=== PATIENT | female | born 1955 | race Caucasian/White ===

== ENCOUNTER 2019-05-04 07:53 | Day surgery (SDC) | payer OTHER ==
[2019-05-04] MEDS ORDERED: EPINEPHRINE/PF 1 MG/ML AMP ONE (08:27)
[2019-05-04] MEDS ORDERED: NS 0.9% VIAL 10 ML ONE (08:27)
[2019-05-04] MEDS ORDERED: LIDOCAINE 1% MPF 2 ML AMPULE ONE (08:28)
[2019-05-04] MEDS ORDERED: BALANCED SALT IRRIG PLAIN 500 ML BTL IRR ONE (08:28)
[2019-05-04] MEDS ORDERED: MOXIFLOXACIN HCL 10 DROPS/ML **OR USE OPTH ONE (08:28)
[2019-05-04] MEDS ORDERED: DUOVISC 1 KIT OPTH ONE (08:28)
[2019-05-04] MEDS ORDERED: LIDOCAINE 2% MPF 5 ML VIAL ONE (08:32)
[2019-05-04] MEDS ORDERED: BUPIVACAINE 0.25% PF 10 ML VIAL ONE (08:32)
[2019-05-04] MEDS ORDERED: NA CHLORIDE 0.9% 500 ML ONE (08:33)
[2019-05-04] MEDS ORDERED: LIDOCAINE HCL/PF 3.5% OPTH GEL ONE (08:33)
--- OUTSIDE RECORDS SUMMARY | 2019-05-04 08:59 | XMS REPORT | Continuity of Care Document ---
:1955 Author Organization [facility] Address [address] [place] [address] Phone Unavailable Care Team Providers Name Role Phone NEELAM GARCIA NP Primary Care Physician Insurance Providers Guarantor Jeremy Espana Address [address] [place] [address] Email [email or web address] Payer Medicare Policy Number [id number] Subscriber's Name Jeremy Espana Relationship Self / Same As Patient Group Number NA Group Name NA Payer O Policy Number [id number] Subscriber's Name Jeremy Espana Relationship Self / Same As Patient Group Number [id number] Group Name [employer] Advance Directives Directive Response Recorded Date/Time Patient/Family Given Education Material R/T Directives? Yes 01/21/19 12:51pm Problems Medical Problem Onset Date Status Left Achilles tendinitis Unknown Medications Current Home Medications Medication Dose Units Route Directions Days Qty Instructions Start Date Estrogens,Conj * 0.45 Mg ORAL Daily (Premarin 0.45 Mg*) 0.45 Mg Tab Loratadine/Pse Sulf 1 Tab ORAL Daily 10/240 Mg * (Claritin D 24 Hour 10/240 Mg *) 1 Tab Tab Social History No social history information available. Hospital Discharge Instructions No hospital discharge instruction information available. Plan of Care Prescriptions See Medication Section Functional Status No functional status information available. Allergies, Adverse Reactions, Alerts No known allergies. Immunizations No immunization information available. Vital Signs No vital sign information available. Results No relevant diagnostic test, laboratory data and/or discharge summary information available. Procedures Procedure Status Date Provider(s) X-RAY EXAM OF FOOT Completed 01/13/19 X-RAY EXAM OF FOOT Completed 01/13/19 Encounters Encounter Location Arrival/Admit Date Discharge/Depart Date Attending Provider Discharged [place] 01/21/19 12:52pm 01/25/19 11:59pm Glenn [facility] Registered [place] 01/13/19 11:45am Jaya [facility] Recent Diagnosis Left Achilles tendinitis
--- OUTSIDE RECORDS SUMMARY | 2019-05-04 08:59 | XMS REPORT | Continuity of Care Document ---
:1955 Author Organization [facility] Address [address] [place] [address] Phone Unavailable Care Team Providers Name Role Phone NEELAM GARCIA NP Primary Care Physician Insurance Providers Guarantor Jeremy Espana Address [address] [place] [address] Email [email or web address] Payer Medicare Policy Number [id number] Subscriber's Name Jeremy Espana Relationship Self / Same As Patient Group Number NA Group Name NA Payer O Policy Number [id number] Subscriber's Name Jeremy Espana Relationship Self / Same As Patient Group Number [id number] Group Name [employer] Advance Directives Directive Response Recorded Date/Time Patient/Family Given Education Material R/T Directives? No 01/27/19 6:18am Problems Medical Problem Onset Date Status Left [...] 01/13/19 X-RAY EXAM OF FOOT Completed 01/13/19 ULTRASOUND THERAPY Completed 01/21/19 PT EVAL LOW COMPLEX 20 MIN Completed 01/21/19 MOBILITY CURRENT STATUS Completed 01/21/19 MOBILITY GOAL STATUS Completed 01/21/19 Encounters Encounter Location Arrival/Admit Date Discharge/Depart Date Attending Provider Discharged [place] 02/19/19 11:00am 02/24/19 11:59pm Glenn [facility] Discharged [place] 01/21/19 12:52pm 01/25/19 11:59pm Glenn [facility] Registered [place] 01/13/19 11:45am Jaya [facility] Recent Diagnosis Left Achilles tendinitis
[2019-05-04] MEDS: PHENYLEPHRINE 10% OPTH 5ML ONE ×3 (09:00→09:11)
[2019-05-04] MEDS: CYCLOPENTOLATE 1% OPTH 2 ML ONE ×3 (09:00→09:11)
[2019-05-04] MEDS ORDERED: MIDAZOLAM HCL 2 MG/2 ML INJ ONE (09:54)
[2019-05-04] MEDS: TETRACAINE HCL 0.5% 4ML OPTH ONE ×2 (10:09→10:11)
[2019-05-04] MEDS ORDERED: FENTANYL CITR 100 MCG/2 ML ONE (10:28)
--- NOTE | 2019-05-04 10:37 | P.BOP ---
Preoperative diagnosis: Nuclear sclerotic cataract OS Postoperative diagnosis: Same Primary procedure: Phacoemulsification with IOL OS Estimated blood loss: None Anesthesia: Local (Topical with anesthesia for cataract surgery) Complications: None Implants: ZCB00 +16.0 Transferred to: Other (Day surgery) Condition: Good
--- NOTE | 2019-05-04 22:20 | OP ---
Date of Procedure: 05/04/2019 Surgeon: Gena Pat MD Anesthesiologist: Elida Myers CRNA; Celsa Nevarez CRNA and Sammy Nobles M.D. Preoperative Diagnosis: Nuclear sclerotic cataract, OS (left eye). Operation Performed: Phacoemulsification with intraocular lens implant, left eye. Anesthesia: Per cataract surgery. Complications: None. Description Of Procedure: In the operating room, the patient was prepped and draped in the usual cameron rile fashion for ophthalmic surgery. A lid speculum was placed in the left eye. Two paracentesis si amadou were made superiorly and inferiorly in the limbal cornea. Viscoat was placed in the anterior oleg mber and a crescent blade was used to make a corneal groove and tunnel, and a keratome was used to en ter the anterior chamber. Provisc was placed in the anterior chamber and a 360-degree capsulotomy wa s performed with a cystitome. The lens was hydrodissected with BSS and rotated freely. The lens was removed with a stop and chop technique. A 5.48 phaco CDE was used to remove the lens. Residual cor tre was removed with the irrigation and aspiration. Provisc was placed in the capsular bag. A ZCB00 +16.0 lens was placed in the capsular bag without complications. Irrigation and aspiration were use d to remove residual viscoelastic. The paracentesis sites were hydrated with BSS. The wound and par acentesis sites were inspected and found to be watertight. Vigamox 0.07 cc was placed intracamerally at the end of the procedure. The eye was irrigated with balanced salt solution. The eye was patche d with a soft cotton patch and Damon metal shield. The patient was returned to day surgery in good condition. Comments: Akten was placed in the eye in day surgery and irrigated out of the eye with BSS in the OR . Preservative-free 1% lidocaine was placed in the anterior chamber prior to Viscoat. Discharge Instructions: Ms. Espana is discharged to home in good condition and is to follow up with Dr Antonio Pat in the morning. LESLIE/JEREMIASL Voice ID: [id number] Report ID: [id number]
== END 2019-05-04 11:15 | disposition home or self-care (01) ==
LOC: OR 07:53
PROVIDERS: ATTEND Ophthalmology Retina Specialist
PROC: 08RK3JZ Replacement of Left Lens with Synthetic Substitute, Percutaneous Approach (ICD-10-PCS; principal; 2019-05-04 09:15)
DX: H25.12 Age-related nuclear cataract, left eye (principal)
CPT/HCPCS: 66984; J0171; J2250; J3010; J2001

== ENCOUNTER 2020-02-19 15:43 | Inpatient (IN) | payer OTHER ==
--- NOTE | 2020-02-19 13:35 | R.PREADM ---
SCREENING DATE AND TIME 02/18/2020 11:17 (CDT) ANTICIPATED REHAB ADMISSION DATE 02/20/2020 REFERRING FACILITY Acute care hospital REFERRAL DATE AND TIME 02/18/2020 11:17 (CDT) REFERRAL OFFICE PHONE ACUTE ADMIT DATE 02/05/2020 Previous Rehabilitation(s): No. ACUTE PEDIATRICIAN/MEDICAL DOCTOR/DC MATHEMATICS ACADEMIC CHAIR giovanni ATTENDING PHYSICIAN MARGARITO FARRELL REFERRING PHYSICIAN MARGARITO FARRELL REHAB FACILITY [facility] CLINICAL LIAISON Adalberto Byrd PHYSICIAN REVIEWER Dr. Florentin Hoover M.D. MR# [id number] NAME JEREMY ESPANA ADDRESS [address] [facility] [address] [facility] [address] DATE OF 1955 AGE 64 SSN# [id number] GENDER female MARITAL STATUS RACE white ADMIT FROM 02 - [facility] PRE-HOSPITAL LIVING SETTING 01 - Home (private home/apt. board/care, assisted living, shelter, transitional living) HOME TYPE AND DETAILS Type of home: single family house # of levels in the residence: 1 # of steps within the residence: 0 # of steps to enter the residence: 0 PRE-HOSPITAL LIVING WITH Family/Relatives FAMILY SUPPORT Yes PRIMARY FAMILY CONTACT NAME Prasad Espana PRIMARY FAMILY CONTACT PHONE [phone] PHONE PRIMARY FAMILY CONTACT ON ADM.? no IS PRIMARY FAMILY CONTACT AUTH. REP.? no 1ST EMERGENCY CONTACT Prasad Espana 1ST CONTACT PHONE [phone] PHONE 1ST CONTACT ON ADM. no IS 1ST CONTACT AUTH. REP.? no PHONE 2ND CONTACT ON ADM.? no PATIENT EMPLOYMENT STATUS Retired (for age) PATIENT EMPLOYER No Employer PAYOR INFORMATION: 1ST PAYOR NAME MEDICARE 1ST PAYOR PHONE 1ST PAYOR INJURY/ILLNESS DUE TO ACCIDENT? No ANOTHER CONSTITUTION PARTY RESPONSIBLE? No PRIMARY REHAB/ACUTE DIAGNOSIS: Subarachnoid hemorrhage REHAB IMPAIRMENT CATEGORY (RAIZA): 01 Stroke (STR) MEETS 60% rule AFFECTED EXTREMITIES: LLE, and LUE PRIMARY DIAGNOSIS-RELATED SURGERIES: No surgeries related to the primary diagnosis were performed. SUMMARY OF ACUTE HOSPITALIZATION: Pt. is a 64 yo Right-handed white female. On 02/05/2020 she was admitted to Acute care hospital with diagnosis Subarachnoid hemorrhage. Her impairment category is Stroke 01 - Left Body (Right Brain) (01.1). Pre-morbidly, Pt. was independent/mod-I in Transfers Control, Locomotion, and Self-Care; and she had good Balance, Safety Awareness, Social Cognition, Sphincter Control, and Communication. Currently, she has deficits of Transfers Control, Balance, Safety Awareness, and Self-Care. Pt. is now referred to [facility] for acute in-patient rehabilitation in order to maximize patient's functional independence in activities of daily living, strength, ROM, and mobi lity. Patient has realistic goal of being discharged at assistance level 6-Alcira to reside at Home with Fam angelica/Relatives. PAST MEDICAL HISTORY None MEDICATION ALLERGIES: No Known Drug Allergies (NKDA) ENVIRONMENTAL ALLERGIES: - Substance Allergies None Known - Other Allergies None Known CODE STATUS: Other (details in "Legal Documents") WEIGHT/HEIGHT/BMI: WEIGHT 159 lbs HEIGHT 5' 9" BMI 23.5 DIET: - Diet Type Regular - Diet - Solid Texture Regular - Diet - Liquid Texture Regular - Tube Feed N/A REVIEW OF SYSTEMS: - Gen Alert and awake Lying in bed No apparent distress Oriented to: person, time, and place - Vital Signs Temperature:96 SBP/DBP: 127/81 Pulse:94 Resp: 17 Vital signs stable, afebrile - CVS RRR VITAL SIGNS Temperature: 96 SBP/DBP: 127/81 Pulse 94 Resp: 17 Vital signs stable, afebrile MEDICATIONS/TREATMENT: Other- See attached MAR (Medication Administration Record). CURRENT SPHINCTER CONTROL: Pre-hospital bladder status: continent # of bladder accidents in the last 7 days prior to screenin Pre-hospital bowel status: continent # of bowel accidents in the last 7 days prior to screenin Last Bowel Movement Date: 02/18/2020 CURRENT LOCOMOTION STATUS: distance walked 16 feet DETAILED CURRENT FUNCTIONAL STATUS: - Walking score based on distance walked: 0(N/A) QI SCORES: - Self-Care A. Eating 04-Supervision or touching assistance B. Oral hygiene 04-Supervision or touching assistance C. Toileting hygiene 03-Partial/moderate assistance E. Shower/bathe self 03-Partial/moderate assistance F. Upper body dressing 03-Partial/moderate assistance G. Lower body dressing 03-Partial/moderate assistance H. Putting on/taking off footwear 88-Not attempted due to medical condition or safety concerns - Mobility A. Roll left and right 03-Partial/moderate assistance B. Sit to lying 03-Partial/moderate assistance C. Lying to sitting on side of bed 03-Partial/moderate assistance D. Sit to stand 03-Partial/moderate assistance E. Chair/gts-sk-bpkuc transfer 03-Partial/moderate assistance F. Toilet transfer 03-Partial/moderate assistance G. Car transfer 88-Not attempted due to medical condition or safety concerns I. Walk 10 feet 88-Not attempted due to medical condition or safety concerns J. Walk 50 feet with two turns 88-Not attempted due to medical condition or safety concerns K. Walk 150 feet 88-Not attempted due to medical condition or safety concerns L. Walking 10 feet on uneven surfaces 88-Not attempted due to medical condition or safety concerns M. 1 step (curb) 88-Not attempted due to medical condition or safety concerns N. 4 steps 88-Not attempted due to medical condition or safety concerns O. 12 steps 88-Not attempted due to medical condition or safety concerns P. Picking up object 01-Dependent R. Wheel 50 feet with two turns 88-Not attempted due to medical condition or safety concerns S. Wheel 150 feet 88-Not attempted due to medical condition or safety concerns - Bladder and Bowel Bladder continence 0-Always continent Bowel continence 0-Always continent - Endurance Poor - Balance Poor - Safety Awareness Poor CURRENT FUNC. DEFICITS: Self-Care, Mobility, Endurance, Balance, and Safety Awareness CURRENT / PREVIOUS ASSISTIVE DEVICES: 3-in-1 [facility] Bed Rolling Walker Shower Chair Wheelchair HISTORY OF FALLS. HAS THE PATIENT HAD TWO OR MORE FALLS IN THE PAST YEAR OR ANY FALL WITH INJURY IN T HE PAST YEAR?: No PRIOR SURGERY. DID THE PATIENT HAVE MAJOR SURGERY DURING THE 100 DAYS PRIOR TO ADMISSION?: No THERAPY NOTES FROM ACUTE CARE: Attached. SPECIAL NEEDS: - Safety Concerns Skin breakdown precautions needed due to skin breakdown risk PRECAUTIONS: - Weight Bearing Precaution WBAT left LE PATIENT NEEDS ACTIVE AND ONGOING THERAPEUTIC INTERVENTION OF MULTIPLE THERAPY DISCIPLINES, INCLUDING: - Occupational Therapy Cognitive Retraining. Visual Perceptual Training. - Dietary and Nutrition Adequate Nutrition. Nutritional Education. Nutritional Supplements. - Speech Therapy Cognitive Training. Expressive Language Skills. Memory Strategies. Receptive Language Skills. Speech Intelligibility Training. PATIENT NEEDS CLOSE MEDICAL SUPERVISION BY A REHABILITATION PHYSICIAN FOR: Coordination of Treatment Team PATIENT REQUIRES 24X7 REHAB NURSING FOR MEDICAL AND FUNCTIONAL MGT. OF THE FOLLOWING DEFICITS: Disease Management Medication Management Patient/Family Education Providing Safe Environment PATIENT REQUIRES INTENSIVE, COORDINATED INTERDISCIPLINARY APPROACH TO REHAB: Arranging Home Equipment/Services Discharge Planning Family Intervention/Training Surg Tech/Case Management PATIENT REHAB POTENTIAL: Zelda ESPANA is able and expected to receive 3 hours of individualized therapy daily on at least 5 of ever y 7 days Zelda ESPANA's prognosis for significant practical improvement within a reasonable period of time appears Good Expected level of measurable improvement will be of a practical value to Zelda ESPANA's functional capacit y or adaptations to impairments Has a viable Discharge Plan Medically appropriate; condition is sufficiently stable to participate in intensive rehab program DISCHARGE PLAN: - Estimated Length of Stay (days) 17. - Consensus on plan Discharge plan has been discussed with primary caregiver. Patient/Family is in agreement with the nereida n. Primary caregiver is in agreement with the plan. - Patient/Family Goals Return home independently. - Planned Living Setting Upon Discharge Home, to live with Family/Relatives. RECOMMENDED CARE LEVEL: IRF RECOMMENDATION DETAILS: Recommended Admission to Comprehensive Rehabilitation Program to Increase Functional [place] SCREENER'S COMPLETENESS CONFIRMATION: - Screening Confirmation The patient data collection on this preadmission screening form is finished PHYSICIANS REVIEW AND ADMISSION DETERMINATION Admit - Based on my review of the Pre-Admission Screening results, in my medical judgment and experie nce, I concur with the findings and recommend admission to [facility], as this patient requires an IRF level of care. SIGNATURE PANEL: Clinical Liaison - [electronically] signed by Ada Rivera Rack Loader on 02/19/2020 at 11:57 (C DT) Clinical Liaison - [electronically] signed by Avis Zelaya RN on 02/19/2020 at 12:03 (CDT) Clinical Liaison - [electronically] signed by Avis Zelaya RN on 02/19/2020 at 12:04 (CDT) Physician Reviewer - [electronically] signed by Dr. Florentin Hoover M.D. on 02/19/2020 at 13:34 (CDT )
--- NOTE | 2020-02-21 09:20 | R.PREADM ---
SCREENING DATE AND TIME 02/20/2020 13:48 (CDT) ANTICIPATED REHAB ADMISSION DATE 02/22/2020 REFERRING FACILITY Acute care hospital REFERRAL DATE AND TIME 02/20/2020 13:49 (CDT) REFERRAL OFFICE PHONE ACUTE ADMIT DATE 02/05/2020 Previous Rehabilitation(s): No. ACUTE LABEL MAKER/DC BOARDING SPECIALIST giovanni ATTENDING PHYSICIAN MARGARITO FARRELL REFERRING PHYSICIAN MARGARITO FARRELL REHAB FACILITY [facility] CLINICAL LIAISON Maxime Stewart PHYSICIAN REVIEWER Dr. Florentin Hoover M.D. MR# [id number] NAME JEREMY ESPANA ADDRESS [address] [place] [address] PHONE [facility] [address] DATE OF 1955 AGE 64 SSN# [id number] GENDER female MARITAL STATUS RACE white PREF. LANGUAGE (IF NON-ROMANIAN) Jamaican ADMIT FROM 02 - [facility] PRE-HOSPITAL LIVING SETTING 01 - Home (private home/apt. board/care, assisted living, intermediate, transitional living) HOME TYPE AND DETAILS Type of home: single family house # of levels in the residence: 1 # of steps within the residence: 0 # of steps to enter the residence: 0 PRE-HOSPITAL LIVING WITH Family/Relatives FAMILY SUPPORT Yes PRIMARY FAMILY CONTACT NAME Prasad Espana PRIMARY FAMILY CONTACT PHONE [phone] PHONE PRIMARY FAMILY CONTACT ON ADM.? no IS PRIMARY FAMILY CONTACT AUTH. REP.? no 1ST EMERGENCY CONTACT Prasad Espana 1ST CONTACT PHONE [phone] PHONE 1ST CONTACT ON ADM. no IS 1ST CONTACT AUTH. REP.? no PHONE 2ND CONTACT ON ADM.? no PATIENT EMPLOYMENT STATUS Retired (for age) PATIENT EMPLOYER No Employer PAYOR INFORMATION: 1ST PAYOR NAME MEDICARE 1ST PAYOR PHONE 1ST PAYOR INJURY/ILLNESS DUE TO ACCIDENT? No ANOTHER LIBERTARIAN RESPONSIBLE? No PRIMARY REHAB/ACUTE DIAGNOSIS: Subarachnoid hemorrhage ONSET DATE 02/05/2020 REHAB IMPAIRMENT CATEGORY (RAIZA): 01 Stroke (STR) MEETS 60% rule AFFECTED EXTREMITIES: LLE, and LUE PRIMARY DIAGNOSIS-RELATED SURGERIES: No surgeries related to the primary diagnosis were performed. SUMMARY OF ACUTE HOSPITALIZATION: Pt. is a 64 yo Right-handed white female. On 02/05/2020 she was admitted to Acute care hospital with diagnosis Subarachnoid hemorrhage. Her impairment category is Stroke 01 - Left Body (Right Brain) (01.1). Pre-morbidly, Pt. was independent/mod-I in Transfers Control, Locomotion, and Self-Care; and she had good Balance, Safety Awareness, Social Cognition, Sphincter Control, and Communication. Currently, she has deficits of Transfers Control, Balance, Safety Awareness, and Self-Care. Pt. is now referred to [facility] for acute in-patient rehabilitation in order to maximize patient's functional independence in activities of daily living, strength, ROM, and mobi lity. Patient has realistic goal of being discharged at assistance level 6-Alcira to reside at Home with Fam angelica/Relatives. PAST MEDICAL HISTORY None MEDICATION ALLERGIES: No Known Drug Allergies (NKDA) ENVIRONMENTAL ALLERGIES: - Substance Allergies None Known - Other Allergies None Known CODE STATUS: Other (details in "Legal Documents") WEIGHT/HEIGHT/BMI: WEIGHT 159 lbs HEIGHT 5' 9" BMI 23.5 DIET: - Diet Type Regular - Diet - Solid Texture Regular - Diet - Liquid Texture Regular - Tube Feed N/A REVIEW OF SYSTEMS: - Gen Alert and awake Lying in bed No apparent distress Oriented to: person, time, and place - Vital Signs Temperature:96 SBP/DBP: 127/81 Pulse:94 Resp: 17 Vital signs stable, afebrile - CVS RRR VITAL SIGNS Temperature: 96 SBP/DBP: 127/81 Pulse 94 Resp: 17 Vital signs stable, afebrile MEDICATIONS/TREATMENT: Other- See attached MAR (Medication Administration Record). CURRENT SPHINCTER CONTROL: Pre-hospital bladder status: continent # of bladder accidents in the last 7 days prior to screenin Pre-hospital bowel status: continent # of bowel accidents in the last 7 days prior to screenin Last Bowel Movement Date: 02/18/2020 CURRENT LOCOMOTION STATUS: distance walked 16 feet DETAILED CURRENT FUNCTIONAL STATUS: - Walking score based on distance walked: 0(N/A) QI SCORES: - Self-Care A. Eating 04-Supervision or touching assistance B. Oral hygiene 04-Supervision or touching assistance C. Toileting hygiene 03-Partial/moderate assistance E. Shower/bathe self 03-Partial/moderate assistance F. Upper body dressing 03-Partial/moderate assistance G. Lower body dressing 03-Partial/moderate assistance H. Putting on/taking off footwear 88-Not attempted due to medical condition or safety concerns - Mobility A. Roll left and right 03-Partial/moderate assistance B. Sit to lying 03-Partial/moderate assistance C. Lying to sitting on side of bed 03-Partial/moderate assistance D. Sit to stand 03-Partial/moderate assistance E. Chair/aqx-wv-esazk transfer 03-Partial/moderate assistance F. Toilet transfer 03-Partial/moderate assistance G. Car transfer 88-Not attempted due to medical condition or safety concerns I. Walk 10 feet 88-Not attempted due to medical condition or safety concerns J. Walk 50 feet with two turns 88-Not attempted due to medical condition or safety concerns K. Walk 150 feet 88-Not attempted due to medical condition or safety concerns L. Walking 10 feet on uneven surfaces 88-Not attempted due to medical condition or safety concerns M. 1 step (curb) 88-Not attempted due to medical condition or safety concerns N. 4 steps 88-Not attempted due to medical condition or safety concerns O. 12 steps 88-Not attempted due to medical condition or safety concerns P. Picking up object 01-Dependent R. Wheel 50 feet with two turns 88-Not attempted due to medical condition or safety concerns S. Wheel 150 feet 88-Not attempted due to medical condition or safety concerns - Bladder and Bowel Bladder continence 0-Always continent Bowel continence 0-Always continent - Endurance Poor - Balance Poor - Safety Awareness Poor CURRENT FUNC. DEFICITS: Self-Care, Mobility, Endurance, Balance, and Safety Awareness CURRENT / PREVIOUS ASSISTIVE DEVICES: 3-in-1 [facility] Bed Rolling Walker Shower Chair Wheelchair HISTORY OF FALLS. HAS THE PATIENT HAD TWO OR MORE FALLS IN THE PAST YEAR OR ANY FALL WITH INJURY IN T HE PAST YEAR?: No PRIOR SURGERY. DID THE PATIENT HAVE MAJOR SURGERY DURING THE 100 DAYS PRIOR TO ADMISSION?: No THERAPY NOTES FROM ACUTE CARE: Attached. SPECIAL NEEDS: - Safety Concerns Skin breakdown precautions needed due to skin breakdown risk PRECAUTIONS: - Weight Bearing Precaution WBAT left LE PATIENT NEEDS ACTIVE AND ONGOING THERAPEUTIC INTERVENTION OF MULTIPLE THERAPY DISCIPLINES, INCLUDING: - Occupational Therapy Cognitive Retraining. Visual Perceptual Training. - Dietary and Nutrition Adequate Nutrition. Nutritional Education. Nutritional Supplements. - Speech Therapy Cognitive Training. Expressive Language Skills. Memory Strategies. Receptive Language Skills. Speech Intelligibility Training. PATIENT NEEDS CLOSE MEDICAL SUPERVISION BY A REHABILITATION PHYSICIAN FOR: Coordination of Treatment Team PATIENT REQUIRES 24X7 REHAB NURSING FOR MEDICAL AND FUNCTIONAL MGT. OF THE FOLLOWING DEFICITS: Disease Management Medication Management Patient/Family Education Providing Safe Environment PATIENT REQUIRES INTENSIVE, COORDINATED INTERDISCIPLINARY APPROACH TO REHAB: Arranging Home Equipment/Services Discharge Planning Family Intervention/Training Poultry Picking Machine Tender/Case Management PATIENT REHAB POTENTIAL: Zelda ESPANA is able and expected to receive 3 hours of individualized therapy daily on at least 5 of ever y 7 days Zelda ESPANA's prognosis for significant practical improvement within a reasonable period of time appears Good Expected level of measurable improvement will be of a practical value to Zelda ESPANA's functional capacit y or adaptations to impairments Has a viable Discharge Plan Medically appropriate; condition is sufficiently stable to participate in intensive rehab program DISCHARGE PLAN: - Estimated Length of Stay (days) 17. - Consensus on plan Discharge plan has been discussed with primary caregiver. Patient/Family is in agreement with the nereida n. Primary caregiver is in agreement with the plan. - Patient/Family Goals Return home independently. - Planned Living Setting Upon Discharge Home, to live with Family/Relatives. RECOMMENDED CARE LEVEL: IRF RECOMMENDATION DETAILS: Recommended Admission to Comprehensive Rehabilitation Program to Increase Functional [place] SCREENER'S COMPLETENESS CONFIRMATION: - Screening Confirmation The patient data collection on this preadmission screening form is finished PHYSICIANS REVIEW AND ADMISSION DETERMINATION Admit - Based on my review of the Pre-Admission Screening results, in my medical judgment and experie nce, I concur with the findings and recommend admission to [facility], as this patient requires an IRF level of care. SIGNATURE PANEL: Clinical Liaison - [electronically] signed by Ada Rivera [employer] on 02/20/2020 at 13:50 (C DT) Clinical Liaison - [electronically] signed by Maxime Stewart PT on 02/21/2020 at 08:53 (CDT) Physician Reviewer - [electronically] signed by Dr. Florentin Hoover M.D. on 02/21/2020 at 09:19 (CDT )
--- NOTE | 2020-02-22 09:39 | R.PREADM ---
SCREENING DATE AND TIME 02/21/2020 19:10 (CDT) ANTICIPATED REHAB ADMISSION DATE 02/24/2020 REFERRING FACILITY Acute care hospital REFERRAL DATE AND TIME 02/21/2020 19:10 (CDT) REFERRAL OFFICE PHONE ACUTE ADMIT DATE 02/05/2020 Previous Rehabilitation(s): No. ACUTE PORT CDL A DRIVER/DC ACCOUNTING CONSULTANT giovanni ATTENDING PHYSICIAN MARGARITO FARRELL REFERRING PHYSICIAN MARGARITO FARRELL REHAB FACILITY [facility] CLINICAL LIAISON Avis Christie PHYSICIAN REVIEWER Dr. Florentin Hoover M.D. MR# [id number] NAME JEREMY ESPANA ADDRESS [address] [facility] PHONE [facility] [address] DATE OF 1955 AGE 64 SSN# [id number] GENDER female MARITAL STATUS RACE white PREF. LANGUAGE (IF NON-SPANISH) Albanian ADMIT FROM 02 - [facility] PRE-HOSPITAL LIVING SETTING 01 - Home (private home/apt. board/care, assisted living, [facility], transitional living) HOME TYPE AND DETAILS Type of home: single family house # of levels in the residence: 1 # of steps within the residence: 0 # of steps to enter the residence: 0 PRE-HOSPITAL LIVING WITH Family/Relatives FAMILY SUPPORT Yes PRIMARY FAMILY CONTACT NAME Prasad Espana PRIMARY FAMILY CONTACT PHONE [phone] PHONE PRIMARY FAMILY CONTACT ON ADM.? no IS PRIMARY FAMILY CONTACT AUTH. REP.? no 1ST EMERGENCY CONTACT Prasad Espana 1ST CONTACT PHONE [phone] PHONE 1ST CONTACT ON ADM. no IS 1ST CONTACT AUTH. REP.? no PHONE 2ND CONTACT ON ADM.? no PATIENT EMPLOYMENT STATUS Retired (for age) PATIENT EMPLOYER No Employer PAYOR INFORMATION: 1ST PAYOR NAME MEDICARE 1ST PAYOR PHONE 1ST PAYOR INJURY/ILLNESS DUE TO ACCIDENT? No ANOTHER LIBERTARIAN RESPONSIBLE? No PRIMARY REHAB/ACUTE DIAGNOSIS: Subarachnoid hemorrhage ONSET DATE 02/05/2020 REHAB IMPAIRMENT CATEGORY (RAIZA): 01 Stroke (STR) MEETS 60% rule AFFECTED EXTREMITIES: LLE, and LUE PRIMARY DIAGNOSIS-RELATED SURGERIES: No surgeries related to the primary diagnosis were performed. SUMMARY OF ACUTE HOSPITALIZATION: Pt. is a 64 yo Right-handed white female. On 02/05/2020 she was admitted to Acute care hospital with diagnosis Subarachnoid hemorrhage. Her impairment category is Stroke 01 - Left Body (Right Brain) (01.1). Pre-morbidly, Pt. was independent/mod-I in Transfers Control, Locomotion, and Self-Care; and she had good Balance, Safety Awareness, Social Cognition, Sphincter Control, and Communication. Currently, she has deficits of Transfers Control, Balance, Safety Awareness, and Self-Care. Pt. is now referred to [facility] for acute in-patient rehabilitation in order to maximize patient's functional independence in activities of daily living, strength, ROM, and mobi lity. Patient has realistic goal of being discharged at assistance level 6-Alcira to reside at Home with Fam angelica/Relatives. PAST MEDICAL HISTORY None MEDICATION ALLERGIES: No Known Drug Allergies (NKDA) ENVIRONMENTAL ALLERGIES: - Substance Allergies None Known - Other Allergies None Known CODE STATUS: Other (details in "Legal Documents") WEIGHT/HEIGHT/BMI: WEIGHT 159 lbs HEIGHT 5' 9" BMI 23.5 DIET: - Diet Type Regular - Diet - Solid Texture Regular - Diet - Liquid Texture Regular - Tube Feed N/A REVIEW OF SYSTEMS: - Gen Alert and awake Lying in bed No apparent distress Oriented to: person, time, and place - Vital Signs Temperature:96 SBP/DBP: 127/81 Pulse:94 Resp: 17 Vital signs stable, afebrile - CVS RRR VITAL SIGNS Temperature: 96 SBP/DBP: 127/81 Pulse 94 Resp: 17 Vital signs stable, afebrile MEDICATIONS/TREATMENT: Other- See attached MAR (Medication Administration Record). CURRENT SPHINCTER CONTROL: Pre-hospital bladder status: continent # of bladder accidents in the last 7 days prior to screenin Pre-hospital bowel status: continent # of bowel accidents in the last 7 days prior to screenin Last Bowel Movement Date: 02/18/2020 CURRENT LOCOMOTION STATUS: distance walked 16 feet DETAILED CURRENT FUNCTIONAL STATUS: - Walking score based on distance walked: 0(N/A) QI SCORES: - Self-Care A. Eating 04-Supervision or touching assistance B. Oral hygiene 04-Supervision or touching assistance C. Toileting hygiene 03-Partial/moderate assistance E. Shower/bathe self 03-Partial/moderate assistance F. Upper body dressing 03-Partial/moderate assistance G. Lower body dressing 03-Partial/moderate assistance H. Putting on/taking off footwear 88-Not attempted due to medical condition or safety concerns - Mobility A. Roll left and right 03-Partial/moderate assistance B. Sit to lying 03-Partial/moderate assistance C. Lying to sitting on side of bed 03-Partial/moderate assistance D. Sit to stand 03-Partial/moderate assistance E. Chair/cvi-yx-licum transfer 03-Partial/moderate assistance F. Toilet transfer 03-Partial/moderate assistance G. Car transfer 88-Not attempted due to medical condition or safety concerns I. Walk 10 feet 88-Not attempted due to medical condition or safety concerns J. Walk 50 feet with two turns 88-Not attempted due to medical condition or safety concerns K. Walk 150 feet 88-Not attempted due to medical condition or safety concerns L. Walking 10 feet on uneven surfaces 88-Not attempted due to medical condition or safety concerns M. 1 step (curb) 88-Not attempted due to medical condition or safety concerns N. 4 steps 88-Not attempted due to medical condition or safety concerns O. 12 steps 88-Not attempted due to medical condition or safety concerns P. Picking up object 01-Dependent R. Wheel 50 feet with two turns 88-Not attempted due to medical condition or safety concerns S. Wheel 150 feet 88-Not attempted due to medical condition or safety concerns - Bladder and Bowel Bladder continence 0-Always continent Bowel continence 0-Always continent - Endurance Poor - Balance Poor - Safety Awareness Poor CURRENT FUNC. DEFICITS: Self-Care, Mobility, Endurance, Balance, and Safety Awareness CURRENT / PREVIOUS ASSISTIVE DEVICES: 3-in-1 [employer] [facility] Bed Rolling Walker Shower Chair Wheelchair HISTORY OF FALLS. HAS THE PATIENT HAD TWO OR MORE FALLS IN THE PAST YEAR OR ANY FALL WITH INJURY IN T HE PAST YEAR?: No PRIOR SURGERY. DID THE PATIENT HAVE MAJOR SURGERY DURING THE 100 DAYS PRIOR TO ADMISSION?: No THERAPY NOTES FROM ACUTE CARE: Attached. SPECIAL NEEDS: - Safety Concerns Skin breakdown precautions needed due to skin breakdown risk PRECAUTIONS: - Weight Bearing Precaution WBAT left LE PATIENT NEEDS ACTIVE AND ONGOING THERAPEUTIC INTERVENTION OF MULTIPLE THERAPY DISCIPLINES, INCLUDING: - Occupational Therapy Cognitive Retraining. Visual Perceptual Training. - Dietary and Nutrition Adequate Nutrition. Nutritional Education. Nutritional Supplements. - Speech Therapy Cognitive Training. Expressive Language Skills. Memory Strategies. Receptive Language Skills. Speech Intelligibility Training. PATIENT NEEDS CLOSE MEDICAL SUPERVISION BY A REHABILITATION PHYSICIAN FOR: Coordination of Treatment Team PATIENT REQUIRES 24X7 REHAB NURSING FOR MEDICAL AND FUNCTIONAL MGT. OF THE FOLLOWING DEFICITS: Disease Management Medication Management Patient/Family Education Providing Safe Environment PATIENT REQUIRES INTENSIVE, COORDINATED INTERDISCIPLINARY APPROACH TO REHAB: Arranging Home Equipment/Services Discharge Planning Family Intervention/Training Cloth Brushing [employer] Supervisor/Case Management PATIENT REHAB POTENTIAL: Zelda ESPANA is able and expected to receive 3 hours of individualized therapy daily on at least 5 of ever y 7 days Zelda ESPANA's prognosis for significant practical improvement within a reasonable period of time appears Good Expected level of measurable improvement will be of a practical value to Zelda ESPANA's functional capacit y or adaptations to impairments Has a viable Discharge Plan Medically appropriate; condition is sufficiently stable to participate in intensive rehab program DISCHARGE PLAN: - Estimated Length of Stay (days) 17. - Consensus on plan Discharge plan has been discussed with primary caregiver. Patient/Family is in agreement with the nereida n. Primary caregiver is in agreement with the plan. - Patient/Family Goals Return home independently. - Planned Living Setting Upon Discharge Home, to live with Family/Relatives. RECOMMENDED CARE LEVEL: IRF RECOMMENDATION DETAILS: Recommended Admission to Comprehensive Rehabilitation Program to Increase Functional [place] SCREENER'S COMPLETENESS CONFIRMATION: - Screening Confirmation The patient data collection on this preadmission screening form is finished PHYSICIANS REVIEW AND ADMISSION DETERMINATION Admit - Based on my review of the Pre-Admission Screening results, in my medical judgment and experie nce, I concur with the findings and recommend admission to [facility], as this patient requires an IRF level of care. SIGNATURE PANEL: Clinical Liaison - [electronically] signed by Ada Rivera Tutor Coordinator on 02/21/2020 at 19:11 (C DT) Clinical Liaison - [electronically] signed by Avis Zelaya RN on 02/22/2020 at 08:45 (CDT) Physician Reviewer - [electronically] signed by Dr. Florentin Hoover M.D. on 02/22/2020 at 09:38 (CDT )
--- OUTSIDE RECORDS SUMMARY | 2020-02-22 14:56 | XMS REPORT ---
:1955 Author Organization [facility] t Address [address] [place] [address] Dr. Smiley [address] [place] [address] Care Team Providers Name Role Phone DONNA SABILLON Unavailable Unavailable Problems Condition Condition Condition Status Onset Resolution Last Treatin g Comments Name Details Category Date Date Treatment Clinician Date Impacted Impacted Problem Active cerumen Cerumen Fluid level Fluid Level Problem Active behind behind tympanic Tympanic membrane Membrane Eustachian Eustachian Problem Active tube Tube disorder Disorder Upper Upper Problem Active respiratory Respiratory infection Infection Sinusitis Sinusitis Problem Active Seasonal Seasonal Problem Active allergic Allergic rhinitis Rhinitis Ganglion/sy Ganglion/sy Problem Active novial cyst novial Cyst - hand - Hand Mammography Mammography Problem Active abnormal Abnormal Elevated Elevated Problem Active blood Blood pressure Pressure Allergies, Adverse Reactions, Alerts This patient has no known allergies or adverse reactions. Medications Ordered Filled Start Stop Current Ordering Indication Dosage Frequency Signature Comments Components Medication Medication Date Date Medication? Clinician (SIG) Name Name Claritin 10 Claritin 10 No 1 Q1D Claritin mg tablet mg tablet 10 mg Take 1 Take 1 tablet tablet tablet Take 1 every day every day tablet by oral by oral every day route. route. by oral route. fluticasone fluticasone No fluticas on propionate propionate e 50 50 propionate mcg/actuati mcg/actuati 50 on nasal on nasal mcg/actuat spray,suspe spray,suspe ion nasa l nsion USE nsion USE spray,susp ONE SPRAY ONE SPRAY ension USE IN EACH IN EACH ONE SPRAY NOSTRIL NOSTRIL IN EACH TWICE DAILY TWICE DAILY NOSTRIL TWICE DAILY Immunizations Ordered Immunization Name Filled Immunization Name Date Comments pneumococcal conjugate PCV pneumococcal conjugate 2019-07-23 Comp leted 13 PCV 13 00:00:00 influenza, injectable, influenza, injectable, 2019-07-23 Complete d quadrivalent quadrivalent 00:00:00 influenza, recombinant, influenza, recombinant, 2018-08-05 Comple charles quadrIvalent,injectable, quadrIvalent,injectable, 15:09:00 preservative free preservative free influenza, injectable, influenza, injectable, 2017-08-12 Complete d quadrivalent quadrivalent 00:00:00 influenza, injectable, influenza, injectable, 2016-09-04 Complete d quadrivalent quadrivalent 00:00:00 influenza, injectable, influenza, injectable, 2015-09-13 Complete d quadrivalent, preservative quadrivalent, 15:19:00 free preservative free zoster zoster 2014-05-11 Completed 12:48:50 pneumococcal pneumococcal 2011-10-28 Completed polysaccharide PPV23 polysaccharide PPV23 00:00:00 Vital Signs Vital Name Observation Time Observation Value Comments BP Diastolic 2019-08-10 00:00:00 99 mm[Hg] Height 2019-08-10 00:00:00 63 [in_i] BP Systolic 2019-08-10 00:00:00 146 mm[Hg] Body Weight 2019-08-10 00:00:00 2208 [oz_av] Procedures and Interventions Procedure Date / Time Performed Performing Clinici an MAMMO, screening, digital, bilateral 2019-08-10 00:00:00 unlisted imaging order 2019-08-10 00:00:00 Colonoscopy 2013-10-28 00:00:00 Hysterectomy 1983-10-28 00:00:00 Caesarean Section 1982-10-28 00:00:00 Tonsillectomy 1969-10-28 00:00:00 Plan of Care Planned Activity Planned Date Comments Encounters Start End Encounter Admission Attending Care Care Encounter Date/Time Date/Time Type Type Clinicians Facility Department ID 2019-08-10 2019-08-10 [facility] [place] - [id number] 00:00:00 00:00:00 [facility]: [address] - [address], [place] [address], Ph. Results Test Description Test Time Test Comments Text Results Atomic Results Result Comments BASIC METABOLIC PANEL 2020-02-22 06:13:00 Test Item Value Reference Range Comments SODIUM (BEAKER) (test code 139 meq/L 136-145 = 381) POTASSIUM (BEAKER) (test 3.3 meq/L 3.5-5.1 code = 379) CHLORIDE (BEAKER) (test 105 meq/L 98-107 code = 382) CO2 (BEAKER) (test code = 26 meq/L 22-29 355) BLOOD UREA NITROGEN 11 mg/dL 7-21 (BEAKER) (test code = 354) CREATININE (BEAKER) (test 0.55 mg/dL 0.57-1.25 code = 358) GLUCOSE RANDOM (BEAKER) 105 mg/dL 70-105 (test code = 652) CALCIUM (BEAKER) (test code 8.4 mg/dL 8.4-10.2 = 697) EGFR (BEAKER) (test code = 111 mL/min/1.73 sq m ESTIMATED GFR IS NOT 1092) ACCURATE CREA TININE CLEARANCE IN PRE DICTING GLOMERULAR FILTR ATION RATE. ESTIMATED GFR IS NOT APPLICABLE FOR D IALYSIS PATIENTS. Lens Grinder ID - PIAYA LCBC W/PLT COUNT & AUTO [id number] 04:42:00 Test Item Value Reference Range Comments WHITE BLOOD CELL COUNT (BEAKER) (test code = 8.9 K/ L 3.5 -10.5 775) RED BLOOD CELL COUNT (BEAKER) (test code = 761) 3.17 M/ L 3.93-5.22 HEMOGLOBIN (BEAKER) (test code = 410) 9.6 GM/DL 11.2-15.7 HEMATOCRIT (BEAKER) (test code = 411) 29.8 % 34.1-44.9 MEAN CORPUSCULAR VOLUME (BEAKER) (test code = 94.0 fL 79 .4-94.8 753) MEAN CORPUSCULAR HEMOGLOBIN (BEAKER) (test code 30.3 pg 25.6-32.2 = 751) MEAN CORPUSCULAR HEMOGLOBIN CONC (BEAKER) (test 32.2 GM/DL 32.2-35.5 code = 752) RED CELL DISTRIBUTION WIDTH (BEAKER) (test code 14.1 % 11.7-14.4 = 412) PLATELET COUNT (BEAKER) (test code = 756) 449 K/CU MM 150-45 0 MEAN PLATELET VOLUME (BEAKER) (test code = 754) 8.9 fL 9.4-12.3 NUCLEATED RED BLOOD CELLS (BEAKER) (test code = 0 /100 WBC 0-0 413) NEUTROPHILS RELATIVE PERCENT (BEAKER) (test code 76 % = 429) LYMPHOCYTES RELATIVE PERCENT (BEAKER) (test code 13 % = 430) MONOCYTES RELATIVE PERCENT (BEAKER) (test code = 8 % 431) EOSINOPHILS RELATIVE PERCENT (BEAKER) (test code 2 % = 432) BASOPHILS RELATIVE PERCENT (BEAKER) (test code = 0 % 437) NEUTROPHILS ABSOLUTE COUNT (BEAKER) (test code = 6.76 K/ L 1.56-6.13 670) LYMPHOCYTES ABSOLUTE COUNT (BEAKER) (test code = 1.17 K/ L 1.18-3.74 414) MONOCYTES ABSOLUTE COUNT (BEAKER) (test code = 0.72 K/ L 0 .24-0.36 415) EOSINOPHILS ABSOLUTE COUNT (BEAKER) (test code = 0.18 K/ L 0.04-0.36 416) BASOPHILS ABSOLUTE COUNT (BEAKER) (test code = 0.04 K/ L 0 .01-0.08 417) IMMATURE GRANULOCYTES-RELATIVE PERCENT (BEAKER) 1 % 0-1 (test code = 2801) POCT-GLUCOSE [id number] 18:26:00 Test Item Value Reference Range Comments POC-GLUCOSE METER (BEAKER) 87 mg/dL 70-110 : [facility] [address] (test code = 1538) [facility], [address]: Lens Grinder/Technic melody ID = [id number] for Phil Garrett ia BASIC METABOLIC [id number] 07:21:00 Test Item Value Reference Range Comments SODIUM (BEAKER) (test 135 meq/L 136-145 code = 381) POTASSIUM (BEAKER) (test 3.0 meq/L 3.5-5.1 code = 379) CHLORIDE (BEAKER) (test 104 meq/L 98-107 code = 382) CO2 (BEAKER) (test code = 25 meq/L 22-29 355) BLOOD UREA NITROGEN 12 mg/dL 7-21 (BEAKER) (test code = 354) CREATININE (BEAKER) (test 0.58 mg/dL 0.57-1.25 code = 358) GLUCOSE RANDOM (BEAKER) 144 mg/dL 70-105 (test code = 652) CALCIUM (BEAKER) (test 8.7 mg/dL 8.4-10.2 code = 697) EGFR (BEAKER) (test code 104 mL/min/1.73 sq m ES TIMATED GFR IS NOT = 1092) ACCURATE CREA TININE CLEARANCE IN PRE DICTING GLOMERULAR FILTR ATION RATE. ESTIMATED GFR IS NOT APPLICABLE F OR DIALYSIS PATIENT S. Lens Grinder ID - JOHN LURINALYSIS W/ REFLEX URINE [id number] 07:12:00 Test Item Value Reference Range Comments COLOR (BEAKER) (test code = 470) Light Yellow CLARITY (BEAKER) (test code = 469) Clear SPECIFIC GRAVITY UA (BEAKER) (test code = 468) 1.018 1 .001-1.035 PH UA (BEAKER) (test code = 467) 7.0 5.0-8.0 PROTEIN UA (BEAKER) (test code = 464) Negative Negative GLUCOSE UA (BEAKER) (test code = 365) Negative Negative KETONES UA (BEAKER) (test code = 371) Negative Negative BILIRUBIN UA (BEAKER) (test code = 462) Negative Negative BLOOD UA (BEAKER) (test code = 461) Trace Negative NITRITE UA (BEAKER) (test code = 465) Negative Negative LEUKOCYTE ESTERASE UA (BEAKER) (test code = Negative Nega tive 466) UROBILINOGEN UA (BEAKER) (test code = 463) 0.2 mg/dL 0.2-1 .0 RBC UA (BEAKER) (test code = 519) 3 /HPF WBC UA (BEAKER) (test code = 520) 0 /HPF MUCUS (BEAKER) (test code = 1574) Rare SQUAMOUS EPITHELIAL (BEAKER) (test code = 516) < /HPF HYALINE CASTS (BEAKER) (test code = 514) 1 /LPF AMORPHOUS CRYSTALS (BEAKER) (test code = 1584) Occasional SOURCE(BEAKER) (test code = 7615) Lens Grinder ID - [auto]Lens Grinder ID - techCBC W/PLT COUNT & AUTO DIFFERENTIAL 2020-02-21 07:06:00 Test Item Value Reference Range Comments WHITE BLOOD CELL COUNT (BEAKER) (test code = 9.4 K/ L 3.5 -10.5 775) RED BLOOD CELL COUNT (BEAKER) (test code = 761) 3.23 M/ L 3.93-5.22 HEMOGLOBIN (BEAKER) (test code = 410) 9.8 GM/DL 11.2-15.7 HEMATOCRIT (BEAKER) (test code = 411) 30.2 % 34.1-44.9 MEAN CORPUSCULAR VOLUME (BEAKER) (test code = 93.5 fL 79 .4-94.8 753) MEAN CORPUSCULAR HEMOGLOBIN (BEAKER) (test code 30.3 pg 25.6-32.2 = 751) MEAN CORPUSCULAR HEMOGLOBIN CONC (BEAKER) (test 32.5 GM/DL 32.2-35.5 code = 752) RED CELL DISTRIBUTION WIDTH (BEAKER) (test code 14.0 % 11.7-14.4 = 412) PLATELET COUNT (BEAKER) (test code = 756) 503 K/CU MM 150-45 0 MEAN PLATELET VOLUME (BEAKER) (test code = 754) 8.8 fL 9.4-12.3 NUCLEATED RED BLOOD CELLS (BEAKER) (test code = 0 /100 WBC 0-0 413) NEUTROPHILS RELATIVE PERCENT (BEAKER) (test code 81 % = 429) LYMPHOCYTES RELATIVE PERCENT (BEAKER) (test code 9 % = 430) MONOCYTES RELATIVE PERCENT (BEAKER) (test code = 7 % 431) EOSINOPHILS RELATIVE PERCENT (BEAKER) (test code 2 % = 432) BASOPHILS RELATIVE PERCENT (BEAKER) (test code = 0 % 437) NEUTROPHILS ABSOLUTE COUNT (BEAKER) (test code = 7.57 K/ L 1.56-6.13 670) LYMPHOCYTES ABSOLUTE COUNT (BEAKER) (test code = 0.88 K/ L 1.18-3.74 414) MONOCYTES ABSOLUTE COUNT (BEAKER) (test code = 0.65 K/ L 0 .24-0.36 415) EOSINOPHILS ABSOLUTE COUNT (BEAKER) (test code = 0.18 K/ L 0.04-0.36 416) BASOPHILS ABSOLUTE COUNT (BEAKER) (test code = 0.03 K/ L 0 .01-0.08 417) IMMATURE GRANULOCYTES-RELATIVE PERCENT (BEAKER) 1 % 0-1 (test code = 2801) POCT-GLUCOSE [id number] 17:26:00 Test Item Value Reference Range Comments POC-GLUCOSE METER (BEAKER) 92 mg/dL 70-110 : [facility] [address] (test code = 1538) [facility], [address]: Lens Grinder/Technic melody ID = [id number] for Garrett, Letit ia POCT-GLUCOSE [id number] 12:44:00 Test Item Value Reference Range Comments POC-GLUCOSE METER (BEAKER) 156 mg/dL 70-110 : [facility] [address] [facility] (test code = 1538) [facility], 7 [address]: Lens Grinder/Technic melody ID = [id number] for Eunice Garrettit ia POCT-GLUCOSE [id number] 07:46:00 Test Item Value Reference Range Comments POC-GLUCOSE METER (BEAKER) 112 mg/dL 70-110 : [facility] [address] [facility] (test code = 1538) [facility], [address]: Lens Grinder/Technic melody ID = [id number] for Gerry Letit ia BASIC METABOLIC [id number] 05:23:00 Test Item Value Reference Range Comments SODIUM (BEAKER) (test 137 meq/L 136-145 code = 381) POTASSIUM (BEAKER) (test 3.3 meq/L 3.5-5.1 code = 379) CHLORIDE (BEAKER) (test 104 meq/L 98-107 code = 382) CO2 (BEAKER) (test code = 26 meq/L 22-29 355) BLOOD UREA NITROGEN 10 mg/dL 7-21 (BEAKER) (test code = 354) CREATININE (BEAKER) (test 0.51 mg/dL 0.57-1.25 code = 358) GLUCOSE RANDOM (BEAKER) 104 mg/dL 70-105 (test code = 652) CALCIUM (BEAKER) (test 8.7 mg/dL 8.4-10.2 code = 697) EGFR (BEAKER) (test code 121 mL/min/1.73 sq m ES TIMATED GFR IS NOT = 1092) ACCURATE CREA TININE CLEARANCE IN PRE DICTING GLOMERULAR FILTR ATION RATE. ESTIMATED GFR IS NOT APPLICABLE F OR DIALYSIS PATIENT S. Lens Grinder ID - ALYSON MCBC W/PLT COUNT & AUTO [id number] 05:01:00 Test Item Value Reference Range Comments WHITE BLOOD CELL COUNT (BEAKER) (test code = 10.1 K/ L 3.5 -10.5 775) RED BLOOD CELL COUNT (BEAKER) (test code = 761) 3.22 M/ L 3.93-5.22 HEMOGLOBIN (BEAKER) (test code = 410) 10.1 GM/DL 11.2-15.7 HEMATOCRIT (BEAKER) (test code = 411) 30.0 % 34.1-44.9 MEAN CORPUSCULAR VOLUME (BEAKER) (test code = 93.2 fL 79 .4-94.8 753) MEAN CORPUSCULAR HEMOGLOBIN (BEAKER) (test code 31.4 pg 25.6-32.2 = 751) MEAN CORPUSCULAR HEMOGLOBIN CONC (BEAKER) (test 33.7 GM/DL 32.2-35.5 code = 752) RED CELL DISTRIBUTION WIDTH (BEAKER) (test code 13.7 % 11.7-14.4 = 412) PLATELET COUNT (BEAKER) (test code = 756) 450 K/CU MM 150-45 0 MEAN PLATELET VOLUME (BEAKER) (test code = 754) 9.1 fL 9.4-12.3 NUCLEATED RED BLOOD CELLS (BEAKER) (test code = 0 /100 WBC 0-0 413) NEUTROPHILS RELATIVE PERCENT (BEAKER) (test code 79 % = 429) LYMPHOCYTES RELATIVE PERCENT (BEAKER) (test code 11 % = 430) MONOCYTES RELATIVE PERCENT (BEAKER) (test code = 7 % 431) EOSINOPHILS RELATIVE PERCENT (BEAKER) (test code 2 % = 432) BASOPHILS RELATIVE PERCENT (BEAKER) (test code = 0 % 437) NEUTROPHILS ABSOLUTE COUNT (BEAKER) (test code = 8.00 K/ L 1.56-6.13 670) LYMPHOCYTES ABSOLUTE COUNT (BEAKER) (test code = 1.13 K/ L 1.18-3.74 414) MONOCYTES ABSOLUTE COUNT (BEAKER) (test code = 0.72 K/ L 0 .24-0.36 415) EOSINOPHILS ABSOLUTE COUNT (BEAKER) (test code = 0.17 K/ L 0.04-0.36 416) BASOPHILS ABSOLUTE COUNT (BEAKER) (test code = 0.03 K/ L 0 .01-0.08 417) IMMATURE GRANULOCYTES-RELATIVE PERCENT (BEAKER) 0 % 0-1 (test code = 2801) POCT-GLUCOSE [id number] 21:02:00 Test Item Value Reference Range Comments POC-GLUCOSE METER (BEAKER) 100 mg/dL 70-110 : [facility] [address] (test code = 1538) [facility], [address]: Lens Grinder/Technic melody ID = [id number] for TILA LEI POCT-GLUCOSE [id number] 17:38:00 Test Item Value Reference Range Comments POC-GLUCOSE METER (BEAKER) 100 mg/dL 70-110 : [facility] [address] [facility] (test code = 1538) [facility], [address]: Lens Grinder/Technic melody ID = [id number] for Phil Garrett ia POCT-GLUCOSE [id number] 12:06:00 Test Item Value Reference Range Comments POC-GLUCOSE METER (BEAKER) 131 mg/dL 70-110 : [facility] AT [address] (test code = 1538) [facility], 7 [address]: Lens Grinder/Technic melody ID = [id number] for Phil Garrett ia POCT-GLUCOSE [id number] 08:13:00 Test Item Value Reference Range Comments POC-GLUCOSE METER (BEAKER) 104 mg/dL 70-110 : [facility] AT [address] (test code = 1538) [facility], 7 [address]: Lens Grinder/Technic melody ID = [id number] for Phil Garrett ia BASIC METABOLIC [id number] 05:07:00 Test Item Value Reference Range Comments SODIUM (BEAKER) (test 135 meq/L 136-145 code = 381) POTASSIUM (BEAKER) (test 3.4 meq/L 3.5-5.1 code = 379) CHLORIDE (BEAKER) (test 104 meq/L 98-107 code = 382) CO2 (BEAKER) (test code = 24 meq/L 22-29 355) BLOOD UREA NITROGEN 10 mg/dL 7-21 (BEAKER) (test code = 354) CREATININE (BEAKER) (test 0.54 mg/dL 0.57-1.25 code = 358) GLUCOSE RANDOM (BEAKER) 105 mg/dL 70-105 (test code = 652) CALCIUM (BEAKER) (test 8.4 mg/dL 8.4-10.2 code = 697) EGFR (BEAKER) (test code 113 mL/min/1.73 sq m ES TIMATED GFR IS NOT = 1092) ACCURATE CREA TININE CLEARANCE IN PRE DICTING GLOMERULAR FILTR ATION RATE. ESTIMATED GFR IS NOT APPLICABLE F OR DIALYSIS PATIENT S. Lens Grinder ID - DBCBC W/PLT COUNT & AUTO [id number] 04:26:00 Test Item Value Reference Range Comments WHITE BLOOD CELL COUNT (BEAKER) (test code = 9.1 K/ L 3.5 -10.5 775) RED BLOOD CELL COUNT (BEAKER) (test code = 761) 3.06 M/ L 3.93-5.22 HEMOGLOBIN (BEAKER) (test code = 410) 9.2 GM/DL 11.2-15.7 HEMATOCRIT (BEAKER) (test code = 411) 28.6 % 34.1-44.9 MEAN CORPUSCULAR VOLUME (BEAKER) (test code = 93.5 fL 79 .4-94.8 753) MEAN CORPUSCULAR HEMOGLOBIN (BEAKER) (test code 30.1 pg 25.6-32.2 = 751) MEAN CORPUSCULAR HEMOGLOBIN CONC (BEAKER) (test 32.2 GM/DL 32.2-35.5 code = 752) RED CELL DISTRIBUTION WIDTH (BEAKER) (test code 13.7 % 11.7-14.4 = 412) PLATELET COUNT (BEAKER) (test code = 756) 423 K/CU MM 150-45 0 MEAN PLATELET VOLUME (BEAKER) (test code = 754) 9.0 fL 9.4-12.3 NUCLEATED RED BLOOD CELLS (BEAKER) (test code = 0 /100 WBC 0-0 413) NEUTROPHILS RELATIVE PERCENT (BEAKER) (test code 73 % = 429) LYMPHOCYTES RELATIVE PERCENT (BEAKER) (test code 15 % = 430) MONOCYTES RELATIVE PERCENT (BEAKER) (test code = 9 % 431) EOSINOPHILS RELATIVE PERCENT (BEAKER) (test code 3 % = 432) BASOPHILS RELATIVE PERCENT (BEAKER) (test code = 0 % 437) NEUTROPHILS ABSOLUTE COUNT (BEAKER) (test code = 6.60 K/ L 1.56-6.13 670) LYMPHOCYTES ABSOLUTE COUNT (BEAKER) (test code = 1.32 K/ L 1.18-3.74 414) MONOCYTES ABSOLUTE COUNT (BEAKER) (test code = 0.80 K/ L 0 .24-0.36 415) EOSINOPHILS ABSOLUTE COUNT (BEAKER) (test code = 0.24 K/ L 0.04-0.36 416) BASOPHILS ABSOLUTE COUNT (BEAKER) (test code = 0.03 K/ L 0 .01-0.08 417) IMMATURE GRANULOCYTES-RELATIVE PERCENT (BEAKER) 1 % 0-1 (test code = 2801) POCT-GLUCOSE [id number] 18:19:00 Test Item Value Reference Range Comments POC-GLUCOSE METER (BEAKER) 86 mg/dL 70-110 : [facility] AT [address] (test code = 1538) [facility], 7 30: Lens Grinder/Technic melody ID = [id number] for SULLIVAN, MARILU [place] POCT-GLUCOSE [id number] 11:57:00 Test Item Value Reference Range Comments POC-GLUCOSE METER (BEAKER) 152 mg/dL 70-110 : [facility] AT [address] (test code = 1538) [facility], 7 30: Lens Grinder/Technic melody ID = [id number] for SULLIVAN, MARILU [place] POCT-GLUCOSE [id number] 07:55:00 Test Item Value Reference Range Comments POC-GLUCOSE METER (BEAKER) 124 mg/dL 70-110 : [facility] AT [address] (test code = 1538) [facility], 7 30: Lens Grinder/Technic melody ID = [id number] for SULLIVAN, MARILU IA BASIC METABOLIC [id number] 05:32:00 Test Item Value Reference Range Comments SODIUM (BEAKER) (test 137 meq/L 136-145 code = 381) POTASSIUM (BEAKER) (test 3.6 meq/L 3.5-5.1 code = 379) CHLORIDE (BEAKER) (test 103 meq/L 98-107 code = 382) CO2 (BEAKER) (test code = 27 meq/L 22-29 355) BLOOD UREA NITROGEN 18 mg/dL 7-21 (BEAKER) (test code = 354) CREATININE (BEAKER) (test 0.53 mg/dL 0.57-1.25 code = 358) GLUCOSE RANDOM (BEAKER) 116 mg/dL 70-105 (test code = 652) CALCIUM (BEAKER) (test 8.4 mg/dL 8.4-10.2 code = 697) EGFR (BEAKER) (test code 115 mL/min/1.73 sq m ES TIMATED GFR IS NOT = 1092) ACCURATE CREA TININE CLEARANCE IN PRE DICTING GLOMERULAR FILTR ATION RATE. ESTIMATED GFR IS NOT APPLICABLE F OR DIALYSIS PATIENT S. Lens Grinder ID - PIAYA LCBC W/PLT COUNT & AUTO [id number] 05:21:00 Test Item Value Reference Range Comments WHITE BLOOD CELL COUNT (BEAKER) (test code = 12.3 K/ L 3.5 -10.5 775) RED BLOOD CELL COUNT (BEAKER) (test code = 761) 3.11 M/ L 3.93-5.22 HEMOGLOBIN (BEAKER) (test code = 410) 9.6 GM/DL 11.2-15.7 HEMATOCRIT (BEAKER) (test code = 411) 29.2 % 34.1-44.9 MEAN CORPUSCULAR VOLUME (BEAKER) (test code = 93.9 fL 79 .4-94.8 753) MEAN CORPUSCULAR HEMOGLOBIN (BEAKER) (test code 30.9 pg 25.6-32.2 = 751) MEAN CORPUSCULAR HEMOGLOBIN CONC (BEAKER) (test 32.9 GM/DL 32.2-35.5 code = 752) RED CELL DISTRIBUTION WIDTH (BEAKER) (test code 13.5 % 11.7-14.4 = 412) PLATELET COUNT (BEAKER) (test code = 756) 408 K/CU MM 150-45 0 MEAN PLATELET VOLUME (BEAKER) (test code = 754) 9.2 fL 9.4-12.3 NUCLEATED RED BLOOD CELLS (BEAKER) (test code = 0 /100 WBC 0-0 413) NEUTROPHILS RELATIVE PERCENT (BEAKER) (test code 80 % = 429) LYMPHOCYTES RELATIVE PERCENT (BEAKER) (test code 9 % = 430) MONOCYTES RELATIVE PERCENT (BEAKER) (test code = 8 % 431) EOSINOPHILS RELATIVE PERCENT (BEAKER) (test code 3 % = 432) BASOPHILS RELATIVE PERCENT (BEAKER) (test code = 0 % 437) NEUTROPHILS ABSOLUTE COUNT (BEAKER) (test code = 9.81 K/ L 1.56-6.13 670) LYMPHOCYTES ABSOLUTE COUNT (BEAKER) (test code = 1.10 K/ L 1.18-3.74 414) MONOCYTES ABSOLUTE COUNT (BEAKER) (test code = 0.93 K/ L 0 .24-0.36 415) EOSINOPHILS ABSOLUTE COUNT (BEAKER) (test code = 0.35 K/ L 0.04-0.36 416) BASOPHILS ABSOLUTE COUNT (BEAKER) (test code = 0.02 K/ L 0 .01-0.08 417) IMMATURE GRANULOCYTES-RELATIVE PERCENT (BEAKER) 1 % 0-1 (test code = 2801) POCT-GLUCOSE [id number] 21:22:00 Test Item Value Reference Range Comments POC-GLUCOSE METER (BEAKER) 97 mg/dL 70-110 : [facility] AT [address] (test code = 1538) [facility], [address]: Lens Grinder/Technic melody ID = [id number] for JOEY HARTMAN POCT-GLUCOSE [id number] 17:40:00 Test Item Value Reference Range Comments POC-GLUCOSE METER (BEAKER) 103 mg/dL 70-110 : [facility] AT [address] (test code = 1538) [facility], 7 [address]: Lens Grinder/Technic melody ID = [id number] for ELZBIETA PRICE POCT-GLUCOSE [id number] 14:08:00 Test Item Value Reference Range Comments POC-GLUCOSE METER (BEAKER) 147 mg/dL 70-110 : TAMMY CHARLES AT [address] (test code = 1538) [facility], 7 30: Lens Grinder/Technic melody ID = [id number] for ELEANOR VALE POCT-GLUCOSE [id number] 14:08:00 Test Item Value Reference Range Comments POC-GLUCOSE METER (BEAKER) 127 mg/dL 70-110 : TAMMY CHARLES AT [address] (test code = 1538) [facility], 7 30: Lens Grinder/Technic melody ID = [id number] for Jen Ojeda [id number] 06:29:00 Test Item Value Reference Range Comments PHOSPHORUS (BEAKER) (test code = 604) 3.0 mg/dL 2.3-4.7 Lens Grinder ID - ALYSON [id number] 06:29:00 Test Item Value Reference Range Comments MAGNESIUM (BEAKER) (test code = 627) 1.9 mg/dL 1.6-2.6 Lens Grinder ID - ALYSON MBASIC METABOLIC [id number] 06:29:00 Test Item Value Reference Range Comments SODIUM (BEAKER) (test 135 meq/L 136-145 code = 381) POTASSIUM (BEAKER) (test 3.7 meq/L 3.5-5.1 code = 379) CHLORIDE (BEAKER) (test 102 meq/L 98-107 code = 382) CO2 (BEAKER) (test code = 26 meq/L 22-29 355) BLOOD UREA NITROGEN 13 mg/dL 7-21 (BEAKER) (test code = 354) CREATININE (BEAKER) (test 0.53 mg/dL 0.57-1.25 code = 358) GLUCOSE RANDOM (BEAKER) 104 mg/dL 70-105 (test code = 652) CALCIUM (BEAKER) (test 8.7 mg/dL 8.4-10.2 code = 697) EGFR (BEAKER) (test code 115 mL/min/1.73 sq m ES TIMATED GFR IS NOT = 1092) ACCURATE CREA TININE CLEARANCE IN PRE DICTING GLOMERULAR FILTR ATION RATE. ESTIMATED GFR IS NOT APPLICABLE F OR DIALYSIS PATIENT S. Lens Grinder ID - ALYSON MPOCT-GLUCOSE [id number] 06:23:00 Test Item Value Reference Range Comments POC-GLUCOSE METER (BEAKER) 105 mg/dL 70-110 : TAMMY CHARLES AT [facility] [address] [facility] (test code = 1538) [facility], [address]: Lens Grinder/Technic melody ID = [id number] for KAVIN WEBSTER CBC W/PLT COUNT & AUTO [id number] 05:57:00 Test Item Value Reference Range Comments WHITE BLOOD CELL COUNT (BEAKER) (test code = 14.7 K/ L 3.5 -10.5 775) RED BLOOD CELL COUNT (BEAKER) (test code = 761) 2.88 M/ L 3.93-5.22 HEMOGLOBIN (BEAKER) (test code = 410) 8.8 GM/DL 11.2-15.7 HEMATOCRIT (BEAKER) (test code = 411) 26.8 % 34.1-44.9 MEAN CORPUSCULAR VOLUME (BEAKER) (test code = 93.1 fL 79 .4-94.8 753) MEAN CORPUSCULAR HEMOGLOBIN (BEAKER) (test code 30.6 pg 25.6-32.2 = 751) MEAN CORPUSCULAR HEMOGLOBIN CONC (BEAKER) (test 32.8 GM/DL 32.2-35.5 code = 752) RED CELL DISTRIBUTION WIDTH (BEAKER) (test code 13.5 % 11.7-14.4 = 412) PLATELET COUNT (BEAKER) (test code = 756) 382 K/CU MM 150-45 0 MEAN PLATELET VOLUME (BEAKER) (test code = 754) 9.3 fL 9.4-12.3 NUCLEATED RED BLOOD CELLS (BEAKER) (test code = 0 /100 WBC 0-0 413) NEUTROPHILS RELATIVE PERCENT (BEAKER) (test code 81 % = 429) LYMPHOCYTES RELATIVE PERCENT (BEAKER) (test code 10 % = 430) MONOCYTES RELATIVE PERCENT (BEAKER) (test code = 6 % 431) EOSINOPHILS RELATIVE PERCENT (BEAKER) (test code 2 % = 432) BASOPHILS RELATIVE PERCENT (BEAKER) (test code = 0 % 437) NEUTROPHILS ABSOLUTE COUNT (BEAKER) (test code = 11.98 K/ L 1.56-6.13 670) LYMPHOCYTES ABSOLUTE COUNT (BEAKER) (test code = 1.44 K/ L 1.18-3.74 414) MONOCYTES ABSOLUTE COUNT (BEAKER) (test code = 0.87 K/ L 0 .24-0.36 415) EOSINOPHILS ABSOLUTE COUNT (BEAKER) (test code = 0.28 K/ L 0.04-0.36 416) BASOPHILS ABSOLUTE COUNT (BEAKER) (test code = 0.02 K/ L 0 .01-0.08 417) IMMATURE GRANULOCYTES-RELATIVE PERCENT (BEAKER) 1 % 0-1 (test code = 2801) POCT-GLUCOSE [id number] 23:55:00 Test Item Value Reference Range Comments POC-GLUCOSE METER (BEAKER) 89 mg/dL 70-110 : TAMMY CHARLES AT 58 [address] (test code = 1538) [employer], [address]: Lens Grinder/Technic melody ID = [id number] for ELEANOR VALE POCT-GLUCOSE [id number] 17:09:00 Test Item Value Reference Range Comments POC-GLUCOSE METER (BEAKER) 104 mg/dL 70-110 : TAMMY CHARLES AT [place] [id number] [facility] (test code = 1538) [employer] [facility] [employer], 7 [address]29: Lens Grinder/Technic melody ID = [id number] for CHADWICK ESCOBAR SPUTUM CULTURE + GRAM [id number] 13:27:00 Test Item Value Reference Range Comments CULTURE (BEAKER) (test STAPHYLOCOCCUS AUREUS 4+ Staphylococcus code = 1095) aureus Clindamycin (test code = 10) Erythromycin (test code = 4) Linezolid (test code = 40) Nitrofurantoin (test code = 23) Oxacillin (test code = 14) Rifampin (test code = 43) Tetracycline (test code = 2) Trimethoprim + Sulfamethoxazole (test code = 47) Vancomycin (test code = 13) GRAM STAIN RESULT 1+ White blood cells (BEAKER) (test code = seen 1123) GRAM STAIN RESULT 0-5 epithelial cells (BEAKER) (test code = 180421) GRAM STAIN RESULT 1+ gram positive cocci (BEAKER) (test code = in clusters 652184) 4+ Normal respiratory nola [id number] 10:10:00 Test Item Value Reference Range Comments POTASSIUM (BEAKER) (test code = 379) 4.1 meq/L 3.5-5.1 Lens Grinder ID - [id number] 10:10:00 Test Item Value Reference Range Comments MAGNESIUM (BEAKER) (test code = 627) 2.3 mg/dL 1.6-2.6 Lens Grinder ID - AAHAMIDPOCT-GLUCOSE [id number] 06:02:00 Test Item Value Reference Range Comments POC-GLUCOSE METER (BEAKER) 140 mg/dL 70-110 : [facility] CHARLES AT [facility] [address] [facility] (test code = 1538) [employer] [facility] [employer], 7 [address]: Lens Grinder/Technic melody ID = [id number] for ELEANOR VALE OCCULT BLOOD, [id number] 04:52:00 Test Item Value Reference Range Comments FECAL OCCULT BLOOD (BEAKER) (test code = 618) Positive Ne gative [id number] 04:14:00 Test Item Value Reference Range Comments PHOSPHORUS (BEAKER) (test code = 604) 2.1 mg/dL 2.3-4.7 Lens Grinder ID - [id number] 04:14:00 Test Item Value Reference Range Comments MAGNESIUM (BEAKER) (test code = 627) 2.0 mg/dL 1.6-2.6 Lens Grinder ID - BSBASIC METABOLIC [id number] 04:14:00 Test Item Value Reference Range Comments SODIUM (BEAKER) (test 136 meq/L 136-145 code = 381) POTASSIUM (BEAKER) (test 3.9 meq/L 3.5-5.1 code = 379) CHLORIDE (BEAKER) (test 106 meq/L 98-107 code = 382) CO2 (BEAKER) (test code = 25 meq/L 22-29 355) BLOOD UREA NITROGEN 16 mg/dL 7-21 (BEAKER) (test code = 354) CREATININE (BEAKER) (test 0.55 mg/dL 0.57-1.25 code = 358) GLUCOSE RANDOM (BEAKER) 149 mg/dL 70-105 (test code = 652) CALCIUM (BEAKER) (test 8.2 mg/dL 8.4-10.2 code = 697) EGFR (BEAKER) (test code 111 mL/min/1.73 sq m ES TIMATED GFR IS NOT = 1092) ACCURATE CREA TININE CLEARANCE IN PRE DICTING GLOMERULAR FILTR ATION RATE. ESTIMATED GFR IS NOT APPLICABLE F OR DIALYSIS PATIENT S. Lens Grinder ID - BSCBC W/PLT COUNT & AUTO [id number] 04:14:00 Test Item Value Reference Range Comments WHITE BLOOD CELL COUNT (BEAKER) (test code = 14.3 K/ L 3.5 -10.5 775) RED BLOOD CELL COUNT (BEAKER) (test code = 761) 2.46 M/ L 3.93-5.22 HEMOGLOBIN (BEAKER) (test code = 410) 7.8 GM/DL 11.2-15.7 HEMATOCRIT (BEAKER) (test code = 411) 22.6 % 34.1-44.9 MEAN CORPUSCULAR VOLUME (BEAKER) (test code = 91.9 fL 79 .4-94.8 753) MEAN CORPUSCULAR HEMOGLOBIN (BEAKER) (test code 31.7 pg 25.6-32.2 = 751) MEAN CORPUSCULAR HEMOGLOBIN CONC (BEAKER) (test 34.5 GM/DL 32.2-35.5 code = 752) RED CELL DISTRIBUTION WIDTH (BEAKER) (test code 13.4 % 11.7-14.4 = 412) PLATELET COUNT (BEAKER) (test code = 756) 263 K/CU MM 150-45 0 MEAN PLATELET VOLUME (BEAKER) (test code = 754) 9.5 fL 9.4-12.3 NUCLEATED RED BLOOD CELLS (BEAKER) (test code = 0 /100 WBC 0-0 413) NEUTROPHILS RELATIVE PERCENT (BEAKER) (test code 90 % = 429) LYMPHOCYTES RELATIVE PERCENT (BEAKER) (test code 5 % = 430) MONOCYTES RELATIVE PERCENT (BEAKER) (test code = 3 % 431) EOSINOPHILS RELATIVE PERCENT (BEAKER) (test code 0 % = 432) BASOPHILS RELATIVE PERCENT (BEAKER) (test code = 0 % 437) NEUTROPHILS ABSOLUTE COUNT (BEAKER) (test code = 12.90 K/ L 1.56-6.13 670) LYMPHOCYTES ABSOLUTE COUNT (BEAKER) (test code = 0.73 K/ L 1.18-3.74 414) MONOCYTES ABSOLUTE COUNT (BEAKER) (test code = 0.47 K/ L 0 .24-0.36 415) EOSINOPHILS ABSOLUTE COUNT (BEAKER) (test code = 0.00 K/ L 0.04-0.36 416) BASOPHILS ABSOLUTE COUNT (BEAKER) (test code = 0.01 K/ L 0 .01-0.08 417) IMMATURE GRANULOCYTES-RELATIVE PERCENT (BEAKER) 1 % 0-1 (test code = 2801) [id number] 12:10:00 Test Item Value Reference Range Comments POTASSIUM (BEAKER) (test code = 379) 3.9 meq/L 3.5-5.1 Lens Grinder ID [facility] Serum Potassium level 2 hours after oral potassium replacement completed or 30 min after intravenous potassium replacement. [id number] 12:10:00 Test Item Value Reference Range Comments MAGNESIUM (BEAKER) (test code = 627) 2.2 mg/dL 1.6-2.6 Lens Grinder ID - [facility] Serum Potassium level 2 hours after oral potassium replacement completed or 30 min after intravenous potassium replacement. [id number] 12:10:00 Test Item Value Reference Range Comments PHOSPHORUS (BEAKER) (test code = 604) 2.7 mg/dL 2.3-4.7 Lens Grinder ID [facility] Serum Potassium level 2 hours after oral potassium replacement completed or 30 min after intravenous potassium replacement.SODIUM 2020-02-15 12:10:00 Test Item Value Reference Range Comments SODIUM (BEAKER) (test code = 381) 136 meq/L 136-145 Lens Grinder ID - SANTIAGO Raizasarah Serum Potassium level 2 hours after oral potassium replacement completed or 30 min after intravenous potassium replacement.MRSA [id number] 11:44:00 Test Item Value Reference Range Comments CULTURE (BEAKER) (test code = 1095) No MRSA isolated RAD, CHEST, 1 VIEW, NON [id number] 08:06:00Reason for exam:->ventedShould this be performed at the bedside?->YesFINAL REPORT CLINICAL HISTORY: vented TECHNIQUE: 1 view of the chest. COMPARISON: 02/12/2020 IMPRESSION: The ETT terminates 3.5 cm above the faizan. The right central line is at the cavoatrial junction. The NG tube below the diaphragm. Left lung base consolidation is unchanged, but hazy bilateral perihilar lung opacities appear minimally increased. A trace left effusion is again suspected. The cardiomediastinal silhouette is magnified by technique. Signed: Guerda Blackman MDReport Verified Date/Time: 02/15/2020 08:06:20 Reading Location: [facility] Radiology Reading Room POCT-GLUCOSE [id number] 05:46:00 Test Item Value Reference Range Comments POC-GLUCOSE METER (BEAKER) 152 mg/dL 70-110 : [facility] AT [facility] [address] [facility] (test code = 1538) [employer], [address]: Lens Grinder/Technic melody ID = [id number] for Jen Ojeda CBC W/PLT COUNT & AUTO [id number] 03:49:00 Test Item Value Reference Range Comments WHITE BLOOD CELL COUNT (BEAKER) (test code = 15.6 K/ L 3.5 -10.5 775) RED BLOOD CELL COUNT (BEAKER) (test code = 761) 2.65 M/ L 3.93-5.22 HEMOGLOBIN (BEAKER) (test code = 410) 8.2 GM/DL 11.2-15.7 HEMATOCRIT (BEAKER) (test code = 411) 24.6 % 34.1-44.9 MEAN CORPUSCULAR VOLUME (BEAKER) (test code = 92.8 fL 79 .4-94.8 753) MEAN CORPUSCULAR HEMOGLOBIN (BEAKER) (test code 30.9 pg 25.6-32.2 = 751) MEAN CORPUSCULAR HEMOGLOBIN CONC (BEAKER) (test 33.3 GM/DL 32.2-35.5 code = 752) RED CELL DISTRIBUTION WIDTH (BEAKER) (test code 13.6 % 11.7-14.4 = 412) PLATELET COUNT (BEAKER) (test code = 756) 233 K/CU MM 150-45 0 MEAN PLATELET VOLUME (BEAKER) (test code = 754) 9.2 fL 9.4-12.3 NUCLEATED RED BLOOD CELLS (BEAKER) (test code = 0 /100 WBC 0-0 413) NEUTROPHILS RELATIVE PERCENT (BEAKER) (test code 83 % = 429) LYMPHOCYTES RELATIVE PERCENT (BEAKER) (test code 8 % = 430) MONOCYTES RELATIVE PERCENT (BEAKER) (test code = 6 % 431) EOSINOPHILS RELATIVE PERCENT (BEAKER) (test code 2 % = 432) BASOPHILS RELATIVE PERCENT (BEAKER) (test code = 0 % 437) NEUTROPHILS ABSOLUTE COUNT (BEAKER) (test code = 12.93 K/ L 1.56-6.13 670) LYMPHOCYTES ABSOLUTE COUNT (BEAKER) (test code = 1.21 K/ L 1.18-3.74 414) MONOCYTES ABSOLUTE COUNT (BEAKER) (test code = 0.85 K/ L 0 .24-0.36 415) EOSINOPHILS ABSOLUTE COUNT (BEAKER) (test code = 0.38 K/ L 0.04-0.36 416) BASOPHILS ABSOLUTE COUNT (BEAKER) (test code = 0.02 K/ L 0 .01-0.08 417) IMMATURE GRANULOCYTES-RELATIVE PERCENT (BEAKER) 1 % 0-1 (test code = 2801) [id number] 03:47:00 Test Item Value Reference Range Comments PHOSPHORUS (BEAKER) (test code = 604) 2.1 mg/dL 2.3-4.7 Lens Grinder ID - PIAYA [id number] 03:47:00 Test Item Value Reference Range Comments MAGNESIUM (BEAKER) (test code = 627) 1.9 mg/dL 1.6-2.6 Lens Grinder ID - PIAYA LBASIC METABOLIC [id number] 03:47:00 Test Item Value Reference Range Comments SODIUM (BEAKER) (test 135 meq/L 136-145 code = 381) POTASSIUM (BEAKER) (test 3.3 meq/L 3.5-5.1 code = 379) CHLORIDE (BEAKER) (test 101 meq/L 98-107 code = 382) CO2 (BEAKER) (test code = 27 meq/L 22-29 355) BLOOD UREA NITROGEN 11 mg/dL 7-21 (BEAKER) (test code = 354) CREATININE (BEAKER) (test 0.52 mg/dL 0.57-1.25 code = 358) GLUCOSE RANDOM (BEAKER) 148 mg/dL 70-105 (test code = 652) CALCIUM (BEAKER) (test 8.1 mg/dL 8.4-10.2 code = 697) EGFR (BEAKER) (test code 118 mL/min/1.73 sq m ES TIMATED GFR IS NOT = 1092) ACCURATE CREA TININE CLEARANCE IN PRE DICTING GLOMERULAR FILTR ATION RATE. ESTIMATED GFR IS NOT APPLICABLE F OR DIALYSIS PATIENT S. Lens Grinder ID - PIAYA LBLOOD GAS, [id number] 03:34:00 Test Item Value Reference Range Comments PH ARTERIAL (BEAKER) (test code = 383) 7.49 7.35-7.45 PCO2 ARTERIAL (BEAKER) (test code = 384) 35 mmHg 35-45 PO2 ARTERIAL (BEAKER) (test code = 385) 127 mmHg 80-90 O2 SATURATION ARTERIAL (BEAKER) (test code = 386) 98.8 % 96.0-97.0 HCO3 ARTERIAL (BEAKER) (test code = 388) 26 mmol/L 21-29 BASE EXCESS ARTERIAL (BEAKER) (test code = 387) 3.0 mmol/L -2.0-3.0 PATIENT TEMPERATURE (BEAKER) (test code = 1818) 37.0 C FIO2 (BEAKER) (test code = 1819) 100.0 % VANCOMYCIN LEVEL, [id number] 22:04:00 Test Item Value Reference Range Comments VANCOMYCIN TROUGH (BEAKER) (test code = 522) 7.5 ug/mL 10. 0-20.0 Lens Grinder ID - BSPOCT-GLUCOSE [id number] 18:14:00 Test Item Value Reference Range Comments POC-GLUCOSE METER (BEAKER) 128 mg/dL 70-110 : TAMMY CHARLES AT [address] (test code = 1538) [employer], 7 30: Lens Grinder/Technic melody ID = [id number] for Alta Smith encia POCT-GLUCOSE [id number] 13:24:00 Test Item Value Reference Range Comments POC-GLUCOSE METER (BEAKER) 127 mg/dL 70-110 : TAMMY CHARLES AT [address] (test code = 1538) [employer], 7 30: Lens Grinder/Technic melody ID = [id number] for Smith, Alta encia POCT-GLUCOSE [id number] 06:00:00 Test Item Value Reference Range Comments POC-GLUCOSE METER (BEAKER) 136 mg/dL 70-110 : TAMMY CHARLES AT [address] (test code = 1538) [employer], 7 30: Lens Grinder/Technic melody ID = [id number] for ARELIS FERNANDEZ BASIC METABOLIC [id number] 03:39:00 Test Item Value Reference Range Comments SODIUM (BEAKER) (test 139 meq/L 136-145 code = 381) POTASSIUM (BEAKER) (test 3.5 meq/L 3.5-5.1 code = 379) CHLORIDE (BEAKER) (test 104 meq/L 98-107 code = 382) CO2 (BEAKER) (test code = 29 meq/L 22-29 355) BLOOD UREA NITROGEN 12 mg/dL 7-21 (BEAKER) (test code = 354) CREATININE (BEAKER) (test 0.50 mg/dL 0.57-1.25 code = 358) GLUCOSE RANDOM (BEAKER) 122 mg/dL 70-105 (test code = 652) CALCIUM (BEAKER) (test 7.9 mg/dL 8.4-10.2 code = 697) EGFR (BEAKER) (test code 123 mL/min/1.73 sq m ES TIMATED GFR IS NOT = 1092) ACCURATE CREA TININE CLEARANCE IN PRE DICTING GLOMERULAR FILTR ATION RATE. ESTIMATED GFR IS NOT APPLICABLE F OR DIALYSIS PATIENT S. Lens Grinder ID - PIBRYANNA [id number] 03:34:00 Test Item Value Reference Range Comments PHOSPHORUS (BEAKER) (test code = 604) 2.0 mg/dL 2.3-4.7 Lens Grinder ID - JOHN [id number] 03:34:00 Test Item Value Reference Range Comments MAGNESIUM (BEAKER) (test code = 627) 1.9 mg/dL 1.6-2.6 Lens Grinder ID - JOHN LCBC W/PLT COUNT & AUTO [id number] 03:31:00 Test Item Value Reference Range Comments WHITE BLOOD CELL COUNT (BEAKER) (test code = 11.6 K/ L 3.5 -10.5 775) RED BLOOD CELL COUNT (BEAKER) (test code = 761) 2.44 M/ L 3.93-5.22 HEMOGLOBIN (BEAKER) (test code = 410) 7.7 GM/DL 11.2-15.7 HEMATOCRIT (BEAKER) (test code = 411) 23.0 % 34.1-44.9 MEAN CORPUSCULAR VOLUME (BEAKER) (test code = 94.3 fL 79 .4-94.8 753) MEAN CORPUSCULAR HEMOGLOBIN (BEAKER) (test code 31.6 pg 25.6-32.2 = 751) MEAN CORPUSCULAR HEMOGLOBIN CONC (BEAKER) (test 33.5 GM/DL 32.2-35.5 code = 752) RED CELL DISTRIBUTION WIDTH (BEAKER) (test code 13.7 % 11.7-14.4 = 412) PLATELET COUNT (BEAKER) (test code = 756) 190 K/CU MM 150-45 0 MEAN PLATELET VOLUME (BEAKER) (test code = 754) 9.7 fL 9.4-12.3 NUCLEATED RED BLOOD CELLS (BEAKER) (test code = 0 /100 WBC 0-0 413) NEUTROPHILS RELATIVE PERCENT (BEAKER) (test code 75 % = 429) LYMPHOCYTES RELATIVE PERCENT (BEAKER) (test code 11 % = 430) MONOCYTES RELATIVE PERCENT (BEAKER) (test code = 8 % 431) EOSINOPHILS RELATIVE PERCENT (BEAKER) (test code 5 % = 432) BASOPHILS RELATIVE PERCENT (BEAKER) (test code = 0 % 437) NEUTROPHILS ABSOLUTE COUNT (BEAKER) (test code = 8.64 K/ L 1.56-6.13 670) LYMPHOCYTES ABSOLUTE COUNT (BEAKER) (test code = 1.28 K/ L 1.18-3.74 414) MONOCYTES ABSOLUTE COUNT (BEAKER) (test code = 0.94 K/ L 0 .24-0.36 415) EOSINOPHILS ABSOLUTE COUNT (BEAKER) (test code = 0.53 K/ L 0.04-0.36 416) BASOPHILS ABSOLUTE COUNT (BEAKER) (test code = 0.01 K/ L 0 .01-0.08 417) IMMATURE GRANULOCYTES-RELATIVE PERCENT (BEAKER) 2 % 0-1 (test code = 2801) BLOOD GAS, [id number] 03:19:00 Test Item Value Reference Range Comments PH ARTERIAL (BEAKER) (test code = 383) 7.52 7.35-7.45 PCO2 ARTERIAL (BEAKER) (test code = 384) 38 mmHg 35-45 PO2 ARTERIAL (BEAKER) (test code = 385) 123 mmHg 80-90 O2 SATURATION ARTERIAL (BEAKER) (test code = 386) 98.7 % 96.0-97.0 HCO3 ARTERIAL (BEAKER) (test code = 388) 30 mmol/L 21-29 BASE EXCESS ARTERIAL (BEAKER) (test code = 387) 6.3 mmol/L -2.0-3.0 PATIENT TEMPERATURE (BEAKER) (test code = 1818) 37.3 C FIO2 (BEAKER) (test code = 1819) 30.0 % POCT-GLUCOSE [id number] 03:02:00 Test Item Value Reference Range Comments POC-GLUCOSE METER (BEAKER) 111 mg/dL 70-110 : TAMMY CHARLES AT [facility] [address] [facility] (test code = 1538) [employer], 7 [address]: Lens Grinder/Technic melody ID = [id number] for ARELIS FERNANDEZ AYUSH CT, [id number] 18:46:00FINAL REPORT TECHNIQUE: CT of the chest, abdomen, and pelvis WITH intravenouscontrast and WITHOUT oral contrast. Dose modulation, iterative reconstruction, and/or weight-based ad justment of the mA/kV was utilized to reduce the radiation dose to as low as reasonably achievable. INDICATION: Unlisted Indication - see commentsConcern for malignancy. COMPARISON: Chest CT from 02/11/2020. FINDINGS: LINES/TUBES: A right-sided central venous catheter has its tip in the lower SVC. An e ndotracheal tube has its tip below the clavicles and above the faizan. LUNGS AND AIRWAYS: Bibasilar subsegmental atelectasis.PLEURA: Trace right and small left pleural effusions.HEART AND MEDIASTINUM: The visualized thyroid gland is normal. No significant mediastinal, hilar, or axillary lymphadenopathy. The heart and pericardium are within normal limits. HEPATOBILIARY: There are several bilateral liver cysts which measure up to 3.7 cm in segment V. A questionable hyperenhancing lesion in segment to correspond to the previously seen mass and measures 3.5 cm. The hyperdense material in the gallbladder is most likely vicarious excretion of contrast. No biliary ductal dilatation.SPLEEN: No splenomegaly.PANCREAS: No focal masses or ductal dilatation. ADRENALS: No adrenal nodules.KIDNEYS/URETERS: No hydronephrosis, stones, or masses.PELVIC ORGANS/BLADDER: The bladder is decompressed by a Sanchez catheter. Prior hysterectomy. PERITONEUM/RETROPERITONEUM: No free air or fluid.LYMPH NODES: No lymphadenopathy.VESSELS: Unremarkable. GI TRACT: No distention or wall thickening. NG tube with tip in the gastricantrum. BONES AND SOFT TISSUES: Moderate degenerative disc changes of the lower lumbar spine. IMPRESSION: 1.A mass in segment II measures 2.5 cm and is most likely focal nodular hyperplasia. A MRI of the abdomen with and without Eovist contrast is recommended on a nonemergent basis for further evaluation and to exclude malignancy. 2.Trace right and small left pleural effusions with bibasilar subsegmental atelectasis. 3.No definite intrathoracic malignancy. Signed: Angelica Stokes MDReport Verified Date/Time: 02/13/2020 18:46:40 Reading Location: [address] Body Reading Room , CHEST, WITH [id number] 18:46:00FINAL REPORT TECHNIQUE: CT of the chest, abdomen, and pelvis WITH intravenouscontrast and WITHOUT oral contrast. Dose modulation, iterative reconstruction, and/or weight- based adjustment of the mA/kV was utilized to reduce the radiation dose to as low as reasonably achievable. INDICATION: Unlisted Indication - see commentsConcern for malignancy. COMPARISON: Chest CT from 02/11/2020. FINDINGS: LINES/TUBES: A right-sided central venous catheter has its tip in the lower SVC. An endotracheal tube has its tip below the clavicles and above the faizan. LUNGS AND AIRWAYS: Bibasilar subsegmental atelectasis.PLEURA: Trace right and small left pleural effusions.HEART AND MEDIASTINUM: The visualized thyroid gland is normal. No significant mediastinal, hilar, or axillary lymphadenopathy. The heart and pericardium are within normal limits. HEPATOBILIARY: There are several bilateral liver cysts which measure up to 3.7 cm in segment V. A questionable hyperenhancing lesion in segment to correspond to the previously seen mass and measures 3.5 cm. The hyperdense material in the gallbladder is most likely vicarious excretion of contrast. No biliary ductal dilatation.SPLEEN: No splenomegaly.PANCREAS: No focal masses or ductal dilatation. ADRENALS: No adrenal nodules.KIDNEYS/URETERS: No hydronephrosis, stones, or masses.PELVIC ORGANS/BLADDER: The bladder is decompressed by a Sanchez catheter. Prior hysterectomy. PERITONEUM/RETROPERITONEUM: No free air or fluid.LYMPH NODES: No lymphadenopathy.VESSELS: Unremarkable. GI TRACT: No distention or wall thickening. NG tube with tip in the gastricantrum. BONES AND SOFT TISSUES: Moderate degenerative disc changes of the lower lumbar spine. IMPRESSION: 1.A mass in segment II measures 2.5 cm and is most likely focal nodular hyperplasia. A MRI of the abdomen with and without Eovist contrast is recommended on a nonemergent basis for further evaluation and to exclude malignancy. 2.Trace right and small left pleural effusions with bibasilar subsegmental atelectasis. 3.No definite intrathoracic malignancy. Signed: Angelica Stokes MDRepdomitila Verified Date/Time: 02/13/2020 18:46:40 Reading Location: [facility] C013Y CT Body Reading Room -GLUCOSE [id number] 17:30:00 Test Item Value Reference Range Comments POC-GLUCOSE METER (BEAKER) 115 mg/dL 70-110 : TAMMY CHARLES AT [address] (test code = 1538) [employer] [employer] [facility] [employer], 7 [address]: Lens Grinder/Technic melody ID = [id number] for Alta Smith POCT-GLUCOSE [id number] 12:13:00 Test Item Value Reference Range Comments POC-GLUCOSE METER (BEAKER) 114 mg/dL 70-110 : TAMMY CHARLES AT [facility] [address] [facility] (test code = 1538) [employer] [facility] [employer], 7 [address]: Lens Grinder/Technic melody ID = [id number] for Alta Smith encia BLOOD [id number] 09:00:00 Test Item Value Reference Range Comments CULTURE (BEAKER) (test code = 1095) No growth in 5 days BLOOD [id number] 09:00:00 Test Item Value Reference Range Comments CULTURE (BEAKER) (test code = 1095) No growth in 5 days POCT-GLUCOSE [id number] 06:14:00 Test Item Value Reference Range Comments POC-GLUCOSE METER (BEAKER) 150 mg/dL 70-110 : TAMMY CHARLES AT [facility] [address] [facility] (test code = 1538) [employer], 7 [address]: Lens Grinder/Technic melody ID = [id number] for ARELIS FERNANDEZ [id number] 04:34:00 Test Item Value Reference Range Comments PHOSPHORUS (BEAKER) (test code = 604) 2.2 mg/dL 2.3-4.7 Lens Grinder ID - [id number] 04:34:00 Test Item Value Reference Range Comments MAGNESIUM (BEAKER) (test code = 627) 2.0 mg/dL 1.6-2.6 Lens Grinder ID - LMBASIC METABOLIC [id number] 04:34:00 Test Item Value Reference Range Comments SODIUM (BEAKER) (test 138 meq/L 136-145 code = 381) POTASSIUM (BEAKER) (test 3.4 meq/L 3.5-5.1 code = 379) CHLORIDE (BEAKER) (test 106 meq/L 98-107 code = 382) CO2 (BEAKER) (test code = 29 meq/L 22-29 355) BLOOD UREA NITROGEN 19 mg/dL 7-21 (BEAKER) (test code = 354) CREATININE (BEAKER) (test 0.54 mg/dL 0.57-1.25 code = 358) GLUCOSE RANDOM (BEAKER) 129 mg/dL 70-105 (test code = 652) CALCIUM (BEAKER) (test 8.2 mg/dL 8.4-10.2 code = 697) EGFR (BEAKER) (test code 113 mL/min/1.73 sq m ES TIMATED GFR IS NOT = 1092) ACCURATE CREA TININE CLEARANCE IN PRE DICTING GLOMERULAR FILTR ATION RATE. ESTIMATED GFR IS NOT APPLICABLE F OR DIALYSIS PATIENT S. Lens Grinder ID - LMBLOOD GAS, [id number] 04:07:00 Test Item Value Reference Range Comments PH ARTERIAL (BEAKER) (test code = 383) 7.47 7.35-7.45 PCO2 ARTERIAL (BEAKER) (test code = 384) 42 mmHg 35-45 PO2 ARTERIAL (BEAKER) (test code = 385) 204 mmHg 80-90 O2 SATURATION ARTERIAL (BEAKER) (test code = 386) 99.4 % 96.0-97.0 HCO3 ARTERIAL (BEAKER) (test code = 388) 30 mmol/L 21-29 BASE EXCESS ARTERIAL (BEAKER) (test code = 387) 5.5 mmol/L -2.0-3.0 PATIENT TEMPERATURE (BEAKER) (test code = 1818) 37.1 C FIO2 (BEAKER) (test code = 1819) 60.0 % CBC W/PLT COUNT & AUTO [id number] 04:06:00 Test Item Value Reference Range Comments WHITE BLOOD CELL COUNT (BEAKER) (test code = 14.0 K/ L 3.5 -10.5 775) RED BLOOD CELL COUNT (BEAKER) (test code = 761) 2.65 M/ L 3.93-5.22 HEMOGLOBIN (BEAKER) (test code = 410) 8.2 GM/DL 11.2-15.7 HEMATOCRIT (BEAKER) (test code = 411) 25.2 % 34.1-44.9 MEAN CORPUSCULAR VOLUME (BEAKER) (test code = 95.1 fL 79 .4-94.8 753) MEAN CORPUSCULAR HEMOGLOBIN (BEAKER) (test code 30.9 pg 25.6-32.2 = 751) MEAN CORPUSCULAR HEMOGLOBIN CONC (BEAKER) (test 32.5 GM/DL 32.2-35.5 code = 752) RED CELL DISTRIBUTION WIDTH (BEAKER) (test code 13.9 % 11.7-14.4 = 412) PLATELET COUNT (BEAKER) (test code = 756) 198 K/CU MM 150-45 0 MEAN PLATELET VOLUME (BEAKER) (test code = 754) 9.5 fL 9.4-12.3 NUCLEATED RED BLOOD CELLS (BEAKER) (test code = 0 /100 WBC 0-0 413) NEUTROPHILS RELATIVE PERCENT (BEAKER) (test code 81 % = 429) LYMPHOCYTES RELATIVE PERCENT (BEAKER) (test code 8 % = 430) MONOCYTES RELATIVE PERCENT (BEAKER) (test code = 8 % 431) EOSINOPHILS RELATIVE PERCENT (BEAKER) (test code 2 % = 432) BASOPHILS RELATIVE PERCENT (BEAKER) (test code = 0 % 437) NEUTROPHILS ABSOLUTE COUNT (BEAKER) (test code = 11.33 K/ L 1.56-6.13 670) LYMPHOCYTES ABSOLUTE COUNT (BEAKER) (test code = 1.17 K/ L 1.18-3.74 414) MONOCYTES ABSOLUTE COUNT (BEAKER) (test code = 1.14 K/ L 0 .24-0.36 415) EOSINOPHILS ABSOLUTE COUNT (BEAKER) (test code = 0.24 K/ L 0.04-0.36 416) BASOPHILS ABSOLUTE COUNT (BEAKER) (test code = 0.01 K/ L 0 .01-0.08 417) IMMATURE GRANULOCYTES-RELATIVE PERCENT (BEAKER) 1 % 0-1 (test code = 2801) POCT-GLUCOSE [id number] 00:15:00 Test Item Value Reference Range Comments POC-GLUCOSE METER (BEAKER) 106 mg/dL 70-110 : [facility] [address] [facility] (test code = 1538) [employer], [address]30: Lens Grinder/Technic melody ID = [id number] for ARELIS FERNANDEZ [id number] 17:43:00 Test Item Value Reference Range Comments MAGNESIUM (BEAKER) (test code 2.2 mg/dL 1.6-2.6 Sp ecimen moderately hemolyzed = 627) Lens Grinder ID - [id number] 17:43:00 Test Item Value Reference Range Comments POTASSIUM (BEAKER) (test code 4.2 meq/L 3.5-5.1 Sp ecimen moderately hemolyzed = 379) Lens Grinder ID - DBPOCT-GLUCOSE [id number] 17:24:00 Test Item Value Reference Range Comments POC-GLUCOSE METER (BEAKER) 119 mg/dL 70-110 : [facility] [address] (test code = 1538) [place], [address]: Lens Grinder/Technic melody ID = [id number] for Jayshree Orellana BLOOD GAS, [id number] 17:24:00 Test Item Value Reference Range Comments PH ARTERIAL (BEAKER) (test code = 383) 7.44 7.35-7.45 PCO2 ARTERIAL (BEAKER) (test code = 384) 45 mmHg 35-45 PO2 ARTERIAL (BEAKER) (test code = 385) 166 mmHg 80-90 O2 SATURATION ARTERIAL (BEAKER) (test code = 386) 99.2 % 96.0-97.0 HCO3 ARTERIAL (BEAKER) (test code = 388) 30 mmol/L 21-29 BASE EXCESS ARTERIAL (BEAKER) (test code = 387) 5.1 mmol/L -2.0-3.0 PATIENT TEMPERATURE (BEAKER) (test code = 1818) 36.9 C FIO2 (BEAKER) (test code = 1819) 60.0 % CALCIUM, [id number] 17:24:00 Test Item Value Reference Range Comments CALCIUM IONIZED (BEAKER) (test code = 698) 1.11 mmol/L 1.12- 1.27 PH, BLOOD (BEAKER) (test code = 1810) 7.44 Check serum Ionized Calcium level after 4 hours after IV Calcium replacement. RAD, CHEST, 1 VIEW, NON [id number] 16:52:00Reason for exam:->emergent intubationShould this be performed at the bedside?->YesFINAL REPORT Chest, 1 view. History: Intubation. Comparison: 02/11/2020. Impres raeann: Endotracheal tube identified with distal tip terminating approximately 3.9 cm above the faizan. Right subclavian central venous catheter identified in stable position. Enteric tube noted coursing below the diaphragm. Left basilar opacities noted suggestive of atelectasis and/or small effusion. There is decreased prominence of the central pulmonary vasculature. There is no evidence for large focal consolidation or pneumothorax. The cardiomediastinal silhouette is stable in appearance. No acuteosseous abnormalities identified. Signed: Maxx Sanchez MDReport Verified Date/Time: 02/12/2020 16:52:09 Reading Location: [facility] B1 C013W Consult Reading Room POCT-GLUCOSE [id number] 13:09:00 Test Item Value Reference Range Comments POC-GLUCOSE METER (BEAKER) 131 mg/dL 70-110 : [facility] [address] [facility] (test code = 1538) [place], [address]: Lens Grinder/Technic melody ID = [id number] for Jayshree Orellana julia CT, BRAIN, WITHOUT [id number] 08:13:00FINAL REPORT CT, BRAIN, WITHOUT CONTRAST CLINICAL INDICATION: Stroke, followup COMPARISON: February 09, 2020 TECHNIQUE: Noncontrast axial CT imaging of the brain and skull. DOSEREDUCTION: Dose modulation, iterative reconstruction, and/or weight-based adjustment of the mA/kV was utilized to reduce the radiation dose to as low as reasonably achievable. FINDINGS: Right frontal approach ventricular catheter terminates near the foramen of Monro. Intraventricular hematoma layeringwithin the occipital horns of the lateral ventricles is now isodense but otherwise not significantlychanged. No hydrocephalus. There is expected evolution of a small intraparenchymal hematoma measuring 1.9 x 2.2 x 2.3 cm along the trajectory of the ventricular catheter within the right frontal lobe. Degree of surrounding edema is slightly increased in the interim. Small bilateral tentorial subdural hematomas are unchanged. There is unchanged appearance of subarachnoid blood products within the bilateral parietal vertex sulci. Streak artifact from left PICA aneurysmal coils minimally limits evaluati on of the posterior fossa, which is otherwise grossly unchanged with mild persistent effacement of the fourth ventricle. Orbits are within normal limits. No obstructive paranasal sinus disease. Right NG tube. IMPRESSION: No significant interval change. 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 Right frontal approach ventricular catheter in place. No hydrocephalus. Signed: Alexus Marroquin MDReport Verified Date/Time: 02/12/2020 08:13:46 Reading Location: [facility] B1 C013V Neuro Reading Room BLOOD GAS, [id number] 07:04:00 Test Item Value Reference Range Comments PH ARTERIAL (BEAKER) (test code = 383) 7.45 7.35-7.45 PCO2 ARTERIAL (BEAKER) (test code = 384) 42 mmHg 35-45 PO2 ARTERIAL (BEAKER) (test code = 385) 195 mmHg 80-90 O2 SATURATION ARTERIAL (BEAKER) (test code = 386) 99.4 % 96.0-97.0 HCO3 ARTERIAL (BEAKER) (test code = 388) 29 mmol/L 21-29 BASE EXCESS ARTERIAL (BEAKER) (test code = 387) 4.3 mmol/L -2.0-3.0 PATIENT TEMPERATURE (BEAKER) (test code = 1818) 37.2 C FIO2 (BEAKER) (test code = 1819) 28.0 % CBC W/PLT COUNT & AUTO [id number] 05:00:00 Test Item Value Reference Range Comments WHITE BLOOD CELL COUNT (BEAKER) (test code = 13.7 K/ L 3.5 -10.5 775) RED BLOOD CELL COUNT (BEAKER) (test code = 761) 2.96 M/ L 3.93-5.22 HEMOGLOBIN (BEAKER) (test code = 410) 9.2 GM/DL 11.2-15.7 HEMATOCRIT (BEAKER) (test code = 411) 27.7 % 34.1-44.9 MEAN CORPUSCULAR VOLUME (BEAKER) (test code = 93.6 fL 79 .4-94.8 753) MEAN CORPUSCULAR HEMOGLOBIN (BEAKER) (test code 31.1 pg 25.6-32.2 = 751) MEAN CORPUSCULAR HEMOGLOBIN CONC (BEAKER) (test 33.2 GM/DL 32.2-35.5 code = 752) RED CELL DISTRIBUTION WIDTH (BEAKER) (test code 14.0 % 11.7-14.4 = 412) PLATELET COUNT (BEAKER) (test code = 756) 209 K/CU MM 150-45 0 MEAN PLATELET VOLUME (BEAKER) (test code = 754) 9.8 fL 9.4-12.3 NUCLEATED RED BLOOD CELLS (BEAKER) (test code = 0 /100 WBC 0-0 413) NEUTROPHILS RELATIVE PERCENT (BEAKER) (test code 84 % = 429) LYMPHOCYTES RELATIVE PERCENT (BEAKER) (test code 8 % = 430) MONOCYTES RELATIVE PERCENT (BEAKER) (test code = 7 % 431) EOSINOPHILS RELATIVE PERCENT (BEAKER) (test code 0 % = 432) BASOPHILS RELATIVE PERCENT (BEAKER) (test code = 0 % 437) NEUTROPHILS ABSOLUTE COUNT (BEAKER) (test code = 11.49 K/ L 1.56-6.13 670) LYMPHOCYTES ABSOLUTE COUNT (BEAKER) (test code = 1.03 K/ L 1.18-3.74 414) MONOCYTES ABSOLUTE COUNT (BEAKER) (test code = 0.98 K/ L 0 .24-0.36 415) EOSINOPHILS ABSOLUTE COUNT (BEAKER) (test code = 0.01 K/ L 0.04-0.36 416) BASOPHILS ABSOLUTE COUNT (BEAKER) (test code = 0.02 K/ L 0 .01-0.08 417) IMMATURE GRANULOCYTES-RELATIVE PERCENT (BEAKER) 1 % 0-1 (test code = 2801) [id number] 04:33:00 Test Item Value Reference Range Comments PHOSPHORUS (BEAKER) (test code = 604) 3.1 mg/dL 2.3-4.7 Lens Grinder ID - CHRISTOPHER [id number] 04:33:00 Test Item Value Reference Range Comments MAGNESIUM (BEAKER) (test code = 627) 2.1 mg/dL 1.6-2.6 Lens Grinder ID - CHRISTOPHER WBASIC METABOLIC [id number] 04:33:00 Test Item Value Reference Range Comments SODIUM (BEAKER) (test 139 meq/L 136-145 code = 381) POTASSIUM (BEAKER) (test 4.0 meq/L 3.5-5.1 code = 379) CHLORIDE (BEAKER) (test 105 meq/L 98-107 code = 382) CO2 (BEAKER) (test code = 28 meq/L 22-29 355) BLOOD UREA NITROGEN 20 mg/dL 7-21 (BEAKER) (test code = 354) CREATININE (BEAKER) (test 0.55 mg/dL 0.57-1.25 code = 358) GLUCOSE RANDOM (BEAKER) 118 mg/dL 70-105 (test code = 652) CALCIUM (BEAKER) (test 8.5 mg/dL 8.4-10.2 code = 697) EGFR (BEAKER) (test code 111 mL/min/1.73 sq m ES TIMATED GFR IS NOT = 1092) ACCURATE CREA TININE CLEARANCE IN PRE DICTING GLOMERULAR FILTR ATION RATE. ESTIMATED GFR IS NOT APPLICABLE F OR DIALYSIS PATIENT S. Lens Grinder ID - CHRISTOPHER WPOCT-GLUCOSE [id number] 00:42:00 Test Item Value Reference Range Comments POC-GLUCOSE METER (BEAKER) 117 mg/dL 70-110 : [facility] [address] [facility] (test code = 1538) [facility], [address]: Lens Grinder/Technic melody ID = [id number] for Tony SAAVEDRA POCT-GLUCOSE [id number] 18:23:00 Test Item Value Reference Range Comments POC-GLUCOSE METER (BEAKER) 115 mg/dL 70-110 : [facility] [address] [facility] (test code = 1538) [facility], [address]: Lens Grinder/Technic melody ID = [id number] for DONALDO CARTAGENA BASIC METABOLIC [id number] 18:09:00 Test Item Value Reference Range Comments SODIUM (BEAKER) (test 137 meq/L 136-145 code = 381) POTASSIUM (BEAKER) (test 4.2 meq/L 3.5-5.1 Specime n markedly code = 379) hemolyzed CHLORIDE (BEAKER) (test 104 meq/L 98-107 code = 382) CO2 (BEAKER) (test code = 24 meq/L 22-29 355) BLOOD UREA NITROGEN 17 mg/dL 7-21 (BEAKER) (test code = 354) CREATININE (BEAKER) (test 0.51 mg/dL 0.57-1.25 Specim en markedly code = 358) hemolyzed GLUCOSE RANDOM (BEAKER) 128 mg/dL 70-105 (test code = 652) CALCIUM (BEAKER) (test 8.5 mg/dL 8.4-10.2 code = 697) EGFR (BEAKER) (test code 121 mL/min/1.73 sq m ES TIMATED GFR IS NOT = 1092) ACCURATE CREA TININE CLEARANCE IN PRE DICTING GLOMERULAR FILTR ATION RATE. ESTIMATED GFR IS NOT APPLICABLE F OR DIALYSIS PATIENT S. Lens Grinder ID - DBCT, CHEST WITH IV CONTRAST- PE TEST [id number] 17:33:[address] Chest PE Protocol dated 02/11/2020 Clinical information: Shortness of breath Technique: This exam was performed according to our departmental dose-optimization program, which includes automated exposure control, adjustment of the mA and/or kV according to patient size and/or use of interactive reconstruction technique. Precontrast axial images were obtained at pulmonary trunk level for the purpose of monitoring subsequent IV contrast. Postcontrast axial imagesof the chest were obtained from above the arch level to the lower chest at maximum enhancement of pulmonary artery. Delayed axial images of the entire chest were obtained subsequently. Coronal and sagittal reformations of the pulmonary arteries were performed. Comment: Heart is normal in size. Greatervessels are unremarkable. No filling detect is noted in the pulmonary trunk or pulmonary arteries. No adenopathy is noted in the mediastinum or perihilar region. Trachea and mainstem bronchi are patent. There is small left pleural effusion. Subsegmental atelectasis is seen in both lung bases. The restof the lungs are clear. No nodular, mass lesion, or airspace disease is seen. Visualized upper abdomen demonstrates several cysts in the liver. A 2.1 x 3.7 cm enhancing mass is seen in the segment 2 ofthe liver. Impression: 1. No pulmonary thromboembolism.2. Liver cysts and enhancing lesion in the segment 2 of the liver may represent focal nodular hyperplasia, hepatocellular carcinoma or hepatic adenoma. Recommend follow-up with CT or MRI of the abdomen with liver protocol.3. Small left pleural effusion with the bibasilar subsegmental atelectasis. Signed: Jing Olson MDReport Verified Date/Time: 02/11/2020 17:33:40 Reading Location: [address] Consult Reading Room Electronically signedby: JING OLSON M.D. on 02/11/2020 05:33 PMRAD, CHEST, 1 VIEW, NON [id number] 16:49:00Reason for exam:->SOB, pnaShould this be performed at the bedside?->YesFINAL REPORT Chest one view. Clinical history: SOB, pna Comparison: 02/11/2020 Discussion: A frontal chest is provided. Cardiomediastinal contours are unchanged. Lines and tubes are in stable position. There is slightly increased vascular congestion and pulmonary edema. No definite new consolidation. Mild atelectasis/consolidation is suspected at the lung bases. No pneumothorax, or significant pleural effusion. Signed: Renny Pedroza MDReport Verified Date/Time: 02/11/2020 16:49:02 Reading Location: [place] [id number] Ortho Consult Reading Room POCT-GLUCOSE [id number] 14:53:00 Test Item Value Reference Range Comments POC-GLUCOSE METER (BEAKER) 149 mg/dL 70-110 : [facility] [address] [facility] (test code = 1538) [facility], [address]: Lens Grinder/Technic melody ID = [id number] for DONALDO CARTAGENA BLOOD GAS, [id number] 13:17:00 Test Item Value Reference Range Comments PH ARTERIAL (BEAKER) (test code = 383) 7.58 7.35-7.45 PCO2 ARTERIAL (BEAKER) (test code = 384) 28 mmHg 35-45 PO2 ARTERIAL (BEAKER) (test code = 385) 122 mmHg 80-90 O2 SATURATION ARTERIAL (BEAKER) (test code = 386) 98.9 % 96.0-97.0 HCO3 ARTERIAL (BEAKER) (test code = 388) 25 mmol/L 21-29 BASE EXCESS ARTERIAL (BEAKER) (test code = 387) 3.8 mmol/L -2.0-3.0 PATIENT TEMPERATURE (BEAKER) (test code = 1818) 36.4 C FIO2 (BEAKER) (test code = 1819) 28.0 % MARIBEL, EMBOLIZATION, [id number] 11:48:00Reason for exam:->ruptured left PICA aneurysmReason for exam:->Dr. Edy HartmanAnesthesia:- >GeneralFINAL REPORT DATE: February 06, 2020 ATTENDING: Edy Hartman MD WOOD CARVER HAND: Homero Underwood M.D. 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 Diagnostic A ngiogram2. Coil embolization of left PICA aneurysm ANESTHESIOLOGIST: [place] ANESTHESIA: General COMPLICATIONS: None ESTIMATED BLOOD LOSS: Less than 15ml VESSELS STUDIED:*Right innominate carotid artery x 1*Right internal carotid artery x 2*Left internal carotid artery x 2*Left subclavian artery x 1*Left vertebral artery x >8* -Rotational 3D DSA x 1 MATERIALS EMPLOYED:1. 6 Hungarian radial short sheath 2. 5 Hungarian Marquez 2 diagnostic catheter3. Terumo 0.035 LT glidewire4. Elder Catalyst 5 distal access catheter5. SL 10 microcatheter - 150cm6. Elder target 360 Karolyn coil - 3mm x 4cm7. [place] target 360 Karolyn coil - 2mm x 4cm8. [place] target 360 Karolyn coil - 1mm x 2cm9. Elder target 360 Karolyn coil - 1mm x 2cm10. [place] target 360 Karolyn coil - 1mm x 2cm11. [place] target 360 Karolyn coil - 1mm x 2cm12. TR band closure device INDICATIONS:The patient is a 64-year-old woman who presented with sudden onset headache and neck pain followed by loss of consciousness yesterday. She was found to have diffuse subarachnoid hemorrhage including the posterior fossa cisterns, with a CT angiogramdemonstrating a left posterior inferior cerebellar artery aneurysm. An EVD was placed and the morning of the procedure the patient would open her eyes and follow simple commands but was sleepy. She is brought today for diagnostic cerebral angiogram and embolization of the aneurysm. While the patient was being prepared for the procedure by the team, the indications for the procedure as well as the risks, benefits and alternatives to the procedure were discussed with the patient's who providedverbal consent on behalf of of the patient. The risks discussed included but were not limited to stroke, intracranial hemorrhage, injury to the cervical femoral or aortic vessels, contrast reaction, kidney to toxicity, groin hematoma, weakness paralysis and even . They demonstrated understanding of the risk benefit profile and agreed to proceed. DIAGNOSTIC AND INTERVENTIONAL PROCEDURE:After appropriate consent was obtained, the patient was brought to the angiographic suite and cardiopulmonary monitoring was placed. The anesthesia team performed general anesthesia. A timeout was performed. Both groins were prepped and draped in the usual sterile fashion. In addition the left wrist was preppedand draped. The left radial arterial line in the proximal radial artery had been placed by the neuroICU team. This catheter was exchanged for a 6 Hungarian slender radial sheath over a wire. A radial cocktail consisting of heparin, verapamil, and lidocaine was infused through the sheath. The sheath was then maintained on heparinized saline flush throughout the remainder of the procedure. Using coaxial technique, a preflushed 5 Hungarian 125cm Marquez two catheter on constant heparinized saline flush was advanced over a Glidewire into the descending aorta, the Glidewire was removed and the catheter was back bled and flushed in the usual fashion. The Marquez catheter was then reformatted. With the aid of roadmapping, digital fluoroscopy, and careful Glidewire manipulation, the right internal carotid artery, right common carotid artery, left common carotid artery, and left subclavian arteries were selectively catheterized. Upon each successive catheterization, digital subtraction angiography using the a ppropriate rate and volume of contrast in multiple projections was performed. A Catalyst five distal access catheter was advanced over the Glidewire into the left V2 segment. Antegrade flow but delayed washout of contrast was noted on the initial runs via the CAT 5; therefore, Heparin 3000 units of heparin was administered to prevent thrombus formation during coiling. Subsequently, under roadmap guidance, the distal access catheter was advanced over the microcatheter to approximately the level of C2. 3-D rotational angiogram was performed and processed on an independent workstation. This rotational intracranial was used to obtain specific oblique view for 2-dimensional angiography for visualization of the aneurysm, vertebral artery and posterior inferior cerebellar arteries. An SL 10 microcatheter was advanced within this over a Synchro standard microwire. The microcatheter was then positioned within the sac of the aneurysm. At this time multiple coils were used to embolize the aneurysm. Subsequently multiple other coils (5 coils) were deployed into the aneurysm to increase the packing density and reduce filling of the aneurysm. After each coil was deployed an angiogram was performed to confirm that the there was no coil protrusion into the parent artery. At the end of coil embolization DSAof the left vertebral artery showed no coil protrusion of the parent artery and no filling of the ane urysm. At this point it was decided to deploy the stent to keep the coils within the aneurysm sac. Final angiography within the coil in view demonstrated satisfactory occlusion of the aneurysm with preservation of the parent and branch arteries. Whole head AP and lateral angiography was performed and confirmed no untoward complications. Angiography was additionally performed in the proximal vertebral artery, which demonstrated no injury. The catheter was removed. The sheath was removed and hemostasis was achieved with a TR band over the wrist. The patient was transferred to the neurological intensive care unit to be monitored as per protocol. FINDINGS: RIGHT INNOMINATE ARTERY (ROADMAP - PA, LATERAL CHEST)The innominate artery as well as the origins of the right subclavian and right common carotid artery have normal course and appearance. The origins of the right internal and external carotid arteries are widely patent without evidence of ulceration or stenosis. RIGHT INTERNAL CAROTID ARTERY (DSA, PA, LATERAL, MAGNIFIED OBLIQUE x2)Normal distal cervical, petrous, cavernous and supraclinoid internal carotid artery with physiological filling of the MCA and PENNY branches. There is a small infundibulum at the origin of the right posterior communicating artery, which is also correspondingly small. Capillary phase and venous phase are unremarkable. No aneurysms or other vascular lesions are seen. There is no significant atherosclerosis or stenosis. The venous phase demonstrates patent transverse and sigmoid sinuses. LEFT INTERNAL CAROTID ARTERY (DSA, PA, LATERAL, MAGNIFIED OBLIQUE x4)Normal distal cervical, petrous, cavernous and supraclinoid internal carotid artery with physiological filling of the MCA and PENNY branches. There is a small medially/inferiorly projecting aneurysm which appears sully proximal to the origin of the ophthalmic artery. This suggests that the aneurysm is based in the distal cavernous or clinoidal segments. It has a base of approximately 4 mm in maximal height of 3.5 mm. It does not have any irregular features. There is a large posterior communicating artery. Capillary phase and venous phase are unremarkable. No aneurysms or other vascular lesions are seen. There isno significant atherosclerosis or stenosis. The venous phase demonstrates patent transverse sinuses.The distal branches of the external carotid artery have a normal course and appearance with physiological filling. LEFT SUBCLAVIAN ARTERY (DSA, PA, LATERAL X 2)There is normal course and caliber of thesubclavian artery with physiological filling of its distal branches. There is a patent left vertebral artery origin, and visualized origins of the internal mamillary artery, thyrocervical and costocervical trunks. There is a small tortuous loop at the proximal (v1) vertebral artery. LEFT VERTEBRAL ARTERY (DSA, PA, LATERAL, MAGNIFIED OBLIQUE X 16)Unremarkable distal cervical and intracranial vertebral artery with physiological filling of the basilar artery and its distal branches. There is normal filling of the ipsilateral AICA's, SCAs and program director scouting. There is an aneurysm of the p1 segment of the posterior inferior communicating artery (PICA) that with its neck based completely on the PICA without involving vertebral artery. The aneurysm has a dome height of 4.3 mm a maximal width of 2.7 mm. The aneurysm partially involves the PICA itself with a bulbous anterolateral projection of the p1 PICA segment.The fingerlike projection of the dome suggests a rupture point at its tip and is consistent with thesource of subarachnoid hemorrhage. Post-intervention, the irregular upward projecting dome of the ane urysm is completely obliterated and the wide base which incorporates the PICA itself is widely patent. The capillary phase and venous phase are unremarkable. IMPRESSION1. 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 2. 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 3. Successful coil embolization of the left PICA aneurysm dome with expected residual wide necked base incorporating the parent vessel. FACULTY ATTESTATION: I, Edy Hartman M.D., was present for the entirety of the procedure. I performed or directly supervised all aspects of the procedure. I performed all critical aspects of the case. I interpreted the images and reported the results. Signed: Edy Hartman MDReport Verified Date/Time: 02/11/2020 11:48:31 Reading Location[facility] POCT-GLUCOSE [id number] 09:14:00 Test Item Value Reference Range Comments POC-GLUCOSE METER (BEAKER) 147 mg/dL 70-110 : [facility] [address] [facility] (test code = 1538) [facility], [address]: Lens Grinder/Technic melody ID = [id number] for LIAM HARTMAN POCT-GLUCOSE [id number] 09:14:00 Test Item Value Reference Range Comments POC-GLUCOSE METER (BEAKER) 146 mg/dL 70-110 : [facility] [address] (test code = 1538) [facility], [address]: Lens Grinder/Technic melody ID = [id number] for LIAM HARTMAN POCT-GLUCOSE [id number] 09:14:00 Test Item Value Reference Range Comments POC-GLUCOSE METER (BEAKER) 107 mg/dL 70-110 : [facility] [address] (test code = 1538) [facility], [address]: Lens Grinder/Technic melody ID = [id number] for JESSICA, TIKEY A POCT-GLUCOSE [id number] 09:14:00 Test Item Value Reference Range Comments POC-GLUCOSE METER (BEAKER) 134 mg/dL 70-110 : [facility] [address] (test code = 1538) [facility], [address]: Lens Grinder/Technic melody ID = [id number] for JESSICA, TIKEY A POCT-GLUCOSE [id number] 09:14:00 Test Item Value Reference Range Comments POC-GLUCOSE METER (BEAKER) 135 mg/dL 70-110 : [facility] [address] (test code = 1538) [facility], [address]: Lens Grinder/Technic melody ID = [id number] for ARELIS FERNANDEZ POCT-GLUCOSE [id number] 09:14:00 Test Item Value Reference Range Comments POC-GLUCOSE METER (BEAKER) 141 mg/dL 70-110 : Not ified RN/MD: TESTED AT (test code = 1538) [address], [id number]: Lens Grinder/ Transition Lead ID = [id number] for JOSE JACOB TEJ POCT-GLUCOSE [id number] 09:14:00 Test Item Value Reference Range Comments POC-GLUCOSE METER (BEAKER) 146 mg/dL 70-110 : [facility] AT [address] (test code = 1538) [facility], [address]: Lens Grinder/Technic melody ID = [id number] for JESSICA, TIKEY A POCT-GLUCOSE [id number] 09:14:00 Test Item Value Reference Range Comments POC-GLUCOSE METER (BEAKER) 136 mg/dL 70-110 : TAMMY CHARLES AT [address] (test code = 1538) [facility], [address]: Lens Grinder/Technic melody ID = [id number] for MITCH LOPEZ A POCT-GLUCOSE [id number] 09:14:00 Test Item Value Reference Range Comments POC-GLUCOSE METER (BEAKER) 106 mg/dL 70-110 : TAMMY CHARLES AT [address] (test code = 1538) [facility], [address] 30: Lens Grinder/Technic melody ID = [id number] for ARELIS FERNANDEZ RTANGIE POCT-GLUCOSE [id number] 09:14:00 Test Item Value Reference Range Comments POC-GLUCOSE METER (BEAKER) 104 mg/dL 70-110 : Not ified RN/MD: TESTED AT (test code = 1538) [address], [address]: Lens Grinder/ Transition Lead ID = [id number] for TEJ BOSS POCT-GLUCOSE [id number] 09:14:00 Test Item Value Reference Range Comments POC-GLUCOSE METER (BEAKER) 132 mg/dL 70-110 : TAMMY CHARLES AT [address] (test code = 1538) [facility], 7 30: Lens Grinder/Technic melody ID = [id number] for DONALDO CARTAGENA POCT-GLUCOSE [id number] 09:13:00 Test Item Value Reference Range Comments POC-GLUCOSE METER (BEAKER) 163 mg/dL 70-110 : TAMMY CHARLES AT [address] (test code = 1538) [facility], 7 30: Lens Grinder/Technic melody ID = [id number] for Raji Flores ra POCT-GLUCOSE [id number] 09:13:00 Test Item Value Reference Range Comments POC-GLUCOSE METER (BEAKER) 164 mg/dL 70-110 : TAMMY CHARLES AT [address] (test code = 1538) [facility], [address]: Lens Grinder/Technic melody ID = [id number] for Mark Ta ra POCT-GLUCOSE [id number] 09:12:00 Test Item Value Reference Range Comments POC-GLUCOSE METER (BEAKER) 153 mg/dL 70-110 : TAMMY CHARLES AT [address] (test code = 1538) [facility], [address]: Lens Grinder/Technic melody ID = [id number] for Jen Ojeda POCT-GLUCOSE [id number] 09:12:00 Test Item Value Reference Range Comments POC-GLUCOSE METER (BEAKER) 123 mg/dL 70-110 : TAMMY CHARLES AT [facility] [address] [facility] (test code = 1538) [facility], [address]: Lens Grinder/Technic melody ID = [id number] for JOHN JONES POCT-GLUCOSE [id number] 09:12:00 Test Item Value Reference Range Comments POC-GLUCOSE METER (BEAKER) 104 mg/dL 70-110 : TAMMY CHARLES AT [address] (test code = 1538) [facility], [address]: Lens Grinder/Technic melody ID = [id number] for JEROMY MCDONALD IN POCT-GLUCOSE [id number] 09:12:00 Test Item Value Reference Range Comments POC-GLUCOSE METER (BEAKER) 102 mg/dL 70-110 : TAMMY CHARLES AT [address] (test code = 1538) [facility], [address]: Lens Grinder/Technic melody ID = [id number] for JOHN JONES RAD, CHEST, 1 VIEW, NON [id number] 07:26:00Reason for exam:- >dyspneaShould this be performed at the bedside?->YesFINAL REPORT CLINICAL HISTORY: dyspnea TECHNIQUE: 1 view of the chest. COMPAR SRINIVASAN: 02/05/2020 IMPRESSION: The ETT has been removed. There is an NG tube below the diaphragm. The right central line is unchanged in position. Mild prominence of the central pulmonary vasculature is noted. There is no lobar consolidation or significant pleural fluid. The heart is not significantly enlarged. Signed: Guerda Blackman MDReport Verified Date/Time: 02/11/2020 07:26:13 Reading Location: [facility] Radiology Reading Room CBC W/PLT COUNT & AUTO [id number] 05:41:00 Test Item Value Reference Range Comments WHITE BLOOD CELL COUNT (BEAKER) (test code = 15.6 K/ L 3.5 -10.5 775) RED BLOOD CELL COUNT (BEAKER) (test code = 761) 3.27 M/ L 3.93-5.22 HEMOGLOBIN (BEAKER) (test code = 410) 10.3 GM/DL 11.2-15.7 HEMATOCRIT (BEAKER) (test code = 411) 30.2 % 34.1-44.9 MEAN CORPUSCULAR VOLUME (BEAKER) (test code = 92.4 fL 79 .4-94.8 753) MEAN CORPUSCULAR HEMOGLOBIN (BEAKER) (test code 31.5 pg 25.6-32.2 = 751) MEAN CORPUSCULAR HEMOGLOBIN CONC (BEAKER) (test 34.1 GM/DL 32.2-35.5 code = 752) RED CELL DISTRIBUTION WIDTH (BEAKER) (test code 13.6 % 11.7-14.4 = 412) PLATELET COUNT (BEAKER) (test code = 756) 224 K/CU MM 150-45 0 MEAN PLATELET VOLUME (BEAKER) (test code = 754) 10.1 fL 9.4-12.3 NUCLEATED RED BLOOD CELLS (BEAKER) (test code = 0 /100 WBC 0-0 413) NEUTROPHILS RELATIVE PERCENT (BEAKER) (test code 80 % = 429) LYMPHOCYTES RELATIVE PERCENT (BEAKER) (test code 12 % = 430) MONOCYTES RELATIVE PERCENT (BEAKER) (test code = 6 % 431) EOSINOPHILS RELATIVE PERCENT (BEAKER) (test code 0 % = 432) BASOPHILS RELATIVE PERCENT (BEAKER) (test code = 0 % 437) NEUTROPHILS ABSOLUTE COUNT (BEAKER) (test code = 12.43 K/ L 1.56-6.13 670) LYMPHOCYTES ABSOLUTE COUNT (BEAKER) (test code = 1.85 K/ L 1.18-3.74 414) MONOCYTES ABSOLUTE COUNT (BEAKER) (test code = 0.98 K/ L 0 .24-0.36 415) EOSINOPHILS ABSOLUTE COUNT (BEAKER) (test code = 0.07 K/ L 0.04-0.36 416) BASOPHILS ABSOLUTE COUNT (BEAKER) (test code = 0.03 K/ L 0 .01-0.08 417) IMMATURE GRANULOCYTES-RELATIVE PERCENT (BEAKER) 2 % 0-1 (test code = 2801) [id number] 05:26:00 Test Item Value Reference Range Comments PHOSPHORUS (BEAKER) (test code = 604) 2.3 mg/dL 2.3-4.7 Lens Grinder ID - ALYSON [id number] 05:26:00 Test Item Value Reference Range Comments MAGNESIUM (BEAKER) (test code = 627) 1.8 mg/dL 1.6-2.6 Lens Grinder ID - ALYSON MBASIC METABOLIC [id number] 05:26:00 Test Item Value Reference Range Comments SODIUM (BEAKER) (test 137 meq/L 136-145 code = 381) POTASSIUM (BEAKER) (test 3.5 meq/L 3.5-5.1 code = 379) CHLORIDE (BEAKER) (test 104 meq/L 98-107 code = 382) CO2 (BEAKER) (test code = 25 meq/L 22-29 355) BLOOD UREA NITROGEN 15 mg/dL 7-21 (BEAKER) (test code = 354) CREATININE (BEAKER) (test 0.54 mg/dL 0.57-1.25 code = 358) GLUCOSE RANDOM (BEAKER) 139 mg/dL 70-105 (test code = 652) CALCIUM (BEAKER) (test 9.1 mg/dL 8.4-10.2 code = 697) EGFR (BEAKER) (test code 113 mL/min/1.73 sq m ES TIMATED GFR IS NOT = 1092) ACCURATE CREA TININE CLEARANCE IN PRE DICTING GLOMERULAR FILTR ATION RATE. ESTIMATED GFR IS NOT APPLICABLE F OR DIALYSIS PATIENT S. Lens Grinder ID - ALYSON [id number] 04:44:00 Test Item Value Reference Range Comments PHOSPHORUS (BEAKER) (test code = 604) 2.1 mg/dL 2.3-4.7 Lens Grinder ID - JOHN [id number] 04:44:00 Test Item Value Reference Range Comments MAGNESIUM (BEAKER) (test code = 627) 2.0 mg/dL 1.6-2.6 Lens Grinder ID - JOHN LBASIC METABOLIC [id number] 04:44:00 Test Item Value Reference Range Comments SODIUM (BEAKER) (test 144 meq/L 136-145 code = 381) POTASSIUM (BEAKER) (test 3.4 meq/L 3.5-5.1 code = 379) CHLORIDE (BEAKER) (test 112 meq/L 98-107 code = 382) CO2 (BEAKER) (test code = 27 meq/L 22-29 355) BLOOD UREA NITROGEN 13 mg/dL 7-21 (BEAKER) (test code = 354) CREATININE (BEAKER) (test 0.55 mg/dL 0.57-1.25 code = 358) GLUCOSE RANDOM (BEAKER) 135 mg/dL 70-105 (test code = 652) CALCIUM (BEAKER) (test 8.7 mg/dL 8.4-10.2 code = 697) EGFR (BEAKER) (test code 111 mL/min/1.73 sq m ES TIMATED GFR IS NOT = 1092) ACCURATE CREA TININE CLEARANCE IN PRE DICTING GLOMERULAR FILTR ATION RATE. ESTIMATED GFR IS NOT APPLICABLE F OR DIALYSIS PATIENT S. Lens Grinder ID - PIAYA LCBC W/PLT COUNT & AUTO [id number] 04:26:00 Test Item Value Reference Range Comments WHITE BLOOD CELL COUNT (BEAKER) (test code = 14.6 K/ L 3.5 -10.5 775) RED BLOOD CELL COUNT (BEAKER) (test code = 761) 3.13 M/ L 3.93-5.22 HEMOGLOBIN (BEAKER) (test code = 410) 9.6 GM/DL 11.2-15.7 HEMATOCRIT (BEAKER) (test code = 411) 29.1 % 34.1-44.9 MEAN CORPUSCULAR VOLUME (BEAKER) (test code = 93.0 fL 79 .4-94.8 753) MEAN CORPUSCULAR HEMOGLOBIN (BEAKER) (test code 30.7 pg 25.6-32.2 = 751) MEAN CORPUSCULAR HEMOGLOBIN CONC (BEAKER) (test 33.0 GM/DL 32.2-35.5 code = 752) RED CELL DISTRIBUTION WIDTH (BEAKER) (test code 14.5 % 11.7-14.4 = 412) PLATELET COUNT (BEAKER) (test code = 756) 204 K/CU MM 150-45 0 MEAN PLATELET VOLUME (BEAKER) (test code = 754) 9.3 fL 9.4-12.3 NUCLEATED RED BLOOD CELLS (BEAKER) (test code = 0 /100 WBC 0-0 413) NEUTROPHILS RELATIVE PERCENT (BEAKER) (test code 82 % = 429) LYMPHOCYTES RELATIVE PERCENT (BEAKER) (test code 10 % = 430) MONOCYTES RELATIVE PERCENT (BEAKER) (test code = 7 % 431) EOSINOPHILS RELATIVE PERCENT (BEAKER) (test code 0 % = 432) BASOPHILS RELATIVE PERCENT (BEAKER) (test code = 0 % 437) NEUTROPHILS ABSOLUTE COUNT (BEAKER) (test code = 12.00 K/ L 1.56-6.13 670) LYMPHOCYTES ABSOLUTE COUNT (BEAKER) (test code = 1.40 K/ L 1.18-3.74 414) MONOCYTES ABSOLUTE COUNT (BEAKER) (test code = 0.98 K/ L 0 .24-0.36 415) EOSINOPHILS ABSOLUTE COUNT (BEAKER) (test code = 0.01 K/ L 0.04-0.36 416) BASOPHILS ABSOLUTE COUNT (BEAKER) (test code = 0.02 K/ L 0 .01-0.08 417) IMMATURE GRANULOCYTES-RELATIVE PERCENT (BEAKER) 1 % 0-1 (test code = 2801) [id number] 17:25:00 Test Item Value Reference Range Comments POTASSIUM (BEAKER) (test code = 379) 3.8 meq/L 3.5-5.1 Lens Grinder ID - [id number] 13:59:00 Test Item Value Reference Range Comments POTASSIUM (BEAKER) (test code = 379) 3.5 meq/L 3.5-5.1 Lens Grinder ID - [id number] 10:14:00 Test Item Value Reference Range Comments POTASSIUM (BEAKER) (test code = 379) 3.2 meq/L 3.5-5.1 Lens Grinder ID - [id number] 10:14:00 Test Item Value Reference Range Comments MAGNESIUM (BEAKER) (test code = 627) 2.3 mg/dL 1.6-2.6 Lens Grinder ID - [id number] 10:14:00 Test Item Value Reference Range Comments PHOSPHORUS (BEAKER) (test code = 604) 2.9 mg/dL 2.3-4.7 Lens Grinder ID - NTPVANCOMYCIN LEVEL, [id number] 10:13:00 Test Item Value Reference Range Comments VANCOMYCIN TROUGH (BEAKER) (test code = 522) 3.7 ug/mL 10. 0-20.0 Lens Grinder ID - NTPCT, BRAIN, WITHOUT [id number] 09:40:00FINAL REPORT CT, BRAIN, WITHOUT CONTRAST CLINICAL INDICATION: Headache, intracranial hemorrhage suspected COMPARISON: February 05, 2020 TECHNIQUE: Noncontrast axial CT imaging of the brain and skull. DOSE REDUCTION: Dose modulation, iterative reconstruction, and/or weight-based a djustment of the mA/kV was utilized to reduce the radiation dose to as low as reasonably achievable.FINDINGS:Right frontal approach ventricular catheter terminates near the foramen of Monro. Intraventricular hematoma layering within the occipital horns of the lateral ventricles is not significantly changed. Ventricles are slightly decreased in size. No hydrocephalus. There is incrementally increasedsize of a small intraparenchymal hematoma measuring 1.9 x 2.2 x 2.3 cm along the trajectory of the ventricular catheter within the right frontal lobe. Small bilateral tentorial subdural hematomas are unchanged. There is slight interval increased conspicuity of subarachnoid blood products within the bilateral parietal vertex sulci. Streak artifact from left PICA aneurysmal coils minimally limits evaluation of the posterior fossa, which is otherwise grossly unchanged with mild persistent effacement ofthe fourth ventricle. Orbits are within normal limits. No obstructive paranasal sinus disease. Right NG tube. IMPRESSION: No significant interval change. 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 Right frontal approach ventricular catheter in place. No hydrocephalus. Signed: Alexus Marroquin MDReport VerifiedDate/Time: 02/09/2020 09:40:07 Reading Location: [address] Neuro Reading Room [id number] 09:00:00 Test Item Value Reference Range Comments CULTURE (BEAKER) (test code = 1095) No MRSA isolated SPUTUM CULTURE + GRAM [id number] 08:54:00 Test Item Value Reference Range Comments CULTURE (BEAKER) (test STAPHYLOCOCCUS AUREUS 3+ Staphylococcus code = 1095) aureus Clindamycin (test code = 10) Erythromycin (test code = 4) Linezolid (test code = 40) Nitrofurantoin (test code = 23) Oxacillin (test code = 14) Rifampin (test code = 43) Tetracycline (test code = 2) Trimethoprim + Sulfamethoxazole (test code = 47) Vancomycin (test code = 13) GRAM STAIN RESULT 1+ White blood cells (BEAKER) (test code = seen 1123) GRAM STAIN RESULT 0-5 epithelial cells (BEAKER) (test code = 192372) GRAM STAIN RESULT No organisms seen (BEAKER) (test code = 471590) No Normal respiratory nola [id number] 07:37:00 Test Item Value Reference Range Comments FERRITIN (BEAKER) (test code = 361) 183.29 ng/mL 5.00-275.00 Lens Grinder ID - NTPIRON, TIBC, % SAT. (WITHOUT FERRITIN)2020-02-09 07:17:00 Test Item Value Reference Range Comments IRON (BEAKER) (test code = 547) 41.0 ug/dL 40.0-160.0 TOTAL IRON BINDING CAPACITY (BEAKER) (test code = 189 ug/dL 250-450 769) IRON % SATURATION (2) (BEAKER) (test code = 2590) 22 % 20-55 Lens Grinder ID - NTPCBC W/PLT COUNT & AUTO [id number] 04:40:00 Test Item Value Reference Range Comments WHITE BLOOD CELL COUNT (BEAKER) (test code = 15.9 K/ L 3.5 -10.5 775) RED BLOOD CELL COUNT (BEAKER) (test code = 761) 3.26 M/ L 3.93-5.22 HEMOGLOBIN (BEAKER) (test code = 410) 10.2 GM/DL 11.2-15.7 HEMATOCRIT (BEAKER) (test code = 411) 31.0 % 34.1-44.9 MEAN CORPUSCULAR VOLUME (BEAKER) (test code = 95.1 fL 79 .4-94.8 753) MEAN CORPUSCULAR HEMOGLOBIN (BEAKER) (test code 31.3 pg 25.6-32.2 = 751) MEAN CORPUSCULAR HEMOGLOBIN CONC (BEAKER) (test 32.9 GM/DL 32.2-35.5 code = 752) RED CELL DISTRIBUTION WIDTH (BEAKER) (test code 14.3 % 11.7-14.4 = 412) PLATELET COUNT (BEAKER) (test code = 756) 205 K/CU MM 150-45 0 MEAN PLATELET VOLUME (BEAKER) (test code = 754) 9.6 fL 9.4-12.3 NUCLEATED RED BLOOD CELLS (BEAKER) (test code = 0 /100 WBC 0-0 413) NEUTROPHILS RELATIVE PERCENT (BEAKER) (test code 88 % = 429) LYMPHOCYTES RELATIVE PERCENT (BEAKER) (test code 6 % = 430) MONOCYTES RELATIVE PERCENT (BEAKER) (test code = 5 % 431) EOSINOPHILS RELATIVE PERCENT (BEAKER) (test code 0 % = 432) BASOPHILS RELATIVE PERCENT (BEAKER) (test code = 0 % 437) NEUTROPHILS ABSOLUTE COUNT (BEAKER) (test code = 14.00 K/ L 1.56-6.13 670) LYMPHOCYTES ABSOLUTE COUNT (BEAKER) (test code = 0.99 K/ L 1.18-3.74 414) MONOCYTES ABSOLUTE COUNT (BEAKER) (test code = 0.79 K/ L 0 .24-0.36 415) EOSINOPHILS ABSOLUTE COUNT (BEAKER) (test code = 0.00 K/ L 0.04-0.36 416) BASOPHILS ABSOLUTE COUNT (BEAKER) (test code = 0.02 K/ L 0 .01-0.08 417) IMMATURE GRANULOCYTES-RELATIVE PERCENT (BEAKER) 1 % 0-1 (test code = 2801) [id number] 04:25:00 Test Item Value Reference Range Comments PHOSPHORUS (BEAKER) (test code = 604) 1.3 mg/dL 2.3-4.7 Lens Grinder ID - [id number] 04:19:00 Test Item Value Reference Range Comments MAGNESIUM (BEAKER) (test code = 627) 2.2 mg/dL 1.6-2.6 Lens Grinder ID - BSBASIC METABOLIC [id number] 04:19:00 Test Item Value Reference Range Comments SODIUM (BEAKER) (test 144 meq/L 136-145 code = 381) POTASSIUM (BEAKER) (test 3.0 meq/L 3.5-5.1 code = 379) CHLORIDE (BEAKER) (test 113 meq/L 98-107 code = 382) CO2 (BEAKER) (test code = 25 meq/L 22-29 355) BLOOD UREA NITROGEN 15 mg/dL 7-21 (BEAKER) (test code = 354) CREATININE (BEAKER) (test 0.57 mg/dL 0.57-1.25 code = 358) GLUCOSE RANDOM (BEAKER) 126 mg/dL 70-105 (test code = 652) CALCIUM (BEAKER) (test 8.7 mg/dL 8.4-10.2 code = 697) EGFR (BEAKER) (test code 106 mL/min/1.73 sq m ES TIMATED GFR IS NOT = 1092) ACCURATE CREA TININE CLEARANCE IN PRE DICTING GLOMERULAR FILTR ATION RATE. ESTIMATED GFR IS NOT APPLICABLE F OR DIALYSIS PATIENT S. Lens Grinder ID - BSPOCT-GLUCOSE [id number] 17:20:00 Test Item Value Reference Range Comments POC-GLUCOSE METER (BEAKER) 115 mg/dL 70-110 : TAMMY CHARLES AT [facility] [address] [facility] (test code = 1538) [facility], [address]: Lens Grinder/Technic melody ID = [id number] for JOHN JONES TROPONIN [id number] 11:33:00 Test Item Value Reference Range Comments TROPONIN I (BEAKER) (test code = 397) 0.09 ng/mL 0.00-0.03 Troponin I (TnI) levels must be interpreted in the context of the presenting symptoms and the clinical findings. Elevated TnI levels indicate myocardial damage, but are not specific for ischemic heart disease. Elevated TnI levels are seen in patients with other cardiac conditions (including myocarditis and congestive heart failure), and slight TnI elevations occur in patients with other conditions, including sepsis, renal failure, acidosis, acute neurological disease, and persistent tachyarrhythmia.Lens Grinder ID - REGULO CVITAMIN B12 AND [id number] 07:56:00 Test Item Value Reference Range Comments VITAMIN B12 (BEAKER) (test code = 774) 368 pg/mL 213-816 FOLATE (BEAKER) (test code = 362) 11.90 ng/mL >=7.00 Lens Grinder ID - ALYSON MHEPATIC FUNCTION [id number] 07:19:00 Test Item Value Reference Range Comments TOTAL PROTEIN (BEAKER) (test 6.0 gm/dL 6.0-8.3 Spe cimen slightly hemolyzed code = 770) ALBUMIN (BEAKER) (test code = 3.4 g/dL 3.5-5.0 Sp ecimen slightly hemolyzed 1145) BILIRUBIN TOTAL (BEAKER) (test 0.6 mg/dL 0.2-1.2 S pecimen slightly hemolyzed code = 377) BILIRUBIN DIRECT (BEAKER) (test 0.2 mg/dL 0.1-0.5 Specimen slightly hemolyzed code = 706) ALKALINE PHOSPHATASE (BEAKER) 63 U/L 40-150 (test code = 346) AST (SGOT) (BEAKER) (test code 20 U/L 5-34 S pecimen slightly hemolyzed = 353) ALT (SGPT) (BEAKER) (test code 17 U/L 6-55 S pecimen slightly hemolyzed = 347) Lens Grinder ID - ALYSON [id number] 04:11:00 Test Item Value Reference Range Comments PHOSPHORUS (BEAKER) (test code 1.4 mg/dL 2.3-4.7 S pecimen slightly hemolyzed = 604) Lens Grinder ID - ALYSON [id number] 03:57:00 Test Item Value Reference Range Comments MAGNESIUM (BEAKER) (test code = 1.9 mg/dL 1.6-2.6 Specimen slightly hemolyzed 627) Lens Grinder ID - ALYSON MBASIC METABOLIC [id number] 03:57:00 Test Item Value Reference Range Comments SODIUM (BEAKER) (test 144 meq/L 136-145 code = 381) POTASSIUM (BEAKER) (test 3.5 meq/L 3.5-5.1 Specime n slightly code = 379) hemolyzed CHLORIDE (BEAKER) (test 112 meq/L 98-107 code = 382) CO2 (BEAKER) (test code = 24 meq/L 22-29 355) BLOOD UREA NITROGEN 11 mg/dL 7-21 (BEAKER) (test code = 354) CREATININE (BEAKER) (test 0.61 mg/dL 0.57-1.25 Specim en slightly code = 358) hemolyzed GLUCOSE RANDOM (BEAKER) 122 mg/dL 70-105 (test code = 652) CALCIUM (BEAKER) (test 8.2 mg/dL 8.4-10.2 code = 697) EGFR (BEAKER) (test code 98 mL/min/1.73 sq m EST IMATED GFR IS NOT = 1092) ACCURATE CREA TININE CLEARANCE IN PRE DICTING GLOMERULAR FILTR ATION RATE. ESTIMATED GFR IS NOT APPLICABLE F OR DIALYSIS PATIENT S. Lens Grinder ID - ALYSON MCBC W/PLT COUNT & AUTO [id number] 03:42:00 Test Item Value Reference Range Comments WHITE BLOOD CELL COUNT (BEAKER) (test code = 18.2 K/ L 3.5 -10.5 775) RED BLOOD CELL COUNT (BEAKER) (test code = 761) 3.15 M/ L 3.93-5.22 HEMOGLOBIN (BEAKER) (test code = 410) 9.8 GM/DL 11.2-15.7 HEMATOCRIT (BEAKER) (test code = 411) 30.1 % 34.1-44.9 MEAN CORPUSCULAR VOLUME (BEAKER) (test code = 95.6 fL 79 .4-94.8 753) MEAN CORPUSCULAR HEMOGLOBIN (BEAKER) (test code 31.1 pg 25.6-32.2 = 751) MEAN CORPUSCULAR HEMOGLOBIN CONC (BEAKER) (test 32.6 GM/DL 32.2-35.5 code = 752) RED CELL DISTRIBUTION WIDTH (BEAKER) (test code 14.6 % 11.7-14.4 = 412) PLATELET COUNT (BEAKER) (test code = 756) 198 K/CU MM 150-45 0 MEAN PLATELET VOLUME (BEAKER) (test code = 754) 9.8 fL 9.4-12.3 NUCLEATED RED BLOOD CELLS (BEAKER) (test code = 0 /100 WBC 0-0 413) NEUTROPHILS RELATIVE PERCENT (BEAKER) (test code 89 % = 429) LYMPHOCYTES RELATIVE PERCENT (BEAKER) (test code 5 % = 430) MONOCYTES RELATIVE PERCENT (BEAKER) (test code = 5 % 431) EOSINOPHILS RELATIVE PERCENT (BEAKER) (test code 0 % = 432) BASOPHILS RELATIVE PERCENT (BEAKER) (test code = 0 % 437) NEUTROPHILS ABSOLUTE COUNT (BEAKER) (test code = 16.18 K/ L 1.56-6.13 670) LYMPHOCYTES ABSOLUTE COUNT (BEAKER) (test code = 0.98 K/ L 1.18-3.74 414) MONOCYTES ABSOLUTE COUNT (BEAKER) (test code = 0.87 K/ L 0 .24-0.36 415) EOSINOPHILS ABSOLUTE COUNT (BEAKER) (test code = 0.00 K/ L 0.04-0.36 416) BASOPHILS ABSOLUTE COUNT (BEAKER) (test code = 0.02 K/ L 0 .01-0.08 417) IMMATURE GRANULOCYTES-RELATIVE PERCENT (BEAKER) 1 % 0-1 (test code = 2801) VANCOMYCIN LEVEL, [id number] 10:01:00 Test Item Value Reference Range Comments VANCOMYCIN TROUGH (BEAKER) (test code = 522) 6.7 ug/mL 10. 0-20.0 Lens Grinder ID - AAHAMIDLACTIC ACID, [id number] 09:56:00 Test Item Value Reference Range Comments LACTATE BLOOD ARTERIAL (2) (BEAKER) (test code = 0.5 mmol/L 0.5-2.2 2874) Lens Grinder ID - REGULO CCT, BRAIN, WITHOUT [id number] 07:26:00FINAL REPORT CT, BRAIN, WITHOUT CONTRAST INDICATION: Subarachnoid hemorrhage (SAH) suspectedLUE weakness TECHNIQUE: Noncontrast axial imaging was obtained from the vertex to the skull base. Axial images were reconstructed using a bone algorithm. DOSE REDUCTION: Dose modulation, iterative reconstruction, and/or weight-based adjustment of the mA/kV was utilized to reduce the radiation dose to as low as reasonably achievable. COMPARISON: Noncontrast head CT February 04, 2001 CT angiography February 05, 2020 and diagnostic and treatment catheter directed angiography February 06, 2020 FINDINGS: Over the interval there has been increased hemorrhagic material along the right frontal ventricular drainage catheter tract. Continued ventricular decompression has resulted with associated redistribution of blood into the ventricular spaces. There is diffuse subarachnoid blood including subduralcomponent along the tentorial leaflets and posterior, predominantly left side of the falx. Since the prior examination there is subtle hypoattenuation in the right prefrontal cortex without underlying parenchymal hemorrhagic conversion. The perez-white distinction is otherwise preserved. 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 No new parenchymal hemorrhage is detected. There is no infarct. IMPRESSION: Suspected acute small-volume ischemic change in the right prefrontal gyrus. Findings discussed with neurosurgical housestaff at the time of dictation. Redistribution of subarachnoidand extra-axial blood with greater volume in the ventricular spaces despite global ventricular decompression as a result of frontal catheter placement. Increasing hemorrhagic material along the catheter tract may also represent sequela of redistribution. Signed: JR Kallie, Jeniffer Camp Verified Date/Time: 02/07/2020 07:26:02 Reading Location: [facility] C013V Neuro Reading Room BASIC METABOLIC [id number] 05:48:00 Test Item Value Reference Range Comments SODIUM (BEAKER) (test code = 144 meq/L 136-145 381) POTASSIUM (BEAKER) (test 3.6 meq/L 3.5-5.1 code = 379) CHLORIDE (BEAKER) (test code 116 meq/L 98-107 = 382) CO2 (BEAKER) (test code = 23 meq/L 22-29 355) BLOOD UREA NITROGEN (BEAKER) 10 mg/dL 7-21 (test code = 354) CREATININE (BEAKER) (test 0.60 mg/dL 0.57-1.25 code = 358) GLUCOSE RANDOM (BEAKER) 118 mg/dL 70-105 (test code = 652) CALCIUM (BEAKER) (test code 7.9 mg/dL 8.4-10.2 = 697) EGFR (BEAKER) (test code = INSUF FICIENT CLINICAL DATA TO 1092) CALCULATE ESTIMA CHARLES GFR. Lens Grinder ID - JOHN [id number] 05:20:00 Test Item Value Reference Range Comments PHOSPHORUS (BEAKER) (test code = 604) 3.0 mg/dL 2.3-4.7 Lens Grinder ID - JOHN [id number] 05:20:00 Test Item Value Reference Range Comments MAGNESIUM (BEAKER) (test code = 627) 2.0 mg/dL 1.6-2.6 Lens Grinder ID - JOHN LBLOOD GAS, [id number] 05:09:00 Test Item Value Reference Range Comments PH ARTERIAL (BEAKER) (test code = 383) 7.34 7.35-7.45 PCO2 ARTERIAL (BEAKER) (test code = 384) 43 mmHg 35-45 PO2 ARTERIAL (BEAKER) (test code = 385) 190 mmHg 80-90 O2 SATURATION ARTERIAL (BEAKER) (test code = 99.2 % 96. 0-97.0 386) HCO3 ARTERIAL (BEAKER) (test code = 388) 23 mmol/L 21-29 BASE EXCESS ARTERIAL (BEAKER) (test code = 387) -2.9 mmol/L -2.0-3.0 PATIENT TEMPERATURE (BEAKER) (test code = 1818) 36.7 C FIO2 (BEAKER) (test code = 1819) 52.0 % Starting while intubatedCBC W/PLT COUNT & AUTO [id number] 04:55:00 Test Item Value Reference Range Comments WHITE BLOOD CELL COUNT 21.2 K/ L 3.5-10.5 (BEAKER) (test code = 775) RED BLOOD CELL COUNT (BEAKER) 3.03 M/ L 3.93-5.22 (test code = 761) HEMOGLOBIN (BEAKER) (test 9.7 GM/DL 11.2-15.7 code = 410) HEMATOCRIT (BEAKER) (test 29.4 % 34.1-44.9 code = 411) MEAN CORPUSCULAR VOLUME 97.0 fL 79.4-94.8 Discorda nt MCV result (BEAKER) (test code = 753) gina red to previous result; clinical correla tion required. MEAN CORPUSCULAR HEMOGLOBIN 32.0 pg 25.6-32.2 (BEAKER) (test code = 751) MEAN CORPUSCULAR HEMOGLOBIN 33.0 GM/DL 32.2-35.5 CONC (BEAKER) (test code = 752) RED CELL DISTRIBUTION WIDTH 14.1 % 11.7-14.4 (BEAKER) (test code = 412) PLATELET COUNT (BEAKER) (test 199 K/CU MM 150-450 code = 756) MEAN PLATELET VOLUME (BEAKER) 10.0 fL 9.4-12.3 (test code = 754) NUCLEATED RED BLOOD CELLS 0 /100 WBC 0-0 (BEAKER) (test code = 413) NEUTROPHILS RELATIVE PERCENT 91 % (BEAKER) (test code = 429) LYMPHOCYTES RELATIVE PERCENT 4 % (BEAKER) (test code = 430) MONOCYTES RELATIVE PERCENT 5 % (BEAKER) (test code = 431) EOSINOPHILS RELATIVE PERCENT 0 % (BEAKER) (test code = 432) BASOPHILS RELATIVE PERCENT 0 % (BEAKER) (test code = 437) NEUTROPHILS ABSOLUTE COUNT 19.38 K/ L 1.56-6.13 (BEAKER) (test code = 670) LYMPHOCYTES ABSOLUTE COUNT 0.77 K/ L 1.18-3.74 (BEAKER) (test code = 414) MONOCYTES ABSOLUTE COUNT 0.98 K/ L 0.24-0.36 (BEAKER) (test code = 415) EOSINOPHILS ABSOLUTE COUNT 0.00 K/ L 0.04-0.36 (BEAKER) (test code = 416) BASOPHILS ABSOLUTE COUNT 0.02 K/ L 0.01-0.08 (BEAKER) (test code = 417) IMMATURE 0 % 0-1 GRANULOCYTES-RELATIVE PERCENT (BEAKER) (test code = 2801) POCT-GLUCOSE [id number] 00:31:00 Test Item Value Reference Range Comments POC-GLUCOSE METER (BEAKER) 98 mg/dL 70-110 : [facility] [address] [facility] (test code = 1538) [employer], 7 [address]30: Lens Grinder/Technic melody ID = [id number] for Mark Raji peres TROPONIN [id number] 16:06:00 Test Item Value Reference Range Comments TROPONIN I (BEAKER) (test code = 397) 0.29 ng/mL 0.00-0.03 Troponin I (TnI) levels must be interpreted in the context of the presenting symptoms and the clinical findings. Elevated TnI levels indicate myocardial damage, but are not specific for ischemic heart disease. Elevated TnI levels are seen in patients with other cardiac conditions (including myocarditis and congestive heart failure), and slight TnI elevations occur in patients with other conditions, including sepsis, renal failure, acidosis, acute neurological disease, and persistent tachyarrhythmia.Lens Grinder ID - [id number] 15:48:00 Test Item Value Reference Range Comments PROCALCITONIN (BEAKER) (test code = 3036) 0.29 ng/mL <0.05 SEPSIS RISK (ng/mL)Low: 0.05-0.50Intermediate: 0.51-2.00High: >=2.01TROPONIN [id number] 08:54:00 Test Item Value Reference Range Comments TROPONIN I (BEAKER) (test code = 397) 0.42 ng/mL 0.00-0.03 Troponin I (TnI) levels must be interpreted in the context of the presenting symptoms and the clinical findings. Elevated TnI levels indicate myocardial damage, but are not specific for ischemic heart disease. Elevated TnI levels are seen in patients with other cardiac conditions (including myocarditis and congestive heart failure), and slight TnI elevations occur in patients with other conditions, including sepsis, renal failure, acidosis, acute neurological disease, and persistent tachyarrhythmia.Lens Grinder ID - REGULO CTROPONIN [id number] 03:48:00 Test Item Value Reference Range Comments TROPONIN I (BEAKER) (test code = 397) 0.51 ng/mL 0.00-0.03 Troponin I (TnI) levels must be interpreted in the context of the presenting symptoms and the clinical findings. Elevated TnI levels indicate myocardial damage, but are not specific for ischemic heart disease. Elevated TnI levels are seen in patients with other cardiac conditions (including myocarditis and congestive heart failure), and slight TnI elevations occur in patients with other conditions, including sepsis, renal failure, acidosis, acute neurological disease, and persistent tachyarrhythmia.Lens Grinder ID - ALYSON MBASIC METABOLIC [id number] 03:06:00 Test Item Value Reference Range Comments SODIUM (BEAKER) (test code = 140 meq/L 136-145 381) POTASSIUM (BEAKER) (test 3.2 meq/L 3.5-5.1 code = 379) CHLORIDE (BEAKER) (test code 108 meq/L 98-107 = 382) CO2 (BEAKER) (test code = 24 meq/L 22-29 355) BLOOD UREA NITROGEN (BEAKER) 13 mg/dL 7-21 (test code = 354) CREATININE (BEAKER) (test 0.65 mg/dL 0.57-1.25 code = 358) GLUCOSE RANDOM (BEAKER) 170 mg/dL 70-105 (test code = 652) CALCIUM (BEAKER) (test code 8.2 mg/dL 8.4-10.2 = 697) EGFR (BEAKER) (test code = INSUF FICIENT CLINICAL DATA TO 1092) CALCULATE ESTIMA CHARLES GFR. Lens Grinder ID - ALYSON [id number] 03:04:00 Test Item Value Reference Range Comments PHOSPHORUS (BEAKER) (test code = 604) 2.2 mg/dL 2.3-4.7 Lens Grinder ID - ALYSON [id number] 03:04:00 Test Item Value Reference Range Comments MAGNESIUM (BEAKER) (test code = 627) 1.6 mg/dL 1.6-2.6 Lens Grinder ID - ALYSON [facility]BC W/PLT COUNT & AUTO [id number] 02:58:00 Test Item Value Reference Range Comments WHITE BLOOD CELL COUNT (BEAKER) (test code = 13.9 K/ L 3.5 -10.5 775) RED BLOOD CELL COUNT (BEAKER) (test code = 761) 3.65 M/ L 3.93-5.22 HEMOGLOBIN (BEAKER) (test code = 410) 11.3 GM/DL 11.2-15.7 HEMATOCRIT (BEAKER) (test code = 411) 33.4 % 34.1-44.9 MEAN CORPUSCULAR VOLUME (BEAKER) (test code = 91.5 fL 79 .4-94.8 753) MEAN CORPUSCULAR HEMOGLOBIN (BEAKER) (test code 31.0 pg 25.6-32.2 = 751) MEAN CORPUSCULAR HEMOGLOBIN CONC (BEAKER) (test 33.8 GM/DL 32.2-35.5 code = 752) RED CELL DISTRIBUTION WIDTH (BEAKER) (test code 13.1 % 11.7-14.4 = 412) PLATELET COUNT (BEAKER) (test code = 756) 208 K/CU MM 150-45 0 MEAN PLATELET VOLUME (BEAKER) (test code = 754) 9.0 fL 9.4-12.3 NUCLEATED RED BLOOD CELLS (BEAKER) (test code = 0 /100 WBC 0-0 413) NEUTROPHILS RELATIVE PERCENT (BEAKER) (test code 91 % = 429) LYMPHOCYTES RELATIVE PERCENT (BEAKER) (test code 4 % = 430) MONOCYTES RELATIVE PERCENT (BEAKER) (test code = 4 % 431) EOSINOPHILS RELATIVE PERCENT (BEAKER) (test code 0 % = 432) BASOPHILS RELATIVE PERCENT (BEAKER) (test code = 0 % 437) NEUTROPHILS ABSOLUTE COUNT (BEAKER) (test code = 12.70 K/ L 1.56-6.13 670) LYMPHOCYTES ABSOLUTE COUNT (BEAKER) (test code = 0.53 K/ L 1.18-3.74 414) MONOCYTES ABSOLUTE COUNT (BEAKER) (test code = 0.60 K/ L 0 .24-0.36 415) EOSINOPHILS ABSOLUTE COUNT (BEAKER) (test code = 0.00 K/ L 0.04-0.36 416) BASOPHILS ABSOLUTE COUNT (BEAKER) (test code = 0.01 K/ L 0 .01-0.08 417) IMMATURE GRANULOCYTES-RELATIVE PERCENT (BEAKER) 0 % 0-1 (test code = 2801) BLOOD GAS, [id number] 02:48:00 Test Item Value Reference Range Comments PH ARTERIAL (BEAKER) (test code = 383) 7.43 7.35-7.45 PCO2 ARTERIAL (BEAKER) (test code = 384) 36 mmHg 35-45 PO2 ARTERIAL (BEAKER) (test code = 385) 167 mmHg 80-90 O2 SATURATION ARTERIAL (BEAKER) (test code = 99.2 % 96. 0-97.0 386) HCO3 ARTERIAL (BEAKER) (test code = 388) 24 mmol/L 21-29 BASE EXCESS ARTERIAL (BEAKER) (test code = 387) -0.2 mmol/L -2.0-3.0 PATIENT TEMPERATURE (BEAKER) (test code = 1818) 36.4 C FIO2 (BEAKER) (test code = 1819) 50.0 % Starting while intubatedTROPONIN [id number] 00:40:00 Test Item Value Reference Range Comments TROPONIN I (BEAKER) (test code = 397) 0.46 ng/mL 0.00-0.03 Troponin I (TnI) levels must be interpreted in the context of the presenting symptoms and the clinical findings. Elevated TnI levels indicate myocardial damage, but are not specific for ischemic heart disease. Elevated TnI levels are seen in patients with other cardiac conditions (including myocarditis and congestive heart failure), and slight TnI elevations occur in patients with other conditions, including sepsis, renal failure, acidosis, acute neurological disease, and persistent tachyarrhythmia.Lens Grinder ID - JOHN LRAD, CHEST, 1 VIEW, NON [id number] 00:08:00Reason for exam:->line placementShould this be performed at the bedside?->YesFINAL REPORT CLINICAL INDICATION: Line placement Comparison: 02/05/2020 at 1618 hours The patient is rotated to the left. A right subclavian CVC tip overlies the superior vena cava without associated pneumothorax or hematoma. The cardiomediastinal contours are grossly stable. Retrocardiac opacity is similar to previous and may reflect atelectasis but pneumonitis should be excluded clinically. An endotracheal tube tip is in good position above the faizan. Signed: Jhonathan Solano MDReport Verified Date/Time: 02/06/2020 00:08:24 BLOOD GAS, [id number] 23:12:00 Test Item Value Reference Range Comments PH ARTERIAL (BEAKER) (test code = 383) 7.46 7.35-7.45 PCO2 ARTERIAL (BEAKER) (test code = 384) 35 mmHg 35-45 PO2 ARTERIAL (BEAKER) (test code = 385) 179 mmHg 80-90 O2 SATURATION ARTERIAL (BEAKER) (test code = 386) 99.3 % 96.0-97.0 HCO3 ARTERIAL (BEAKER) (test code = 388) 24 mmol/L 21-29 BASE EXCESS ARTERIAL (BEAKER) (test code = 387) 0.8 mmol/L -2.0-3.0 PATIENT TEMPERATURE (BEAKER) (test code = 1818) 36.6 C FIO2 (BEAKER) (test code = 1819) 50.0 % CT, BRAIN, WITHOUT [id number] 19:18:00FINAL REPORT CT, BRAIN, WITHOUT CONTRAST INDICATION: Subarachnoid hemorrhage (SAH) suspectedFollow up after EVD placement TECHNIQUE: Noncontrast axial imaging was obtained from the vertex to the skull base. Axial images were reconstructed using a bone algorithm. DOSE REDUCTION: Dose modulation, iterative reconstruction, and/or weight-based adjustment of the mA/kV was utilized to reduce the radiation dose to as low as reasonably achievable. COMPARISON: CT 02/05/2020 at 1559 FINDINGS: Intracranial: Interval placement of a right frontal approach ventriculostomy catheter terminating within the third ventricle. Trace parenchymal hemorrhage and small foci of pneumocephalus along the catheter tract. There is new intraventricular hemorrhage within the bilateral lateral ventricles. Extensive subarachnoid hemorrhage filling the basilar cisterns and extension into the fourth ventricleis unchanged. Overall, the ventricular caliber is similar to minimally increased. Similar mass effect on the left ventral brainstem and craniocervical junction. No evidence of acute territorial infarct. Osseous structures: No fracture. Right frontal amrita hole and overlying soft tissue swelling and air. Paranasal sinuses and mastoid air cells: No evidence of sinusitis. Mastoids are clear. Orbital contents: Globes are intact. IMPRESSION: Interval placement of a right frontal ventriculostomy catheter te rminating in the third ventricle. Trace parenchymal hemorrhage along the catheter tract, and new intraventricular hemorrhage in the lateral ventricles. Overall similar to minimal increase in ventricular caliber since the initial presenting CT. Signed: Charlotte Hewitt MDReport Verified Date/Time: 02/05/2020 19:18:50 [facility] [id number] 17:37:00FINAL REPORT CLINICAL HISTORY: Stroke suspected (Ped 0-18y) TECHNIQUE: Contiguous contrast-enhanced axial images through the neck followed by axial images through the head with coronal and sagittal reformations to assess the arterial circulation. 3-D reconstructions were performed using a volume rendered technique separately on a workstation. This exam was performed according to the departmental dose optimization program which includes automated exposure control, adjustment of the mA and/or kV according to the patient size, and/or use of an iterative reconstruction technique. Stenosis evaluation reported in compliance with NASCET criteria. COMPARISON: Same day noncontrast head CT FINDINGS: CTA head:Extensive subarachnoid hemorrhage filling the basal cisterns, and associated mass effect on the left anterior brainstem and craniocervical junction, better demonstrated on the prior noncontrast head CT. There is a bilobed 3 mm aneurysm arising from the left V4 segment. No major branch vessel occlusion or high-grade focal stenosis. The major intradural venous sinuses are patent. CTA neck:Great vessel origins: No occlusion or high-grade stenosis. Carotid arteries: No occlusion or high-grade stenosis. Vertebral arteries: Mild to moderate stenosis of the proximal right vertebral artery. Left vertebral artery is dominant. No fracture or suspicious osseous lesion. Cervicalsoft tissues are unremarkable. Scarring of the lung apices. 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 The findings were discussed with Dr. DONNA SABILLON MD on 02/05/2020 5:32 PM. Signed: Charlotte Hewitt Verified Date/Time: 02/05/2020 17:37:03 CT, CAROTID, ANGIO 2020-02-05 17:37:00FINAL REPORT CLINICAL HISTORY: Stroke suspected (Ped 0-18y) TECHNIQUE: Contiguous contrast-enhanced axial images through the neck followed by axial images through the head with coronal and sagittal reformations to assess the arterial circulation. 3-D reconstructions were performed using a volume rendered technique separately on a workstation. This exam was performed according to the departmental dose optimization program which includes automated exposure control, adjustment of the mA and/or kV according to the patient size, and/or use of an iterative reconstruction techni que. Stenosis evaluation reported in compliance with NASCET criteria. COMPARISON: Same day noncontrast head CT FINDINGS: CTA head:Extensive subarachnoid hemorrhage filling the basal cisterns, and associated mass effect on the left anterior brainstem and craniocervical junction, better demonstrated on the prior noncontrast head CT. There is a bilobed 3 mm aneurysm arising from the left V4 segment. No major branch vessel occlusion or high-grade focal stenosis. The major intradural venous sinuses are patent. CTA neck:Great vessel origins: No occlusion or high-grade stenosis. Carotid arteries: No occlusion or high-grade stenosis. Vertebral arteries: Mild to moderate stenosis of the proximal right vertebral artery. Left vertebral artery is dominant. No fracture or suspicious osseous lesion. Cervicalsoft tissues are unremarkable. Scarring of the lung apices. 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 The findings were discussed with Dr. DONNA SABILLON MD on 02/05/2020 5:32 PM. Signed: Charlotte Hewitt Verified Date/Time: 02/05/2020 17:37:03 RAD, CHEST, 1 VIEW, NON [id number] 17:10:00Reason for exam:->NEUROLOGIC PROBLEMShould this be performed at the bedside?->YesFINAL REPORT TECHNIQUE: Frontal view of the chest. INDICATION: 64-year-old woman with neurologic problem. COMPARISON: None. FINDINGS: LINES/TUBES: Endotracheal tube terminates 4.2 cm above the faizan. LUNGS: No consolidation or pulmonary edema. PLEURA: Small left pleural effusion. No pneumothorax. HEART AND MEDIASTINUM: The cardiomediastinal silhouette is within normal limits.Atherosclerotic calcifications in the thoracic aorta. SOFT TISSUES AND BONES: Unremarkable. IMPRESSION:Lines/tubes as above. Small left pleural effusion. Signed: Radha Ferrara MDReport Verified Date/Time: 02/05/2020 17:10:31 Reading Location: [facility] C013Y CT Body Reading Room TROPONIN [id number] 16:47:00 Test Item Value Reference Range Comments TROPONIN I (BEAKER) (test code = 397) 0.04 ng/mL 0.00-0.03 Troponin I (TnI) levels must be interpreted in the context of the presenting symptoms and the clinical findings. Elevated TnI levels indicate myocardial damage, but are not specific for ischemic heart disease. Elevated TnI levels are seen in patients with other cardiac conditions (including myocarditis and congestive heart failure), and slight TnI elevations occur in patients with other conditions, including sepsis, renal failure, acidosis, acute neurological disease, and persistent tachyarrhythmia.Lens Grinder ID - ROSIANGPT/[id number] 16:41:00 Test Item Value Reference Range Comments PROTIME (BEAKER) (test code = 759) 13.2 seconds 11.9-14.2 INR (BEAKER) (test code = 370) 1.0 <=5.9 PARTIAL THROMBOPLASTIN TIME (BEAKER) (test code 27.7 seconds 22.5-36.0 = 760) Effective 03/25/2019: PT Reference Range ChangeNew: 11.9-14.2 Previous: 11.7- 14.7RECOMMENDED COUMADIN/WARFARIN INR THERAPY RANGESSTANDARD DOSE: 2.0-3.0 Includes: PROPHYLAXIS for venous thrombosis, systemic embolization; TREATMENT for venous thrombosis and/or pulmonary embolus.HIGH RISK: Target INR is2.5-3.5 for patients wiht mechanical heart valves.BASIC METABOLIC [id number] 16:40:00 Test Item Value Reference Range Comments SODIUM (BEAKER) (test code = 140 meq/L 136-145 381) POTASSIUM (BEAKER) (test 3.8 meq/L 3.5-5.1 Specime n moderately hemolyzed code = 379) CHLORIDE (BEAKER) (test code 105 meq/L 98-107 = 382) CO2 (BEAKER) (test code = 24 meq/L 22-29 355) BLOOD UREA NITROGEN (BEAKER) 13 mg/dL 7-21 (test code = 354) CREATININE (BEAKER) (test 0.78 mg/dL 0.57-1.25 Specim en moderately hemolyzed code = 358) GLUCOSE RANDOM (BEAKER) 217 mg/dL 70-105 (test code = 652) CALCIUM (BEAKER) (test code 8.7 mg/dL 8.4-10.2 = 697) EGFR (BEAKER) (test code = INSUF FICIENT CLINICAL DATA TO 1092) CALCULATE ESTIMA CHARLES GFR. Lens Grinder ID - ROSIANGCBC W/PLT COUNT & AUTO [id number] 16:29:00 Test Item Value Reference Range Comments WHITE BLOOD CELL COUNT (BEAKER) (test code = 15.1 K/ L 3.5 -10.5 775) RED BLOOD CELL COUNT (BEAKER) (test code = 761) 4.00 M/ L 3.93-5.22 HEMOGLOBIN (BEAKER) (test code = 410) 12.5 GM/DL 11.2-15.7 HEMATOCRIT (BEAKER) (test code = 411) 37.6 % 34.1-44.9 MEAN CORPUSCULAR VOLUME (BEAKER) (test code = 94.0 fL 79 .4-94.8 753) MEAN CORPUSCULAR HEMOGLOBIN (BEAKER) (test code 31.3 pg 25.6-32.2 = 751) MEAN CORPUSCULAR HEMOGLOBIN CONC (BEAKER) (test 33.2 GM/DL 32.2-35.5 code = 752) RED CELL DISTRIBUTION WIDTH (BEAKER) (test code 13.0 % 11.7-14.4 = 412) PLATELET COUNT (BEAKER) (test code = 756) 244 K/CU MM 150-45 0 MEAN PLATELET VOLUME (BEAKER) (test code = 754) 9.7 fL 9.4-12.3 NUCLEATED RED BLOOD CELLS (BEAKER) (test code = 0 /100 WBC 0-0 413) NEUTROPHILS RELATIVE PERCENT (BEAKER) (test code 77 % = 429) LYMPHOCYTES RELATIVE PERCENT (BEAKER) (test code 15 % = 430) MONOCYTES RELATIVE PERCENT (BEAKER) (test code = 5 % 431) EOSINOPHILS RELATIVE PERCENT (BEAKER) (test code 1 % = 432) BASOPHILS RELATIVE PERCENT (BEAKER) (test code = 0 % 437) NEUTROPHILS ABSOLUTE COUNT (BEAKER) (test code = 11.62 K/ L 1.56-6.13 670) LYMPHOCYTES ABSOLUTE COUNT (BEAKER) (test code = 2.25 K/ L 1.18-3.74 414) MONOCYTES ABSOLUTE COUNT (BEAKER) (test code = 0.82 K/ L 0 .24-0.36 415) EOSINOPHILS ABSOLUTE COUNT (BEAKER) (test code = 0.21 K/ L 0.04-0.36 416) BASOPHILS ABSOLUTE COUNT (BEAKER) (test code = 0.04 K/ L 0 .01-0.08 417) IMMATURE GRANULOCYTES-RELATIVE PERCENT (BEAKER) 1 % 0-1 (test code = 2801) CT, BRAIN/STROKE [id number] 16:13:00Reason for exam:->loss of consciousnessWhat is the patient's sedation requirement?->No SedationFINAL REPORT CT, BRAIN/STROKE PROTOCOL INDICATION: Confusion/delirium, altered LOC, unexplainedloss of consciousness TECHNIQUE: Noncontrast axial imaging was obtained from the vertex to the skull base. Axial images were reconstructed using a bone algorithm. DOSE REDUCTION: Dose m odulation, iterative reconstruction, and/or weight-based adjustment of the mA/kV was utilized to reduce the radiation dose to as low as reasonably achievable. COMPARISON: None. FINDINGS: Intracranial: There is extensive subarachnoid hemorrhage filling the basal cisterns and extending throughout the scratch finisher niocervical junction. There is mild mass effect upon the left anterior brainstem and proximal cervical cord. There is extension into the fourth ventricle. No upstream hydrocephalus. No evidence of acute territorial infarct. Osseous structures: No fracture. No suspicious lesion. Paranasal sinuses and mastoid air cells: Mild mucosal thickening throughout the paranasal sinuses. Mastoids are clear. Orbital contents: Globes are intact. IMPRESSION: Diffuse subarachnoid hemorrhage filling the basal cisterns and extending into the fourth ventricle. Mild mass effect upon the left anterior brainstem and craniocervical junction. The findings were discussed with Dr. DONNA SABILLON MD on 02/05/20 20 4:10 PM. Signed: Charlotte Hewitt Verified Date/Time: 02/05/2020 16:13:01
--- OUTSIDE RECORDS SUMMARY | 2020-02-22 14:56 | XMS REPORT | Encounter Summary ---
:1955 Author Care Team Providers Name Role Phone Corin Dyer CRICKET Primary Care Provider [phone] [employer] Tooling Engineer [phone] Reason for Visit wellness exam Instructions 1. Adult health examination lipid panel, serum CBC w/ auto diff CMP, serum or plasma TSH, serum or plasma urinalysis, complete 2. Screening for osteoporosis unlisted imaging order - d exa bone densitometry 3. Screening mammography MAMMO, screening, digital, bilateral 4. Fatigue 5. Elevated blood-pressure readi ng without diagnosis of hypertension Discussion Note RTC for any other concerns; grief counsellor ed on diet and exercise Patient educational handouts: No information available. Plan of Care Patient Instructions ensure adequate rest, hydration and nutrition; monitor blood pressure at home and keep log Reminders Provider Appointments None recorded. Lab Lipid Panel, [place] Serum 08/10/2019 [facility] (Lab) CBC W/ Auto [place] Diff 08/10/2019 [facility] (Lab) CMP, Serum or [place] Plasma 08/10/2019 [facility] (Lab) TSH, Serum or [place] Plasma 08/10/2019 [facility] (Lab) Urinalysis, [place] Complete 08/10/2019 [facility] (Lab) Referral None recorded. Procedures None recorded. Surgeries None recorded. Imaging MAMMO, [place] Screening, Digital, 08/10/2019 [facility] (Scheduli ng) Unlisted [place] Imaging Order 08/10/2019 [facility] (Scheduli ng) Medications Name Start Date Claritin 10 mg tablet Take 1 tablet every day by oral route. fluticasone propionate 50 mcg/actuation nasal spray,londono spension USE ONE SPRAY IN EACH NOSTRIL TWICE DAILY Medications Administered None recorded. Vitals Height Weight BMI Blood Pressure 63 in 138 lbs 24.4 kg/m2 146/99 mm[Hg] Results Lab Results None recorded. Allergies Code Code System Name Reaction Severity Status Onset NKDA Problems Name Status Onset Date Source Impacted Cerumen Active Encounter Fluid Level behind Tympanic Membrane Active Encounter Eustachian Tube Disorder Active Encount er Upper Respiratory Infection Active Enco unter Sinusitis Active Encounter Seasonal Allergic Rhinitis Active Encou nter Ganglion/synovial Cyst - Hand Active En counter Mammography Abnormal Active Encounter Elevated Blood Pressure Active Encounte r Procedures Date Name Performed by 10/28/2013 Colonoscopy Information not avai lable 10/28/1983 Hysterectomy Information not avai lable 10/28/1982 Caesarean Section Information not avai lable 10/28/1969 Tonsillectomy Information not avai lable 08/10/2019 MAMMO, Screening, Digital, Bilateral [facility] (Scheduling) [address] [place] [address] (Work [address]) 08/10/2019 Unlisted Imaging Order [facility] (Scheduling) [address] [place] [address] (Work Place) Vaccine List Vaccine Type influenza, injectable, quadrivalent 09/04/2016 08/12/2017 07/23/2019 influenza, injectable, quadrivalent, pre servative free 09/13/20150.5 mL influenza, recombinant, quadrIvalent,inj ectable, preservative free 08/05/20180.5 mL pneumococcal conjugate PCV 13 07/23/2019 pneumococcal polysaccharide PPV23 10/28/2011 zoster 05/11/2014 Social History Tobacco Smoking Status Never Smoker Past Encounters 08/10/2019 Adult Health Examination; Screening for Osteoporosis; Screening Mammography; Fatigue; Elevated Blood-pressure Reading without Diagnosis of Hypertension Corin Qureshi SENIOR EXECUTIVE COMPENSATION ANALYST: [address] [place] [address] [address], [place] [address], Ph. History of Present Illness Note: pt to clinic for annual check up exam; she is needing labs and mammo order; denies cp, sob, edema; blood pressure elevated when in clinic setting; when pt at home blood pressure 120s-130s/70s Review of Systems General Adult ROS Reported By: Patient Constitutional: Constitutional: no fever Cardiovascular: Cardiovascular: no chest devin n, no palpitations Respiratory: Respiratory: no cough, no wh eezing, no shortness of breath Gastrointestinal: Gastrointestinal: no abdomin al pain, no vomiting, no diarrhea Musculoskeletal: Musculoskeletal: no swelling in the extremities Neurologic: Neurologic: no weakness, no numbness, no dizziness, no headaches Endocrine: Endocrine: no fatigue Physical Exam Brian Brief Adult Exam - M/F Reported By: Patient Constitutional: General Appearance: healthy- appearing, well-nourished, well-developed. Level of Dis tress: NAD. Ambulation: ambulating normally Psychiatric: Mental Status: active and al ert Lungs: Auscultation: breath sounds normal Cardiovascular: Heart Auscultation: RRR, nor mal S1, normal S2, no murmurs. Neck vessels: no carotid bruits Abdomen: Bowel Sounds: normal. Inspec tion and Palpation: soft, non-distended, no tenderness, no guarding Musculoskeletal: Edema absent
[2020-02-22] MEDS ORDERED: ALBUTEROL 2.5 MG/3 ML NEB SOL NEB PRN (16:14)
[2020-02-22] MEDS ORDERED: IPRATROPIUM BROM 0.5MG/2.5ML NEB PRN (16:15)
[2020-02-22] MEDS ORDERED: niMODipine 30 MG CAP PO SCH (17:00)
[2020-02-22 17:16] LABS: Urine Appearance CLOUDY; Urine Bilirubin NEGATIVE (NEG); Urine Blood 1+ (NEG); Urine Color YELLOW; Urine Glucose NEGATIVE (NEG); Urine Protein NEGATIVE (NEG); Urine pH 6.5 (5.0-7.0)
[2020-02-22] MEDS ORDERED: niMODipine 30 MG CAP PO PRN (17:23)
[2020-02-22] MEDS ORDERED: ACETYLCYST 20% 4 ML VIAL IH PRN (17:28)
[2020-02-22 17:29] LABS: Urine Bacteria >50 /HPF (<20); Urine Culture Reflex Order NOT NEEDED; Urine Mucus 2+ /HPF (NONE SEEN)
[2020-02-22] MEDS: CEPHALEXIN 500 MG CAP PO SCH ×2 (18:19→23:30)
[2020-02-22] MEDS: SODIUM CHLORIDE 1 GM TAB PO SCH (18:19)
[2020-02-22] MEDS: NYSTATIN 500,000 UNIT/5 ML UDC PO SCH ×2 (18:19→21:54)
[2020-02-22] MEDS ORDERED: ACETYLCYST 20% 4 ML VIAL IH SCH (20:00)
[2020-02-22] MEDS: carvediloL 12.5 MG TAB PO SCH (21:54)
[2020-02-23] MEDS: CEPHALEXIN 500 MG CAP PO SCH ×3 (05:41→16:54)
[2020-02-23 06:12] LABS: Absolute Lymphocytes (CBC) 1.2 K/uL (0.7-4.9); Basophils % 0.4 % (0-1.3); Hematocrit 30.9 % (36.0-45.0); Lymphocytes % 12.1 % (15.3-44.8); MPV 6.9 fL (7.6-11.3); RBC Red Blood Cell Count 3.32 M/uL (3.86-4.86)
[2020-02-23 06:35] LABS: Albumin 2.7 g/dL (3.4-5.0); BUN Blood Urea Nitrogen 13 mg/dL (7-18); Bicarbonate 27 mmol/L (21-32); Glucose Level 102 mg/dL (74-106); Magnesium 2.2 mg/dL (1.8-2.4); Potassium 3.4 mmol/L (3.5-5.1); Prealbumin 21.4 mg/dL (20-40); Sodium Level 143 mmol/L (136-145)
[2020-02-23] MEDS: ENOXAPARIN 40 MG/0.4 ML SQ SCH (07:31)
[2020-02-23] MEDS: ACETAMINOPHEN 325 MG TABLET PO PRN ×2 (07:32→20:20)
[2020-02-23] MEDS: SODIUM CHLORIDE 1 GM TAB PO SCH ×3 (07:34→16:54)
[2020-02-23] MEDS: modafiniL 100 MG TAB PO SCH (07:34)
[2020-02-23] MEDS: NYSTATIN 500,000 UNIT/5 ML UDC PO SCH ×4 (07:34→20:21)
[2020-02-23] MEDS: TAMSULOSIN 0.4 MG SR CAP PO SCH (07:35)
[2020-02-23] MEDS: AMANTADINE 100 MG CAP PO SCH (07:35)
[2020-02-23] MEDS: carvediloL 12.5 MG TAB PO SCH ×2 (07:35→20:00)
[2020-02-23] MEDS: ONDANSETRON 4 MG (ODT) TAB PO PRN (12:46)
[2020-02-23] MEDS: DULOXETINE 20 MG CAP PO SCH (13:55)
[2020-02-23] MEDS: MAGNESIUM OXIDE 400 MG TAB PO SCH (13:56)
[2020-02-23] MEDS: LIDOCAINE 4% PATCH TOP SCH (13:56)
--- NOTE | 2020-02-23 14:09 | RAD REPORT ---
EXAM DESCRIPTION: RAD - Barium Swallow Modified - 02/23/2020 1:56 pm CLINICAL HISTORY: CVA, aspiration, cough FINDINGS: Aspiration: cough with Tsp thin Pharyngeal residue: Moderate to significant in the Vallecular and Pyriforms There is reduced lingual coordination in A-P tranfer (approx 6-7 sec). There is reduced base of tongue retraction, reduced hyolaryngeal elevation, and reduced contraction o f the posterior pharyngeal wall. There was aspiration with tsp of thin liquid. There was no penetra tion or aspiration of nectar, honey, puree, mechanical soft and solid. There was moderate to signifi cant residue in the vallecula and pyriforms. Liquid was assisted in minimizing residue. Finial pureed bolus passed into the lower esophagus without incident. Fluoroscopy time 4.4 minutes Twenty-five fluoroscopic spot series obtained
--- NOTE | 2020-02-23 14:50 | R.HP ---
FACILITY: [facility] ENCOUNTER DATE AND TIME: 02/23/2020 14:44 (CDT) MR#: [id number] NAME JEREMY GROSS ADDRESS: [address] [place] [address] CITY: [place] [address] [id number] PHONE: DATE OF : 1955 AGE: 64 SSN# [id number] GENDER: Female DEXTERITY Right-handed MARITAL STATUS RACE White PRE-HOSPITAL LIVING SETTING 01 - Home (private home/apt. board/care, assisted living, [facility], transitional living) PRE-HOSPITAL LIVING WITH Family/Relatives ENCOUNTER PHYSICIAN: Dr. Florentin Hoover M.D. REFERRING DOCTOR: MARGARITO FARRELL DATE OF ADMISSION: 02/22/2020 14:50 (CDT) REFERRING FACILITY Acute care hospital HOME TYPE AND DETAILS: Type of home: single family house # of levels in the residence: 1 # of steps within the residence: 0 # of steps to enter the residence: 0 ONSET DATE: 02/05/2020 PRIMARY DIAGNOSIS-RELATED SURGERIES: No surgeries related to the primary diagnosis were performed. HISTORY OF PRESENT ILLNESS (HPI): Pt. is a 64 yo Right-handed white female. On 02/05/2020 she was admitted to Acute care hospital with diagnosis Subarachnoid hemorrhage. Her impairment category is Stroke 01 - Left Body (Right Brain) (01.1). Pre-morbidly, Pt. was independent/mod-I in Transfers Control, Locomotion, and Self-Care; and she had good Balance, Safety Awareness, Social Cognition, Sphincter Control, and Communication. Currently, she has deficits of Transfers Control, Balance, Safety Awareness, and Self-Care. Pt. is now referred to [facility] for acute in-patient rehabilitation in order to maximize patient's functional independence in activities of daily living, strength, ROM, and mobi lity. Patient has realistic goal of being discharged at assistance level 6-Alcira to reside at Home with Fam angelica/Relatives. MEDICATION ALLERGIES: No Known Drug Allergies (NKDA) ENVIRONMENTAL ALLERGIES: - Substance Allergies None Known - Other Allergies None Known PAST MEDICAL HISTORY: None FAMILY HISTORY: Family history is not contributory. SOCIAL HISTORY: - Home Living Family/Relatives REVIEW OF SYSTEMS: - Gen No Chills Fatigue No Fever - Eyes No Double Vision No itchiness - ENMT Difficulty Swallowing - CVS No Chest Discomfort No Chest Pain Fatigue No Weight Gain - Resp No Cough No Shortness of Breath - GI Continent No Abdominal Pain No Constipation No Diarrhea - Continent No Kidney Pain No Painful Urination No Urinary Urgency - MSK No Joint Pain Muscle Cramps Stiffness - Skin No Itching No Rash No Suspicious Lesions - Neuro Coordination Difficulty No Difficulty with Concentration Memory Loss No Seizures Weakness - Psych No Anxiety No Depression No HIV Exposure No Persistent Infections No Seasonal Allergies - Endo No Cold/Heat Intolerance No Excessive Hunger No Excessive Thirst No Excessive Urination PHYSICAL EXAM - Gen Alert and awake Lying in bed No apparent distress Oriented to: person, time, and place - Skin No skin breakdown. Normacephalic - Eyes No abnormalities - ENMT No abnormalities - Neck No abnormalities - CVS RRR - Resp Clear to auscultation - Abd Soft - GI Non distended Deferred - No abnormalities - Ext No significant edema - MSK 4+/5 weakness in left upper and lower extremity - Neuro 4/5 strength left upper and lower extremities. - Psych No abnormalities VITAL SIGNS Temperature: 98 SBP/DBP: 160/94 Pulse 89 Resp: 17 NURSING: - Shower allowing shower - Bladder care per protocol - Skin care per protocol PRECAUTIONS: - Weight Bearing Precaution WBAT left LE ACTIVITIES OOB only with supervision QI SCORES: - Self-Care A. Eating 04-Supervision or touching assistance B. Oral hygiene 04-Supervision or touching assistance C. Toileting hygiene 03-Partial/moderate assistance E. Shower/bathe self 03-Partial/moderate assistance F. Upper body dressing 03-Partial/moderate assistance G. Lower body dressing 03-Partial/moderate assistance H. Putting on/taking off footwear 88-Not attempted due to medical condition or safety concerns - Mobility A. Roll left and right 03-Partial/moderate assistance B. Sit to lying 03-Partial/moderate assistance C. Lying to sitting on side of bed 03-Partial/moderate assistance D. Sit to stand 03-Partial/moderate assistance E. Chair/hgr-rb-prhpl transfer 03-Partial/moderate assistance F. Toilet transfer 03-Partial/moderate assistance G. Car transfer 88-Not attempted due to medical condition or safety concerns I. Walk 10 feet 88-Not attempted due to medical condition or safety concerns J. Walk 50 feet with two turns 88-Not attempted due to medical condition or safety concerns K. Walk 150 feet 88-Not attempted due to medical condition or safety concerns L. Walking 10 feet on uneven surfaces 88-Not attempted due to medical condition or safety concerns M. 1 step (curb) 88-Not attempted due to medical condition or safety concerns N. 4 steps 88-Not attempted due to medical condition or safety concerns O. 12 steps 88-Not attempted due to medical condition or safety concerns P. Picking up object 01-Dependent R. Wheel 50 feet with two turns 88-Not attempted due to medical condition or safety concerns S. Wheel 150 feet 88-Not attempted due to medical condition or safety concerns - Bladder and Bowel Bladder continence 0-Always continent Bowel continence 0-Always continent - Endurance Poor - Balance Poor - Safety Awareness Poor CURRENT FUNC. DEFICITS: Self-Care, Mobility, Endurance, Balance, and Safety Awareness MEDICATIONS: - Other See attached MAR (Medication Administration Record) ASSESSMENT: Pt. is a 64 yo Right-handed white female.On 02/05/2020 she was admitted to [facility] hospital with d iagnosis Subarachnoid hemorrhage.Her impairment category is Stroke 01 - Left Body (Right Brain) (01. 1).Pre-morbidly, Pt. was independent/mod-I in Transfers Control, Locomotion, and Self-Care; and she h ad good Balance, Safety Awareness, Social Cognition, Sphincter Control, and Communication.Currently, she has deficits of Transfers Control, Balance, Safety Awareness, and Self-Care.Pt. is now referred t [facility] for acute in-patient rehabilitation in order to maximize patient' s functional independence in activities of daily living, strength, ROM, and mobility.- Rehab Goal Patient has realistic goal of being discharged at assistance level 6-Alcira to reside at Home with Fam angelica/Relatives. for Dementia, TBI, Stroke, or others - Physical Therapy Gait dysfunction - to improve, our physical therapists will perform initial evaluation of pt's status upon admission and devise an individualized program for Gait Training, and Wheel Chair mobility Inability to transfer - to improve, our physical therapists will perform initial evaluation of pt's s tatus upon admission and devise an individualized program for Bed mobility Need for home safety evaluation - to improve, our physical therapists will perform initial evaluation of pt's status upon admission and devise an individualized program for Home Evaluation Need in caregiver upon discharge - to improve, our physical therapists will perform initial evaluatio n of pt's status upon admission and devise an individualized program for Caregiver Training Edema - to improve, our physical therapists will perform initial evaluation of pt's status upon admi ssion and devise an individualized program for Elevation Training, and Lymphedema Therapy New precaution - to improve, our physical therapists will perform initial evaluation of pt's status u christina admission and devise an individualized program for Patient precaution education Poor balance - to improve, our physical therapists will perform initial evaluation of pt's status upo n admission and devise an individualized program for Balance Training Weakness - to improve, our physical therapists will perform initial evaluation of pt's status upon ad mission and devise an individualized program for Aquatic Therapy, Neuromuscular Reeducation, and Stre ngthening Achieving independence - to improve, our physical therapists will perform initial evaluation of pt's status upon admission and devise an individualized program for Community Reintegration Activities - Occupational Therapy ADL deficits - to improve, our occupation therapists will perform initial evaluation of pt's status u christina admission and devise an individualized program for Bathing, Bed mobility, Community Reintegration , Cooking, Dressing, Eating, Fine Motor Skills, Grooming, Homemaking, Kitchen Mobility, Laundry, Lacy ent Education, Safety Awareness, Splinting - Positioning, Transfers(Toilet, Tub, Shower), and Wheel C hair Management Need for home care aide - to improve, our occupation therapists will perform initial evaluation of pt's s tatus upon admission and devise an individualized program for Caregiver Training Weakness - to improve, our occupation therapists will perform initial evaluation of pt's status upon admission and devise an individualized program for Aquatic Therapy, Balance, Endurance, UE ROM, and U E strengthening MEDICAL PLAN: - Diet Type Start Regular - Diet - Liquid Texture Start Regular - Tube Feed Start N/A - Bladder care per protocol - Weight Bearing Precaution WBAT left LE - Skin care per protocol - Other See attached MAR (Medication Administration Record) - Diet - Solid Texture Regular - Shower shower DISCHARGE PLAN: - Estimated Length of Stay (days) 17. - Consensus on plan Discharge plan has been discussed with primary caregiver. Patient/Family is in agreement with the nereida n. Primary caregiver is in agreement with the plan. - Patient/Family Goals Return home independently. - Planned Living Setting Upon Discharge Home, to live with Family/Relatives. SIGNATURE PANEL: (CDT)
--- NOTE | 2020-02-23 14:53 | PAPE ---
PATIENT: [facility] MR# [id number] REFERRING DOCTOR MARGARITO FARRELL EVALUATION DATE AND TIME 02/23/2020 14:49 (CDT) NAME JEREMY GROSS DATE OF 1955 AGE 64 PHONE SSN# [id number] GENDER female EVALUATING PHYSICIAN Dr. Florentin Hoover M.D. ADMISSION DIAGNOSIS: Subarachnoid hemorrhage ONSET DATE 02/05/2020 POST-ADMISSION FUNCTIONAL/MEDICAL STATUS: - Walking Same score based on distance walked: 0(N/A) STATUS CHANGE EVALUATION: No change in Functional or Medical Status is identified compared with Pre-Admission screening. PATIENT NEEDS CLOSE MEDICAL SUPERVISION BY A REHABILITATION PHYSICIAN FOR: Coordination of Treatment Team PATIENT REQUIRES 24X7 REHAB NURSING FOR MEDICAL AND FUNCTIONAL MGT. OF THE FOLLOWING DEFICITS: Disease Management Medication Management Patient/Family Education Providing Safe Environment PATIENT REQUIRES INTENSIVE, COORDINATED INTERDISCIPLINARY APPROACH TO REHAB: Arranging Home Equipment/Services Discharge Planning Family Intervention/Training Garment Fitter/Case Management LIST OF IDENTIFIED AND POTENTIAL PROBLEMS: Alteration in leisure activities Infection, Actual or Potential Mobility Impaired Pain, Alteration in Comfort Self Care Deficit Skin Integrity, Actual or Potential Urinary Tract Infection (UTI), Actual or Potential PATIENT COULD BE AT RISK FOR COMPLICATIONS FROM ADVERSE MEDICAL CONDITIONS DUE TO HIS/HER COMORBIDITI ES AND THE RIGORS OF THE INTENSIVE REHABILLITATION PROGRAM. METHODS OR INTERVENTIONS TO AVOID COMPLIC ATIONS INCLUDE: - Bleeding Stroke patients assessed for lethargy or change in status. - Infection Clinical staff to assess and manage the signs and symptoms of infection including fever, redness, war mth, etc. - Urinary Tract Infection - Aspiration Clinical staff will assess and manage coughing, drooling, congestion. - Falls Patient will be evaluated for Fall Precautions and will be placed on Fall Precautions as indicated pe r protocol. - Skin Breakdown Nursing will assess skin daily using assessment tool and will place on Skin Breakdown Precautions as indicated per protocol. - Pain Clinical staff may employ non-medication methods such as massage, distraction, decrease stimulus, etc . as needed. Clinical staff will assess patient's pain level every shift per protocol to assess and e nsure pain management effectiveness. Medications will be given and the pain level re-assessed. PRELIMINARY PLAN OF CARE: - Physical Therapy Patient needs Physical Therapy for a daily minimum of 1.5 hours at least 5 out of 7 days, to improve: Mobility, Strengthening, Transfers, Stretching, ROM, Endurance, Ability to manage stairs, Gait, and Balance. - Speech Therapy Patient needs Speech Therapy for a daily minimum of 0.5 hours at least 5 out of 7 days, to improve: S wallowing, Cognition, Language Skills, and Compensatory Strategies. - Rehabilitation Nursing Patient requires 24x7 Rehabilitation Nursing for: Pain Issues, Identifying and preventing risk factor s, Monitoring and reporting current medical conditions, Assisting with ambulation and transfer, Jacob ting with all ADL-s, Teaching patients about disease process and medications, Family teaching, Provid ing safe environment, Bowel and Bladder Issues, Skin Integrity, and Medication Management. Patient needs Garment Fitter and/or Case Management for: Discharge Planning, Arranging Home Equipmen t or Services, and Family Interventions. - Dietary and Nutrition Services Patient needs Dietary and Nutrition Services for: Adequate Nutrition, Nutritional Supplements, and Nu tritional Education. - Occupational Therapy Patient needs Occupational Therapy for a daily minimum of 1.5 hours at least 5 out of 7 days, to impr ove Activities of Daily Living, including: Eating, Grooming, Bathing, Dressing, Toileting, Toilet Tra nsfers, Community Reintegration, Higher functional activities, Adaptive Equipment, Splinting, Househo ld Tasks, and Other activities as determined. QI SCORES: - Self-Care A. Eating 04-Supervision or touching assistance B. Oral hygiene 04-Supervision or touching assistance C. Toileting hygiene 03-Partial/moderate assistance E. Shower/bathe self 03-Partial/moderate assistance F. Upper body dressing 03-Partial/moderate assistance G. Lower body dressing 03-Partial/moderate assistance H. Putting on/taking off footwear 88-Not attempted due to medical condition or safety concerns - Mobility A. Roll left and right 03-Partial/moderate assistance B. Sit to lying 03-Partial/moderate assistance C. Lying to sitting on side of bed 03-Partial/moderate assistance D. Sit to stand 03-Partial/moderate assistance E. Chair/uzq-xt-mqcpf transfer 03-Partial/moderate assistance F. Toilet transfer 03-Partial/moderate assistance G. Car transfer 88-Not attempted due to medical condition or safety concerns I. Walk 10 feet 88-Not attempted due to medical condition or safety concerns J. Walk 50 feet with two turns 88-Not attempted due to medical condition or safety concerns K. Walk 150 feet 88-Not attempted due to medical condition or safety concerns L. Walking 10 feet on uneven surfaces 88-Not attempted due to medical condition or safety concerns M. 1 step (curb) 88-Not attempted due to medical condition or safety concerns N. 4 steps 88-Not attempted due to medical condition or safety concerns O. 12 steps 88-Not attempted due to medical condition or safety concerns P. Picking up object 01-Dependent R. Wheel 50 feet with two turns 88-Not attempted due to medical condition or safety concerns S. Wheel 150 feet 88-Not attempted due to medical condition or safety concerns - Bladder and Bowel Bladder continence 0-Always continent Bowel continence 0-Always continent - Endurance Poor - Balance Poor - Safety Awareness Poor POTENTIAL FUNCTIONAL GOALS FOR PATIENT TO ACHIEVE BY DISCHARGE: - Safety Precaution Patient will remain free from falls or injury at time of discharge. - Bed Mobility Patient will perform bed mobility at 4-Ridge level of assistance. - Transfers Patient will complete transfers from bed to chair at 4-Ridge level of assistance. - Mobility Patient will ambulate 150 ft with 4-Ridge level of assistance with RW. PATIENT REHAB POTENTIAL Zelda GROSS is able and expected to receive 3 hours of individualized therapy daily on at least 5 of ever y 7 days Zelda PERRYs prognosis for significant practical improvement within a reasonable period of time appears Good Expected level of measurable improvement will be of a practical value to Zelda GROSS's functional capacit y or adaptations to impairments Has a viable Discharge Plan Medically appropriate; condition is sufficiently stable to participate in intensive rehab program DISCHARGE PLAN: - Estimated Length of Stay (days) 17. - Consensus on plan Discharge plan has been discussed with primary caregiver. Patient/Family is in agreement with the nereida n. Primary caregiver is in agreement with the plan. - Patient/Family Goals Return home independently. - Planned Living Setting Upon Discharge Home, to live with Family/Relatives. CONCLUSION ON REHABILITATION NECESSITY: I have evaluated patient's pre-admission functional status and, comparing it to the patient's post-ad mission functional status now, I conclude that the pre-admission assessment was accurate. Patient's c ondition on admission supports the medical necessity of admission to [facility]. It is safe to proceed with patient's therapy program. SIGNATURE PANEL: (CDT)
[2020-02-23] MEDS ORDERED: IPRATROPIUM BROM 0.5MG/2.5ML NEB PRN (18:00)
[2020-02-23] MEDS ORDERED: ACETYLCYST 20% 4 ML VIAL IH PRN (18:00)
[2020-02-24] MEDS: CEPHALEXIN 500 MG CAP PO SCH ×3 (00:19→12:52)
[2020-02-24] MEDS: ENOXAPARIN 40 MG/0.4 ML SQ SCH (06:41)
[2020-02-24] MEDS: carvediloL 12.5 MG TAB PO SCH (08:00)
[2020-02-24] MEDS: ACETAMINOPHEN 325 MG TABLET PO PRN ×2 (09:04→20:27)
[2020-02-24] MEDS: LIDOCAINE 4% PATCH TOP SCH (09:06)
[2020-02-24] MEDS: NYSTATIN 500,000 UNIT/5 ML UDC PO SCH ×4 (09:07→21:00)
[2020-02-24] MEDS: AMANTADINE 100 MG CAP PO SCH (09:07)
[2020-02-24] MEDS: SODIUM CHLORIDE 1 GM TAB PO SCH ×3 (09:08→17:28)
[2020-02-24] MEDS: TAMSULOSIN 0.4 MG SR CAP PO SCH (09:08)
[2020-02-24] MEDS: modafiniL 100 MG TAB PO SCH (09:08)
[2020-02-24] MEDS: MAGNESIUM OXIDE 400 MG TAB PO SCH (09:09)
[2020-02-24] MEDS: DULOXETINE 20 MG CAP PO SCH (09:09)
[2020-02-24] MEDS ORDERED: ALBUTEROL 2.5 MG/3 ML NEB SOL NEB PRN (15:00)
[2020-02-24] MEDS ORDERED: NA CHLORIDE 0.9% 1,000 ML IV SCH (15:00)
--- NOTE | 2020-02-24 16:59 | R.PN ---
ENCOUNTER DATE AND TIME: 02/24/2020 16:45 (CDT) NAME JEREMY GROSS DATE OF : 1955 DATE OF ADMISSION: 02/22/2020 14:50 (CDT) Subarachnoid hemorrhageCHIEF COMPLAINT: Subarachnoid hemorrhage with dense left upper extremity weakness, depression SUBJECTIVE: Pt denied any depression. Pt denied any Shortness of Breath. Her dense left upper extremity weakness is unchanged at 0/5. Ambulated 150' with contact guard assist ance. She started Cymbalta 20 mg daily for depression after stroke. She has 4% lidoderm patches on he r posterior neck and lower back for chronic pain. WBC 9.6, Hgb 10.5, prealbumin 21.4, UA positive nitrite, 1+ esterase, > 50 bacteria, urine cultures s how 4+ E-Coli sensitive to bactrim. Will give Bactrim DS, bid for 7 days and D/C keflex. VITAL SIGNS Temperature: 98.3 SBP/DBP: 137/80 Pulse 90 Resp: 16 MEDICATION ALLERGIES: No Known Drug Allergies (NKDA) ENVIRONMENTAL ALLERGIES: - Substance Allergies None Known - Other Allergies None Known NURSING: - Shower allowing shower - Bladder care per protocol - Skin care per protocol PRECAUTIONS: - Weight Bearing Precaution WBAT left LE ACTIVITIES OOB only with supervision THERAPIES: - Occupational Therapy Cognitive Retraining. Visual Perceptual Training. - Dietary and Nutrition Adequate Nutrition. Nutritional Education. Nutritional Supplements. - Speech Therapy Cognitive Training. Expressive Language Skills. Memory Strategies. Receptive Language Skills. Speech Intelligibility Training. PHYSICAL EXAM - Gen Alert and awake Lying in bed No apparent distress Oriented to: person, time, and place - Skin No skin breakdown. Normacephalic - Eyes No abnormalities - ENMT No abnormalities - Neck No abnormalities - CVS RRR - Resp Clear to auscultation - Abd Soft - GI Non distended Deferred - No abnormalities - Ext No significant edema - MSK 0/5 weakness in left upper and 4+/5 in left lower extremity - Neuro 4/5 strength left upper and lower extremities. - Psych No abnormalities ASSESSMENT: Pt. is a 64 yo Right-handed white female.On 02/05/2020 she was admitted to [facility] care hospital with d iagnosis Subarachnoid hemorrhage.Her impairment category is Stroke 01 - Left Body (Right Brain) (01. 1).Pre-morbidly, Pt. was independent/mod-I in Transfers Control, Locomotion, and Self-Care; and she h ad good Balance, Safety Awareness, Social Cognition, Sphincter Control, and Communication.Currently, she has deficits of Transfers Control, Balance, Safety Awareness, and Self-Care.Pt. is now referred t [facility] for acute in-patient rehabilitation in order to maximize patient' s functional independence in activities of daily living, strength, ROM, and mobility.- Rehab Goal Patient has realistic goal of being discharged at assistance level 6-Alcira to reside at Home with Fam angelica/Relatives. MDM/PLAN: - Physical Therapy Gait dysfunction - to improve, our physical therapists will perform initial evaluation of pt's statu s upon admission and devise an individualized program for Gait Training, and Wheel Chair mobility Inability to transfer - to improve, our physical therapists will perform initial evaluation of pt's status upon admission and devise an individualized program for Bed mobility Need for home safety evaluation - to improve, our physical therapists will perform initial evaluatio n of pt's status upon admission and devise an individualized program for Home Evaluation Need in caregiver upon discharge - to improve, our physical therapists will perform initial evaluati on of pt's status upon admission and devise an individualized program for Caregiver Training Edema - to improve, our physical therapists will perform initial evaluation of pt's status upon admis raeann and devise an individualized program for Elevation Training, and Lymphedema Therapy New precaution - to improve, our physical therapists will perform initial evaluation of pt's status upon admission and devise an individualized program for Patient precaution education Poor balance - to improve, our physical therapists will perform initial evaluation of pt's status up on admission and devise an individualized program for Balance Training Weakness - to improve, our physical therapists will perform initial evaluation of pt's status upon a dmission and devise an individualized program for Aquatic Therapy, Neuromuscular Reeducation, and Str engthening Achieving independence - to improve, our physical therapists will perform initial evaluation of pt's status upon admission and devise an individualized program for Community Reintegration Activities - Occupational Therapy ADL deficits - to improve, our occupation therapists will perform initial evaluation of pt's status upon admission and devise an individualized program for Bathing, Bed mobility, Community Reintegratio n, Cooking, Dressing, Eating, Fine Motor Skills, Grooming, Homemaking, Kitchen Mobility, Laundry, Pat ient Education, Safety Awareness, Splinting - Positioning, Transfers(Toilet, Tub, Shower), and Wheel Chair Management Need for direct care provider - to improve, our occupation therapists will perform initial evaluation of pt's status upon admission and devise an individualized program for Caregiver Training Weakness - to improve, our occupation therapists will perform initial evaluation of pt's status upon admission and devise an individualized program for Aquatic Therapy, Balance, Endurance, UE ROM, and UE strengthening - Other See attached MAR (Medication Administration Record) - Diet Type Continue Regular - Diet - Liquid Texture Continue Regular - Tube Feed Continue N/A - Bladder care per protocol - Weight Bearing Precaution WBAT left LE - Skin care per protocol - Diet - Solid Texture Continue Regular - Shower allowing shower for Dementia, TBI, Stroke, or others FUNCTIONAL STATUS: UPDATED AT WEEKLY TEAM CONFERENCE - Walking Same score based on distance walked: 0(N/A) FUNCTIONAL STATUS: - Self-Care A. Eating Ridge B. Grooming Ridge C. Bathing modA D. Dressing - Upper Ridge E. Dressing - Lower modA F. Toileting Ridge - Sphincter Control G. Bladder control Alcira H. Bowel control Alcira - Transfers Control I. Bed/Chair/Wheelchair Ridge J. Toilet Ridge K. Tub/Shower Ridge - Locomotion L. Walk/Wheelchair (B) Ridge M. Stairs modA - Communication N. Comprehension (B) sup O. Expression (B) sup - Social Cognition P. Social Interaction sup Q. Problem Solving sup R. Memory sup - Endurance Fair - Balance Fair - Safety Awareness Fair QI SCORES: - Self-Care A. Eating 04-Supervision or touching assistance B. Oral hygiene 04-Supervision or touching assistance C. Toileting hygiene 03-Partial/moderate assistance E. Shower/bathe self 03-Partial/moderate assistance F. Upper body dressing 03-Partial/moderate assistance G. Lower body dressing 03-Partial/moderate assistance H. Putting on/taking off footwear 88-Not attempted due to medical condition or safety concerns - Mobility A. Roll left and right 03-Partial/moderate assistance B. Sit to lying 03-Partial/moderate assistance C. Lying to sitting on side of bed 03-Partial/moderate assistance D. Sit to stand 03-Partial/moderate assistance E. Chair/ovg-wy-sdhqi transfer 03-Partial/moderate assistance F. Toilet transfer 03-Partial/moderate assistance G. Car transfer 88-Not attempted due to medical condition or safety concerns I. Walk 10 feet 88-Not attempted due to medical condition or safety concerns J. Walk 50 feet with two turns 88-Not attempted due to medical condition or safety concerns K. Walk 150 feet 88-Not attempted due to medical condition or safety concerns L. Walking 10 feet on uneven surfaces 88-Not attempted due to medical condition or safety concerns M. 1 step (curb) 88-Not attempted due to medical condition or safety concerns N. 4 steps 88-Not attempted due to medical condition or safety concerns O. 12 steps 88-Not attempted due to medical condition or safety concerns P. Picking up object 01-Dependent R. Wheel 50 feet with two turns 88-Not attempted due to medical condition or safety concerns S. Wheel 150 feet 88-Not attempted due to medical condition or safety concerns - Bladder and Bowel Bladder continence 0-Always continent Bowel continence 0-Always continent - Endurance Poor - Balance Poor - Safety Awareness Poor CURRENT FUNC. DEFICITS: Self-Care, Mobility, Endurance, Balance, and Safety Awareness SIGNATURE PANEL: (CDT)
[2020-02-24] MEDS: POTASSIUM 25 MEQ EFFERV TAB PO SCH (17:26)
[2020-02-24] MEDS: ENSURE PUDDING 4 OZ CUP PO SCH (20:00)
[2020-02-24] MEDS: SMZ./TMP. 800/160 MG TABLET PO SCH (20:27)
[2020-02-24] MEDS: MEGESTROL 40 MG TAB PO SCH (20:27)
[2020-02-24] MEDS: MELATONIN 3 MG TABLET PO PRN (20:28)
[2020-02-24] MEDS: carvediloL 6.25 MG TAB PO SCH (20:28)
[2020-02-25 05:56] LABS: Absolute Lymphocytes (CBC) 1.2 K/uL (0.7-4.9); Basophils % 0.4 % (0-1.3); RBC Red Blood Cell Count 3.03 M/uL (3.86-4.86)
[2020-02-25 06:12] LABS: Albumin 2.6 g/dL (3.4-5.0); BUN Blood Urea Nitrogen 12 mg/dL (7-18); Bicarbonate 29 mmol/L (21-32); Glucose Level 105 mg/dL (74-106); Magnesium 1.9 mg/dL (1.8-2.4); Potassium 3.4 mmol/L (3.5-5.1); Prealbumin 19.8 mg/dL (20-40); Sodium Level 144 mmol/L (136-145)
[2020-02-25] MEDS: POTASSIUM 25 MEQ EFFERV TAB PO SCH (09:22)
[2020-02-25] MEDS: modafiniL 100 MG TAB PO SCH (09:25)
[2020-02-25] MEDS: ACETAMINOPHEN 325 MG TABLET PO PRN ×2 (09:27→17:44)
[2020-02-25] MEDS: ENOXAPARIN 40 MG/0.4 ML SQ SCH (09:28)
[2020-02-25] MEDS: NYSTATIN 500,000 UNIT/5 ML UDC PO SCH ×4 (09:29→20:35)
[2020-02-25] MEDS: SMZ./TMP. 800/160 MG TABLET PO SCH ×2 (09:29→20:37)
[2020-02-25] MEDS: SODIUM CHLORIDE 1 GM TAB PO SCH ×2 (09:29→17:01)
[2020-02-25] MEDS: ENSURE PUDDING 4 OZ CUP PO SCH ×2 (09:30→20:00)
[2020-02-25] MEDS: carvediloL 6.25 MG TAB PO SCH ×2 (09:30→20:37)
[2020-02-25] MEDS: MEGESTROL 40 MG TAB PO SCH ×2 (09:30→20:37)
[2020-02-25] MEDS: AMANTADINE 100 MG CAP PO SCH (09:30)
[2020-02-25] MEDS: DULOXETINE 20 MG CAP PO SCH (09:31)
[2020-02-25] MEDS: MAGNESIUM OXIDE 400 MG TAB PO SCH (09:31)
[2020-02-25] MEDS: TAMSULOSIN 0.4 MG SR CAP PO SCH (09:34)
[2020-02-25] MEDS: LIDOCAINE 4% PATCH TOP SCH ×2 (10:29→10:57)
--- NOTE | 2020-02-25 18:03 | R.PN ---
ENCOUNTER DATE AND TIME: 02/25/2020 17:55 (CDT) NAME JEREMY GROSS DATE OF : 1955 DATE OF ADMISSION: 02/22/2020 14:50 (CDT) Subarachnoid hemorrhageCHIEF COMPLAINT: Subarachnoid hemorrhage with dense left upper extremity weakness, depression SUBJECTIVE: Pt denied any depression. Pt denied any Shortness of Breath. Her dense left upper extremity weakness is unchanged at 0/5. Ambulated 300' with contact guard assist ance using a hemiwalker in her right hand. She started Cymbalta 20 mg daily for depression after stro ke and her mood is improving. She has 4% lidoderm patches on her posterior neck and lower back for ch ronic pain. WBC 6.5, Hgb 9.6, prealbumin 19.8, UA positive nitrite, 1+ esterase, > 50 bacteria, urine cultures sh ow 4+ E-Coli sensitive to bactrim. Will give Bactrim DS, bid for 7 days and D/C keflex. VITAL SIGNS Temperature: 98.7 SBP/DBP: 137/79 Pulse 79 Resp: 14 MEDICATION ALLERGIES: No Known Drug Allergies (NKDA) ENVIRONMENTAL ALLERGIES: - Substance Allergies None Known - Other Allergies None Known NURSING: - Shower allowing shower - Bladder care per protocol - Skin care per protocol PRECAUTIONS: - Weight Bearing Precaution WBAT left LE ACTIVITIES OOB only with supervision THERAPIES: - Occupational Therapy Cognitive Retraining. Visual Perceptual Training. - Dietary and Nutrition Adequate Nutrition. Nutritional Education. Nutritional Supplements. - Speech Therapy Cognitive Training. Expressive Language Skills. Memory Strategies. Receptive Language Skills. Speech Intelligibility Training. PHYSICAL EXAM - Gen Alert and awake Lying in bed No apparent distress Oriented to: person, time, and place - Skin No skin breakdown. Normacephalic - Eyes No abnormalities - ENMT No abnormalities - Neck No abnormalities - CVS RRR - Resp Clear to auscultation - Abd Soft - GI Non distended Deferred - No abnormalities - Ext No significant edema - MSK 0/5 weakness in left upper and 4+/5 in left lower extremity - Neuro 4/5 strength left upper and lower extremities. - Psych No abnormalities ASSESSMENT: Pt. is a 64 yo Right-handed white female.On 02/05/2020 she was admitted to [facility] care hospital with d iagnosis Subarachnoid hemorrhage.Her impairment category is Stroke 01 - Left Body (Right Brain) (01. 1).Pre-morbidly, Pt. was independent/mod-I in Transfers Control, Locomotion, and Self-Care; and she h ad good Balance, Safety Awareness, Social Cognition, Sphincter Control, and Communication.Currently, she has deficits of Transfers Control, Balance, Safety Awareness, and Self-Care.Pt. is now referred t [facility] for acute in-patient rehabilitation in order to maximize patient' s functional independence in activities of daily living, strength, ROM, and mobility.- Rehab Goal Patient has realistic goal of being discharged at assistance level 6-Alcira to reside at Home with Fam angelica/Relatives. MDM/PLAN: - Physical Therapy Gait dysfunction - to improve, our physical therapists will perform initial evaluation of pt's statu s upon admission and devise an individualized program for Gait Training, and Wheel Chair mobility Inability to transfer - to improve, our physical therapists will perform initial evaluation of pt's status upon admission and devise an individualized program for Bed mobility Need for home safety evaluation - to improve, our physical therapists will perform initial evaluatio n of pt's status upon admission and devise an individualized program for Home Evaluation Need in caregiver upon discharge - to improve, our physical therapists will perform initial evaluati on of pt's status upon admission and devise an individualized program for Caregiver Training Edema - to improve, our physical therapists will perform initial evaluation of pt's status upon admi ssion and devise an individualized program for Elevation Training, and Lymphedema Therapy New precaution - to improve, our physical therapists will perform initial evaluation of pt's status upon admission and devise an individualized program for Patient precaution education Poor balance - to improve, our physical therapists will perform initial evaluation of pt's status up on admission and devise an individualized program for Balance Training Weakness - to improve, our physical therapists will perform initial evaluation of pt's status upon a dmission and devise an individualized program for Aquatic Therapy, Neuromuscular Reeducation, and Str engthening Achieving independence - to improve, our physical therapists will perform initial evaluation of pt's status upon admission and devise an individualized program for Community Reintegration Activities - Occupational Therapy ADL deficits - to improve, our occupation therapists will perform initial evaluation of pt's status upon admission and devise an individualized program for Bathing, Bed mobility, Community Reintegratio n, Cooking, Dressing, Eating, Fine Motor Skills, Grooming, Homemaking, Kitchen Mobility, Laundry, Pat ient Education, Safety Awareness, Splinting - Positioning, Transfers(Toilet, Tub, Shower), and Wheel Chair Management Need for physician locums urgent care - to improve, our occupation therapists will perform initial evaluation of pt's status upon admission and devise an individualized program for Caregiver Training Weakness - to improve, our occupation therapists will perform initial evaluation of pt's status upon admission and devise an individualized program for Aquatic Therapy, Balance, Endurance, UE ROM, and UE strengthening - Other See attached MAR (Medication Administration Record) - Diet Type Continue Regular - Diet - Liquid Texture Continue Regular - Tube Feed Continue N/A - Bladder care per protocol - Weight Bearing Precaution WBAT left LE - Skin care per protocol - Diet - Solid Texture Continue Regular - Shower allowing shower for Dementia, TBI, Stroke, or others FUNCTIONAL STATUS: UPDATED AT WEEKLY TEAM CONFERENCE - Walking Same score based on distance walked: 0(N/A) FUNCTIONAL STATUS: - Self-Care A. Eating Ridge B. Grooming Ridge C. Bathing modA D. Dressing - Upper Ridge E. Dressing - Lower modA F. Toileting Ridge - Sphincter Control G. Bladder control Alcira H. Bowel control Alcira - Transfers Control I. Bed/Chair/Wheelchair Ridge J. Toilet Ridge K. Tub/Shower Ridge - Locomotion L. Walk/Wheelchair (B) Ridge M. Stairs modA - Communication N. Comprehension (B) sup O. Expression (B) sup - Social Cognition P. Social Interaction sup Q. Problem Solving sup R. Memory sup - Endurance Fair - Balance Fair - Safety Awareness Fair QI SCORES: - Self-Care A. Eating 04-Supervision or touching assistance B. Oral hygiene 04-Supervision or touching assistance C. Toileting hygiene 03-Partial/moderate assistance E. Shower/bathe self 03-Partial/moderate assistance F. Upper body dressing 03-Partial/moderate assistance G. Lower body dressing 03-Partial/moderate assistance H. Putting on/taking off footwear 88-Not attempted due to medical condition or safety concerns - Mobility A. Roll left and right 03-Partial/moderate assistance B. Sit to lying 03-Partial/moderate assistance C. Lying to sitting on side of bed 03-Partial/moderate assistance D. Sit to stand 03-Partial/moderate assistance E. Chair/ohy-ij-zsgik transfer 03-Partial/moderate assistance F. Toilet transfer 03-Partial/moderate assistance G. Car transfer 88-Not attempted due to medical condition or safety concerns I. Walk 10 feet 88-Not attempted due to medical condition or safety concerns J. Walk 50 feet with two turns 88-Not attempted due to medical condition or safety concerns K. Walk 150 feet 88-Not attempted due to medical condition or safety concerns L. Walking 10 feet on uneven surfaces 88-Not attempted due to medical condition or safety concerns M. 1 step (curb) 88-Not attempted due to medical condition or safety concerns N. 4 steps 88-Not attempted due to medical condition or safety concerns O. 12 steps 88-Not attempted due to medical condition or safety concerns P. Picking up object 01-Dependent R. Wheel 50 feet with two turns 88-Not attempted due to medical condition or safety concerns S. Wheel 150 feet 88-Not attempted due to medical condition or safety concerns - Bladder and Bowel Bladder continence 0-Always continent Bowel continence 0-Always continent - Endurance Poor - Balance Poor - Safety Awareness Poor CURRENT FUNC. DEFICITS: Self-Care, Mobility, Endurance, Balance, and Safety Awareness SIGNATURE PANEL: (CDT)
[2020-02-25] MEDS: MELATONIN 3 MG TABLET PO PRN (20:36)
[2020-02-25] MEDS: TRAMADOL HCL 50 MG TAB PO PRN (20:40)
[2020-02-26] MEDS: ENOXAPARIN 40 MG/0.4 ML SQ SCH (07:03)
[2020-02-26] MEDS: ENSURE PUDDING 4 OZ CUP PO SCH ×2 (08:00→20:00)
[2020-02-26] MEDS: NYSTATIN 500,000 UNIT/5 ML UDC PO SCH ×4 (08:51→21:06)
[2020-02-26] MEDS: POTASSIUM 25 MEQ EFFERV TAB PO SCH (08:51)
[2020-02-26] MEDS: LIDOCAINE 4% PATCH TOP SCH (08:51)
[2020-02-26] MEDS: AMANTADINE 100 MG CAP PO SCH (08:52)
[2020-02-26] MEDS: TAMSULOSIN 0.4 MG SR CAP PO SCH (08:52)
[2020-02-26] MEDS: carvediloL 6.25 MG TAB PO SCH ×2 (08:52→21:06)
[2020-02-26] MEDS: MAGNESIUM OXIDE 400 MG TAB PO SCH (08:53)
[2020-02-26] MEDS: modafiniL 100 MG TAB PO SCH (08:53)
[2020-02-26] MEDS: DULOXETINE 20 MG CAP PO SCH (08:53)
[2020-02-26] MEDS: SODIUM CHLORIDE 1 GM TAB PO SCH ×2 (08:53→17:33)
[2020-02-26] MEDS: SMZ./TMP. 800/160 MG TABLET PO SCH ×2 (08:54→21:06)
[2020-02-26] MEDS: ACETAMINOPHEN 325 MG TABLET PO PRN (08:54)
[2020-02-26] MEDS: MEGESTROL 40 MG TAB PO SCH ×2 (08:54→21:06)
--- NOTE | 2020-02-26 10:09 | P.RH.PN ---
Estimated Length of Stay: 19 Expected Discharge Date: 03/11/20 Discharge Disposition Plan: Home Family Support: Yes [facility] Goal: Mobility, Transfers, Self Care Vital Signs: Last Vital Signs Temp 98.2 F 02/26/20 08:00 Pulse 78 02/26/20 08:52 Resp 16 02/26/20 08:00 BP 138/84 02/26/20 08:52 Pulse Ox 97 02/26/20 08:00 Laboratory: Laboratory Last Values WBC 6.5 K/uL (4.3-10.9) D 02/25/20 05:33 RBC 3.03 M/uL (3.86-4.86) L 02/25/20 05:33 Hgb 9.6 g/dL (12.0-15.0) L 02/25/20 05:33 Hct 29.0 % (36.0-45.0) L 02/25/20 05:33 MCV 95.7 fL (80-100) 02/25/20 05:33 MCH 31.7 pg (27.0-35.0) 02/25/20 05:33 MCHC 33.1 g/dL (32.0-36.0) 02/25/20 05:33 RDW 14.5 % (12.1-15.2) 02/25/20 05:33 Plt Count 399 K/uL (152-406) D 02/25/20 05:33 MPV 7.0 fL (7.6-11.3) L 02/25/20 05:33 Neutrophils % 73.5 % (41.7-73.7) 02/25/20 05:33 Lymphocytes % 18.0 % (15.3-44.8) 02/25/20 05:33 Monocytes % 6.3 % (3.3-12.3) 02/25/20 05:33 Eosinophils % 1.8 % (0-4.4) 02/25/20 05:33 Basophils % 0.4 % (0-1.3) 02/25/20 05:33 Absolute Neutrophils 4.8 K/uL (1.8-8.0) 02/25/20 05:33 Absolute Lymphocytes 1.2 K/uL (0.7-4.9) 02/25/20 05:33 Absolute Monocytes 0.4 K/uL (0.1-1.3) 02/25/20 05:33 Absolute Eosinophils 0.1 K/uL (0-0.5) 02/25/20 05:33 Absolute Basophils 0.0 K/uL (0-0.5) 02/25/20 05:33 Sodium 144 mmol/L (136-145) 02/25/20 05:33 Potassium 3.4 mmol/L (3.5-5.1) L 02/25/20 05:33 Chloride 110 mmol/L (98-107) H 02/25/20 05:33 Carbon Dioxide 29 mmol/L (21-32) 02/25/20 05:33 BUN 12 mg/dL (7-18) 02/25/20 05:33 Creatinine 0.45 mg/dL (0.55-1.3) L 02/25/20 05:33 Estimated GFR > 90 mL/min (=/>90) 02/25/20 05:33 Glucose 105 mg/dL (74-106) 02/25/20 05:33 Calcium 8.5 mg/dL (8.5-10.1) 02/25/20 05:33 Magnesium Cancelled 02/25/20 06:00 Albumin Cancelled 02/25/20 06:00 Prealbumin Cancelled 02/25/20 06:00 Urine Color Yellow 02/22/20 16:30 Urine Appearance Cloudy 02/22/20 16:30 Urine pH 6.5 (5.0-7.0) 02/22/20 16:30 Ur Specific [place] 1.020 (1.005-1.030) 02/22/20 16:30 Glucose (UA)(Auto) Negative (NEG) 02/22/20 16:30 Urine Ketones Trace (NEG) 02/22/20 16:30 Urine Blood 1+ (NEG) H 02/22/20 16:30 Urine Nitrite Positive (NEG) H 02/22/20 16:30 Urine Bilirubin Negative (NEG) 02/22/20 16:30 Urine Urobilinogen 2.0 mg/dL (0.2-1.0) H 02/22/20 16:30 Ur Leukocyte Esterase 1+ (NEG) H 02/22/20 16:30 Urine RBC 5-10 /HPF (NONE SEEN) H 02/22/20 16:30 Urine WBC 5-10 /HPF (<5) H 02/22/20 16:30 Ur Squamous Epith Cells <5 /HPF (NONE SEEN) 02/22/20 16:30 Urine Bacteria >50 /HPF (<20) H 02/22/20 16:30 Urine Mucus 2+ /HPF (NONE SEEN) 02/22/20 16:30 Urine Culture Reflexed Not needed 02/22/20 16:30 Urine Total Protein Negative (NEG) 02/22/20 16:30 Weight: 129 lb Wound Present: No Closed Surgical Incision Present: Yes Negative Pressure Wound Therapy Present: No Physician Update: Labs reviewed and are stable. She still has dense left arm paresis with slightly improvement in forearm extension. Her mood is improving slowly. She is on Cymbalta. Functional Improvement: pt is demonstrating progress. She has improved her balance and stability during ambulation and functional transfers. She is becoming more alert throughout the session and her performance is improving a ccordingly. pt is still fairly depressed and requires encouragement. pt will continue to require PT services to improve independence and safety. Summary: Patient's care plan and residential goals have been reviewed and revised as necessary. Please see the Rehabilitation Signature page for all necessary signatures.
[2020-02-26] MEDS: TRAMADOL HCL 50 MG TAB PO PRN ×2 (11:38→21:08)
[2020-02-26] MEDS ORDERED: NA CHLORIDE 0.9% 1,000 ML IV SCH (14:00)
[2020-02-26] MEDS: MELATONIN 3 MG TABLET PO PRN (21:06)
--- NOTE | 2020-02-27 02:45 | FAST ---
SHIFT START DATE/TIME: 02/26/2020 19:00 (CDT) SHIFT END DATE/TIME: 02/27/2020 07:00 (CDT) NAME JEREMY GROSS DATE OF : 1955 DATE OF ADMISSION: 02/22/2020 14:50 (CDT) PHONE: AGE: 64 N# [id number] GENDER: Female ENCOUNTER PHYSICIAN: Dr. Florentin Hoover M.D. ADMISSION DIAGNOSIS: - Stroke 01 - Left Body (Right Brain) (01.1) Subarachnoid hemorrhage. EATING: Not assessed/no information CODE: - ORAL HYGIENE: Not assessed/no information CODE: - TOILETING HYGIENE: TOILETING HYGIENE - STEP 1: Does the patient complete the activity by him/herself with no assistance (physical, verbal/nonverbal cueing, setup/clean-up)? No. TOILETING HYGIENE - STEP 2: Does the patient need only setup/clean-up assistance from one helper? No. TOILETING HYGIENE - STEP 3: Does the patient need only verbal/nonverbal cueing or touching/steadying/contact guard assistance fro m one helper? No. TOILETING HYGIENE - STEP 4: Does the patient need physical assistance - for example lifting or trunk support from one helper - wi th the helper providing less than half of the effort? Yes. 1. [id number] ADMISSION PERFORMANCE: Partial/moderate assistance CODE: 03 BATHING: Not assessed/no information CODE: - DRESSING - UPPER BODY: Not assessed/no information CODE: - DRESSING - LOWER BODY: Not assessed/no information CODE: - PUTTING ON/TAKING OFF FOOTWEAR: Not assessed/no information CODE: - ROLL LEFT AND RIGHT: ROLL LEFT AND RIGHT - STEP 1: Does the patient complete the activity by him/herself with no assistance (physical, verbal/nonverbal cueing, setup/clean-up)? No. ROLL LEFT AND RIGHT - STEP 2: Does the patient need only setup/clean-up assistance from one helper? No. ROLL LEFT AND RIGHT - STEP 3: Does the patient need only verbal/nonverbal cueing or touching/steadying/contact guard assistance fro m one helper? Yes. 1. [id number] ADMISSION PERFORMANCE: Supervision or touching assistance CODE: 04 SIT TO LYING: Not assessed/no information CODE: - LYING TO SITTING: Not assessed/no information CODE: - SIT TO STAND: Not assessed/no information CODE: - TRANSFERS: BED, CHAIR: Not assessed/no information CODE: - TRANSFER TOILET: Not assessed/no information CODE: - TRANSFERS: CAR: Not assessed/no information CODE: - WALK 10 FEET: Not assessed/no information CODE: - 1 STEP (CURB): Not assessed/no information CODE: - PICKING UP OBJECT: Not assessed/no information CODE: - DOES THE PATIENT USE A WHEELCHAIR/SCOOTER? CODE: EXPR WHEEL 50 FEET WITH TWO TURNS: Not assessed/no information CODE: - INDICATE THE TYPE OF WHEELCHAIR/SCOOTER USED: CODE: EXPR WHEEL 150 FEET: Not assessed/no information CODE: - INDICATE THE TYPE OF WHEELCHAIR/SCOOTER USED: CODE: EXPR BLADDER AND BOWEL: H350. BLADDER CONTINENCE (3-DAY ASSESSMENT PERIOD): Not applicable (e.g., indwelling catheter) CODE: 9 H400. BOWEL CONTINENCE (3-DAY ASSESSMENT PERIOD): Always continent CODE: 0
[2020-02-27] MEDS: LIDOCAINE 4% PATCH TOP SCH ×2 (06:45→09:47)
[2020-02-27] MEDS: ENOXAPARIN 40 MG/0.4 ML SQ SCH (08:00)
[2020-02-27] MEDS: POTASSIUM 25 MEQ EFFERV TAB PO SCH (08:07)
[2020-02-27] MEDS: NYSTATIN 500,000 UNIT/5 ML UDC PO SCH ×4 (08:07→21:10)
[2020-02-27] MEDS: AMANTADINE 100 MG CAP PO SCH (08:07)
[2020-02-27] MEDS: ACETAMINOPHEN 325 MG TABLET PO PRN (08:08)
[2020-02-27] MEDS: DULOXETINE 20 MG CAP PO SCH (08:09)
[2020-02-27] MEDS: carvediloL 6.25 MG TAB PO SCH ×2 (08:09→21:10)
[2020-02-27] MEDS: modafiniL 100 MG TAB PO SCH (08:09)
[2020-02-27] MEDS: MEGESTROL 40 MG TAB PO SCH ×2 (08:10→21:10)
[2020-02-27] MEDS: SODIUM CHLORIDE 1 GM TAB PO SCH ×2 (08:10→16:47)
[2020-02-27] MEDS: SMZ./TMP. 800/160 MG TABLET PO SCH ×2 (08:10→21:09)
[2020-02-27] MEDS: MAGNESIUM OXIDE 400 MG TAB PO SCH (08:10)
[2020-02-27] MEDS: ENSURE PUDDING 4 OZ CUP PO SCH ×2 (08:11→20:00)
[2020-02-27] MEDS: TAMSULOSIN 0.4 MG SR CAP PO SCH (08:11)
--- NOTE | 2020-02-27 12:05 | FAST ---
ENCOUNTER DATE AND TIME: 02/27/2020 08:00 (CDT) NAME JEREMY GROSS DATE OF : 1955 DATE OF ADMISSION: 02/22/2020 14:50 (CDT) PHONE: AGE: 64 N# [id number] GENDER: Female ENCOUNTER PHYSICIAN: Dr. Florentin Hoover M.D. ADMISSION DIAGNOSIS: - Stroke 01 - Left Body (Right Brain) (01.1) Subarachnoid hemorrhage. EATING: Not assessed/no information CODE: - ORAL HYGIENE: ORAL HYGIENE - STEP 1: Does the patient complete the activity by him/herself with no assistance (physical, verbal/nonverbal cueing, setup/clean-up)? No. ORAL HYGIENE - STEP 2: Does the patient need only setup/clean-up assistance from one helper? No. ORAL HYGIENE - STEP 3: Does the patient need only verbal/nonverbal cueing or touching/steadying/contact guard assistance fro m one helper? Yes. 1. [id number] ADMISSION PERFORMANCE: Supervision or touching assistance CODE: 04 TOILETING HYGIENE: Not assessed/no information CODE: - BATHING: SHOWER/BATHE SELF - STEP 1: Does the patient complete the activity by him/herself with no assistance (physical, verbal/nonverbal cueing, setup/clean-up)? No. SHOWER/BATHE SELF - STEP 2: Does the patient need only setup/clean-up assistance from one helper? No. SHOWER/BATHE SELF - STEP 3: Does the patient need only verbal/nonverbal cueing or touching/steadying/contact guard assistance fro m one helper? No. SHOWER/BATHE SELF - STEP 4: Does the patient need physical assistance - for example lifting or trunk support from one helper - wi th the helper providing less than half of the effort? Yes. 1. [id number] ADMISSION PERFORMANCE: Partial/moderate assistance CODE: 03 DRESSING - UPPER BODY: DRESSING - UPPER BODY - STEP 1: Does the patient complete the activity by him/herself with no assistance (physical, verbal/nonverbal cueing, setup/clean-up)? No. DRESSING - UPPER BODY - STEP 2: Does the patient need only setup/clean-up assistance from one helper? No. DRESSING - UPPER BODY - STEP 3: Does the patient need only verbal/nonverbal cueing or touching/steadying/contact guard assistance fro m one helper? No. DRESSING - UPPER BODY - STEP 4: Does the patient need physical assistance - for example lifting or trunk support from one helper - wi th the helper providing less than half of the effort? No. DRESSING - UPPER BODY - STEP 5: Does the patient need physical assistance - for example lifting or trunk support from one helper - wi th the helper providing more than half of the effort? Yes. 1. [id number] ADMISSION PERFORMANCE: Substantial/maximal assistance CODE: 02 DRESSING - LOWER BODY: DRESSING - LOWER BODY - STEP 1: Does the patient complete the activity by him/herself with no assistance (physical, verbal/nonverbal cueing, setup/clean-up)? No. DRESSING - LOWER BODY - STEP 2: Does the patient need only setup/clean-up assistance from one helper? No. DRESSING - LOWER BODY - STEP 3: Does the patient need only verbal/nonverbal cueing or touching/steadying/contact guard assistance fro m one helper? No. DRESSING - LOWER BODY - STEP 4: Does the patient need physical assistance - for example lifting or trunk support from one helper - wi th the helper providing less than half of the effort? Yes. 1. ADMISSION PERFORMANCE: Partial/moderate assistance CODE: 03 PUTTING ON/TAKING OFF FOOTWEAR: FOOTWEAR - STEP 1: Does the patient complete the activity by him/herself with no assistance (physical, verbal/nonverbal cueing, setup/clean-up)? No. FOOTWEAR - STEP 2: Does the patient need only setup/clean-up assistance from one helper? No. FOOTWEAR - STEP 3: Does the patient need only verbal/nonverbal cueing or touching/steadying/contact guard assistance fro m one helper? Yes. 1. ADMISSION PERFORMANCE: Supervision or touching assistance CODE: 04 DOES THE PATIENT USE A WHEELCHAIR/SCOOTER? CODE: EXPR INDICATE THE TYPE OF WHEELCHAIR/SCOOTER USED: CODE: EXPR INDICATE THE TYPE OF WHEELCHAIR/SCOOTER USED: CODE: EXPR BLADDER AND BOWEL: CODE: EXPR CODE: EXPR SIGNATURE PANEL: The following modified sections: 1. [id number] Admission Performance, 1. [id number] Admission Performance, 1. [id number] Admission Performance, 1. [id number] Admission Performance, 1. [id number] Admission Performance were [electronically] signed by SKY Michelle on SatFeb 27 2020 12:05:08 GMT-0500 (Central Daylight Time)
[2020-02-27] MEDS: TRAMADOL HCL 50 MG TAB PO PRN ×2 (13:15→21:19)
[2020-02-27] MEDS: DOCUSATE NA/SENNA CONC 1 TAB PO PRN (21:10)
[2020-02-27] MEDS: PROMOD 30 ML DOSE PO SCH (21:11)
[2020-02-27] MEDS: MELATONIN 3 MG TABLET PO PRN (21:19)
[2020-02-28] MEDS: ENOXAPARIN 40 MG/0.4 ML SQ SCH (07:00)
[2020-02-28] MEDS: LIDOCAINE 4% PATCH TOP SCH (07:00)
[2020-02-28] MEDS: NYSTATIN 500,000 UNIT/5 ML UDC PO SCH ×4 (07:36→20:23)
[2020-02-28] MEDS: POTASSIUM 25 MEQ EFFERV TAB PO SCH (07:36)
[2020-02-28] MEDS: modafiniL 100 MG TAB PO SCH (07:38)
[2020-02-28] MEDS: carvediloL 6.25 MG TAB PO SCH ×2 (07:38→20:23)
[2020-02-28] MEDS: AMANTADINE 100 MG CAP PO SCH (07:38)
[2020-02-28] MEDS: MAGNESIUM OXIDE 400 MG TAB PO SCH (07:39)
[2020-02-28] MEDS: DULOXETINE 20 MG CAP PO SCH (07:39)
[2020-02-28] MEDS: PROMOD 30 ML DOSE PO SCH ×2 (07:40→20:23)
[2020-02-28] MEDS: TAMSULOSIN 0.4 MG SR CAP PO SCH (07:40)
[2020-02-28] MEDS: SMZ./TMP. 800/160 MG TABLET PO SCH ×2 (07:40→20:23)
[2020-02-28] MEDS: ENSURE PUDDING 4 OZ CUP PO SCH ×2 (07:40→20:00)
[2020-02-28] MEDS: MEGESTROL 40 MG TAB PO SCH ×2 (07:40→20:23)
[2020-02-28] MEDS: SODIUM CHLORIDE 1 GM TAB PO SCH ×2 (07:42→17:30)
[2020-02-28] MEDS: TRAMADOL HCL 50 MG TAB PO PRN (12:30)
[2020-02-28] MEDS ORDERED: MAGNESIUM CITRATE 300 ML BOT PO ONE (14:00)
[2020-02-28] MEDS ORDERED: NA CHLORIDE 0.9% 1,000 ML IV SCH (19:00)
[2020-02-28] MEDS: DOCUSATE NA/SENNA CONC 1 TAB PO PRN (20:23)
[2020-02-28] MEDS: MELATONIN 3 MG TABLET PO PRN (20:24)
[2020-02-29] MEDS: ENOXAPARIN 40 MG/0.4 ML SQ SCH (07:40)
[2020-02-29] MEDS: NYSTATIN 500,000 UNIT/5 ML UDC PO SCH ×4 (07:44→20:54)
[2020-02-29] MEDS: LIDOCAINE 4% PATCH TOP SCH (07:44)
[2020-02-29] MEDS: modafiniL 100 MG TAB PO SCH (07:47)
[2020-02-29] MEDS: TAMSULOSIN 0.4 MG SR CAP PO SCH (07:47)
[2020-02-29] MEDS: AMANTADINE 100 MG CAP PO SCH (07:47)
[2020-02-29] MEDS: POTASSIUM 25 MEQ EFFERV TAB PO SCH (07:47)
[2020-02-29] MEDS: DULOXETINE 20 MG CAP PO SCH (07:47)
[2020-02-29] MEDS: MEGESTROL 40 MG TAB PO SCH ×2 (07:48→20:53)
[2020-02-29] MEDS: carvediloL 6.25 MG TAB PO SCH ×2 (07:48→20:53)
[2020-02-29] MEDS: SODIUM CHLORIDE 1 GM TAB PO SCH ×2 (07:48→17:18)
[2020-02-29] MEDS: SMZ./TMP. 800/160 MG TABLET PO SCH ×2 (07:48→20:52)
[2020-02-29] MEDS: MAGNESIUM OXIDE 400 MG TAB PO SCH (07:48)
[2020-02-29] MEDS: PROMOD 30 ML DOSE PO SCH ×2 (07:49→20:54)
[2020-02-29] MEDS: ENSURE PUDDING 4 OZ CUP PO SCH ×2 (07:49→20:00)
[2020-02-29] MEDS: TRAMADOL HCL 50 MG TAB PO PRN ×2 (10:33→20:53)
--- NOTE | 2020-02-29 14:18 | FAST ---
ENCOUNTER DATE AND TIME: 02/29/2020 08:00 (CDT) NAME JEREMY GROSS DATE OF : 1955 DATE OF ADMISSION: 02/22/2020 14:50 (CDT) PHONE: AGE: 64 N# [id number] GENDER: Female ENCOUNTER PHYSICIAN: Dr. Florentin Hoover M.D. ADMISSION DIAGNOSIS: - Stroke 01 - Left Body (Right Brain) (01.1) Subarachnoid hemorrhage. EATING: Not assessed/no information CODE: - ORAL HYGIENE: ORAL HYGIENE - STEP 1: Does the patient complete the activity by him/herself with no assistance (physical, verbal/nonverbal cueing, setup/clean-up)? No. ORAL HYGIENE - STEP 2: Does the patient need only setup/clean-up assistance from one helper? No. ORAL HYGIENE - STEP 3: Does the patient need only verbal/nonverbal cueing or touching/steadying/contact guard assistance fro m one helper? Yes. 1. [id number] ADMISSION PERFORMANCE: Supervision or touching assistance CODE: 04 TOILETING HYGIENE: Not assessed/no information CODE: - BATHING: SHOWER/BATHE SELF - STEP 1: Does the patient complete the activity by him/herself with no assistance (physical, verbal/nonverbal cueing, setup/clean-up)? No. SHOWER/BATHE SELF - STEP 2: Does the patient need only setup/clean-up assistance from one helper? No. SHOWER/BATHE SELF - STEP 3: Does the patient need only verbal/nonverbal cueing or touching/steadying/contact guard assistance fro m one helper? Yes. 1. [id number] ADMISSION PERFORMANCE: Supervision or touching assistance CODE: 04 DRESSING - UPPER BODY: DRESSING - UPPER BODY - STEP 1: Does the patient complete the activity by him/herself with no assistance (physical, verbal/nonverbal cueing, setup/clean-up)? No. DRESSING - UPPER BODY - STEP 2: Does the patient need only setup/clean-up assistance from one helper? No. DRESSING - UPPER BODY - STEP 3: Does the patient need only verbal/nonverbal cueing or touching/steadying/contact guard assistance fro m one helper? No. DRESSING - UPPER BODY - STEP 4: Does the patient need physical assistance - for example lifting or trunk support from one helper - wi th the helper providing less than half of the effort? Yes. 1. [id number] ADMISSION PERFORMANCE: Partial/moderate assistance CODE: 03 DRESSING - LOWER BODY: DRESSING - LOWER BODY - STEP 1: Does the patient complete the activity by him/herself with no assistance (physical, verbal/nonverbal cueing, setup/clean-up)? No. DRESSING - LOWER BODY - STEP 2: Does the patient need only setup/clean-up assistance from one helper? No. DRESSING - LOWER BODY - STEP 3: Does the patient need only verbal/nonverbal cueing or touching/steadying/contact guard assistance fro m one helper? No. DRESSING - LOWER BODY - STEP 4: Does the patient need physical assistance - for example lifting or trunk support from one helper - wi th the helper providing less than half of the effort? Yes. 1. [id number] ADMISSION PERFORMANCE: Partial/moderate assistance CODE: 03 PUTTING ON/TAKING OFF FOOTWEAR: FOOTWEAR - STEP 1: Does the patient complete the activity by him/herself with no assistance (physical, verbal/nonverbal cueing, setup/clean-up)? No. FOOTWEAR - STEP 2: Does the patient need only setup/clean-up assistance from one helper? No. FOOTWEAR - STEP 3: Does the patient need only verbal/nonverbal cueing or touching/steadying/contact guard assistance fro m one helper? Yes. 1. [id number] ADMISSION PERFORMANCE: Supervision or touching assistance CODE: 04 DOES THE PATIENT USE A WHEELCHAIR/SCOOTER? CODE: EXPR INDICATE THE TYPE OF WHEELCHAIR/SCOOTER USED: CODE: EXPR INDICATE THE TYPE OF WHEELCHAIR/SCOOTER USED: CODE: EXPR BLADDER AND BOWEL: CODE: EXPR CODE: EXPR SIGNATURE PANEL: The following modified sections: 1. [id number] Admission Performance, 1. [id number] Admission Performance, 1. [id number] Admission Performance, 1. [id number] Admission Performance, 1. [id number] Admission Performance were [electronically] signed by SKY Michelle on SatFeb 29 2020 14:17:46 GMT-0500 (Central Daylight Time)
--- NOTE | 2020-02-29 17:23 | R.PN ---
ENCOUNTER DATE AND TIME: 02/29/2020 17:18 (CDT) NAME JEREMY GROSS DATE OF : 1955 DATE OF ADMISSION: 02/22/2020 14:50 (CDT) Subarachnoid hemorrhageCHIEF COMPLAINT: Subarachnoid hemorrhage with dense left upper extremity weakness, depression SUBJECTIVE: Pt denied any depression. Pt denied any Shortness of Breath. Her dense left upper extremity weakness is unchanged at 1/5. Ambulated 480' with contact guard assist ance using a hemiwalker in her right hand. She used a quad cane and improved ambulation. She started Cymbalta 20 mg daily for depression after stroke and her mood is improving. She has 4% lidoderm patch es on her posterior neck and lower back for chronic pain. WBC 6.5, Hgb 9.6, prealbumin 19.8, UA positive nitrite, 1+ esterase, > 50 bacteria, urine cultures sh ow 4+ E-Coli sensitive to bactrim. Will give Bactrim DS, bid for 7 days and D/C keflex. VITAL SIGNS Temperature: 99.3 SBP/DBP: 128/73 Pulse 81 Resp: 16 MEDICATION ALLERGIES: No Known Drug Allergies (NKDA) ENVIRONMENTAL ALLERGIES: - Substance Allergies None Known - Other Allergies None Known NURSING: - Shower allowing shower - Bladder care per protocol - Skin care per protocol PRECAUTIONS: - Weight Bearing Precaution WBAT left LE ACTIVITIES OOB only with supervision THERAPIES: - Occupational Therapy Cognitive Retraining. Visual Perceptual Training. - Dietary and Nutrition Adequate Nutrition. Nutritional Education. Nutritional Supplements. - Speech Therapy Cognitive Training. Expressive Language Skills. Memory Strategies. Receptive Language Skills. Speech Intelligibility Training. PHYSICAL EXAM - Gen Alert and awake Lying in bed No apparent distress Oriented to: person, time, and place - Skin No skin breakdown. Normacephalic - Eyes No abnormalities - ENMT No abnormalities - Neck No abnormalities - CVS RRR - Resp Clear to auscultation - Abd Soft - GI Non distended Deferred - No abnormalities - Ext No significant edema - MSK 0/5 weakness in left upper and 4+/5 in left lower extremity - Neuro 4/5 strength left upper and lower extremities. - Psych No abnormalities ASSESSMENT: Pt. is a 64 yo Right-handed white female.On 02/05/2020 she was admitted to [facility] with d iagnosis Subarachnoid hemorrhage.Her impairment category is Stroke 01 - Left Body (Right Brain) (01. 1).Pre-morbidly, Pt. was independent/mod-I in Transfers Control, Locomotion, and Self-Care; and she h ad good Balance, Safety Awareness, Social Cognition, Sphincter Control, and Communication.Currently, she has deficits of Transfers Control, Balance, Safety Awareness, and Self-Care.Pt. is now referred t [facility] for acute in-patient rehabilitation in order to maximize patient' s functional independence in activities of daily living, strength, ROM, and mobility.- Rehab Goal Patient has realistic goal of being discharged at assistance level 6-Alcira to reside at Home with Fam angelica/Relatives. MDM/PLAN: - Physical Therapy Gait dysfunction - to improve, our physical therapists will perform initial evaluation of pt's statu s upon admission and devise an individualized program for Gait Training, and Wheel Chair mobility Inability to transfer - to improve, our physical therapists will perform initial evaluation of pt's status upon admission and devise an individualized program for Bed mobility Need for home safety evaluation - to improve, our physical therapists will perform initial evaluatio n of pt's status upon admission and devise an individualized program for Home Evaluation Need in caregiver upon discharge - to improve, our physical therapists will perform initial evaluati on of pt's status upon admission and devise an individualized program for Caregiver Training Edema - to improve, our physical therapists will perform initial evaluation of pt's status upon admi ssion and devise an individualized program for Elevation Training, and Lymphedema Therapy New precaution - to improve, our physical therapists will perform initial evaluation of pt's status upon admission and devise an individualized program for Patient precaution education Poor balance - to improve, our physical therapists will perform initial evaluation of pt's status up on admission and devise an individualized program for Balance Training Weakness - to improve, our physical therapists will perform initial evaluation of pt's status upon a dmission and devise an individualized program for Aquatic Therapy, Neuromuscular Reeducation, and Str engthening Achieving independence - to improve, our physical therapists will perform initial evaluation of pt's status upon admission and devise an individualized program for Community Reintegration Activities - Occupational Therapy ADL deficits - to improve, our occupation therapists will perform initial evaluation of pt's status upon admission and devise an individualized program for Bathing, Bed mobility, Community Reintegratio n, Cooking, Dressing, Eating, Fine Motor Skills, Grooming, Homemaking, Kitchen Mobility, Laundry, Pat ient Education, Safety Awareness, Splinting - Positioning, Transfers(Toilet, Tub, Shower), and Wheel Chair Management Need for director of career resources - to improve, our occupation therapists will perform initial evaluation of pt's status upon admission and devise an individualized program for Caregiver Training Weakness - to improve, our occupation therapists will perform initial evaluation of pt's status upon admission and devise an individualized program for Aquatic Therapy, Balance, Endurance, UE ROM, and UE strengthening - Other See attached MAR (Medication Administration Record) - Diet Type Continue Regular - Diet - Liquid Texture Continue Regular - Tube Feed Continue N/A - Bladder care per protocol - Weight Bearing Precaution WBAT left LE - Skin care per protocol - Diet - Solid Texture Continue Regular - Shower allowing shower for Dementia, TBI, Stroke, or others FUNCTIONAL STATUS: UPDATED AT WEEKLY TEAM CONFERENCE - Walking Same score based on distance walked: 0(N/A) FUNCTIONAL STATUS: - Self-Care A. Eating Ridge B. Grooming Ridge C. Bathing modA D. Dressing - Upper Ridge E. Dressing - Lower modA F. Toileting Ridge - Sphincter Control G. Bladder control Alcira H. Bowel control Alcira - Transfers Control I. Bed/Chair/Wheelchair Ridge J. Toilet Ridge K. Tub/Shower Ridge - Locomotion L. Walk/Wheelchair (B) Ridge M. Stairs modA - Communication N. Comprehension (B) sup O. Expression (B) sup - Social Cognition P. Social Interaction sup Q. Problem Solving sup R. Memory sup - Endurance Fair - Balance Fair - Safety Awareness Fair QI SCORES: - Self-Care A. Eating 04-Supervision or touching assistance B. Oral hygiene 04-Supervision or touching assistance C. Toileting hygiene 03-Partial/moderate assistance E. Shower/bathe self 03-Partial/moderate assistance F. Upper body dressing 03-Partial/moderate assistance G. Lower body dressing 03-Partial/moderate assistance H. Putting on/taking off footwear 88-Not attempted due to medical condition or safety concerns - Mobility A. Roll left and right 03-Partial/moderate assistance B. Sit to lying 03-Partial/moderate assistance C. Lying to sitting on side of bed 03-Partial/moderate assistance D. Sit to stand 03-Partial/moderate assistance E. Chair/[id number] transfer 03-Partial/moderate assistance F. Toilet transfer 03-Partial/moderate assistance G. Car transfer 88-Not attempted due to medical condition or safety concerns I. Walk 10 feet 88-Not attempted due to medical condition or safety concerns J. Walk 50 feet with two turns 88-Not attempted due to medical condition or safety concerns K. Walk 150 feet 88-Not attempted due to medical condition or safety concerns L. Walking 10 feet on uneven surfaces 88-Not attempted due to medical condition or safety concerns M. 1 step (curb) 88-Not attempted due to medical condition or safety concerns N. 4 steps 88-Not attempted due to medical condition or safety concerns O. 12 steps 88-Not attempted due to medical condition or safety concerns P. Picking up object 01-Dependent R. Wheel 50 feet with two turns 88-Not attempted due to medical condition or safety concerns S. Wheel 150 feet 88-Not attempted due to medical condition or safety concerns - Bladder and Bowel Bladder continence 0-Always continent Bowel continence 0-Always continent - Endurance Poor - Balance Poor - Safety Awareness Poor CURRENT FUNC. DEFICITS: Self-Care, Mobility, Endurance, Balance, and Safety Awareness SIGNATURE PANEL: (CDT)
[2020-02-29] MEDS: ACETAMINOPHEN 325 MG TABLET PO PRN (20:52)
[2020-02-29] MEDS: MELATONIN 3 MG TABLET PO PRN (20:53)
[2020-03-01 06:15] LABS: Potassium 4.2 mmol/L (3.5-5.1)
[2020-03-01] MEDS: LIDOCAINE 4% PATCH TOP SCH (06:38)
[2020-03-01] MEDS: ENOXAPARIN 40 MG/0.4 ML SQ SCH (06:38)
[2020-03-01] MEDS: TRAMADOL HCL 50 MG TAB PO PRN ×2 (07:59→20:19)
[2020-03-01] MEDS: ENSURE PUDDING 4 OZ CUP PO SCH ×2 (08:00→20:00)
[2020-03-01] MEDS: modafiniL 100 MG TAB PO SCH (08:01)
[2020-03-01] MEDS: POTASSIUM 25 MEQ EFFERV TAB PO SCH (08:01)
[2020-03-01] MEDS: PROMOD 30 ML DOSE PO SCH ×2 (08:01→20:21)
[2020-03-01] MEDS: AMANTADINE 100 MG CAP PO SCH (08:02)
[2020-03-01] MEDS: NYSTATIN 500,000 UNIT/5 ML UDC PO SCH ×4 (08:02→20:19)
[2020-03-01] MEDS: SODIUM CHLORIDE 1 GM TAB PO SCH ×2 (08:02→17:25)
[2020-03-01] MEDS: MEGESTROL 40 MG TAB PO SCH ×2 (08:03→20:20)
[2020-03-01] MEDS: TAMSULOSIN 0.4 MG SR CAP PO SCH (08:03)
[2020-03-01] MEDS: carvediloL 6.25 MG TAB PO SCH ×2 (08:03→20:20)
[2020-03-01] MEDS: DULOXETINE 20 MG CAP PO SCH (08:04)
[2020-03-01] MEDS: MAGNESIUM OXIDE 400 MG TAB PO SCH (08:04)
[2020-03-01] MEDS: SMZ./TMP. 800/160 MG TABLET PO SCH ×2 (08:04→20:19)
--- NOTE | 2020-03-01 17:52 | R.PN ---
ENCOUNTER DATE AND TIME: 03/01/2020 17:43 (CDT) NAME JEREMY GROSS DATE OF : 1955 DATE OF ADMISSION: 02/22/2020 14:50 (CDT) Subarachnoid hemorrhageCHIEF COMPLAINT: Subarachnoid hemorrhage with dense left upper extremity weakness, depression SUBJECTIVE: Pt denied any depression. Pt denied any Shortness of Breath. Her dense left upper extremity weakness is unchanged at 1/5. Ambulated 300' with contact guard assist ance using a quad cane in her right hand. She started Cymbalta 20 mg daily for depression after strok e and her mood is improving. She has 4% lidoderm patches on her posterior neck and lower back for chr onic pain. Reactor Technician 0.72, potassium 4.2. WBC 6.5, Hgb 9.6, prealbumin 19.8, UA positive nitrite, 1+ esterase, > 50 ba cteria, urine cultures show 4+ E-Coli sensitive to bactrim. Will give Bactrim DS, bid for 7 days and D/C keflex. VITAL SIGNS Temperature: 98.3 SBP/DBP: 125/60 Pulse: 84 Resp: 16 MEDICATION ALLERGIES: No Known Drug Allergies (NKDA) ENVIRONMENTAL ALLERGIES: - Substance Allergies None Known - Other Allergies None Known NURSING: - Shower allowing shower - Bladder care per protocol - Skin care per protocol PRECAUTIONS: - Weight Bearing Precaution WBAT left LE ACTIVITIES OOB only with supervision THERAPIES: - Occupational Therapy Cognitive Retraining. Visual Perceptual Training. - Dietary and Nutrition Adequate Nutrition. Nutritional Education. Nutritional Supplements. - Speech Therapy Cognitive Training. Expressive Language Skills. Memory Strategies. Receptive Language Skills. Speech Intelligibility Training. PHYSICAL EXAM - Gen Alert and awake Lying in bed No apparent distress Oriented to: person, time, and place - Skin No skin breakdown. Normacephalic - Eyes No abnormalities - ENMT No abnormalities - Neck No abnormalities - CVS RRR - Resp Clear to auscultation - Abd Soft - GI Non distended Deferred - No abnormalities - Ext No significant edema - MSK 0/5 weakness in left upper and 4+/5 in left lower extremity - Neuro 4/5 strength left upper and lower extremities. - Psych No abnormalities ASSESSMENT: Pt. is a 64 yo Right-handed white female.On 02/05/2020 she was admitted to [facility] with d iagnosis Subarachnoid hemorrhage.Her impairment category is Stroke 01 - Left Body (Right Brain) (01. 1).Pre-morbidly, Pt. was independent/mod-I in Transfers Control, Locomotion, and Self-Care; and she h ad good Balance, Safety Awareness, Social Cognition, Sphincter Control, and Communication.Currently, she has deficits of Transfers Control, Balance, Safety Awareness, and Self-Care.Pt. is now referred t [facility] for acute in-patient rehabilitation in order to maximize patient' s functional independence in activities of daily living, strength, ROM, and mobility.- Rehab Goal Patient has realistic goal of being discharged at assistance level 6-Alcira to reside at Home with Fam angelica/Relatives. MDM/PLAN: - Physical Therapy Gait dysfunction - to improve, our physical therapists will perform initial evaluation of pt's statu s upon admission and devise an individualized program for Gait Training, and Wheel Chair mobility Inability to transfer - to improve, our physical therapists will perform initial evaluation of pt's status upon admission and devise an individualized program for Bed mobility Need for home safety evaluation - to improve, our physical therapists will perform initial evaluatio n of pt's status upon admission and devise an individualized program for Home Evaluation Need in caregiver upon discharge - to improve, our physical therapists will perform initial evaluati on of pt's status upon admission and devise an individualized program for Caregiver Training Edema - to improve, our physical therapists will perform initial evaluation of pt's status upon admi ssion and devise an individualized program for Elevation Training, and Lymphedema Therapy New precaution - to improve, our physical therapists will perform initial evaluation of pt's status upon admission and devise an individualized program for Patient precaution education Poor balance - to improve, our physical therapists will perform initial evaluation of pt's status up on admission and devise an individualized program for Balance Training Weakness - to improve, our physical therapists will perform initial evaluation of pt's status upon a dmission and devise an individualized program for Aquatic Therapy, Neuromuscular Reeducation, and Str engthening Achieving independence - to improve, our physical therapists will perform initial evaluation of pt's status upon admission and devise an individualized program for Community Reintegration Activities - Occupational Therapy ADL deficits - to improve, our occupation therapists will perform initial evaluation of pt's status upon admission and devise an individualized program for Bathing, Bed mobility, Community Reintegratio n, Cooking, Dressing, Eating, Fine Motor Skills, Grooming, Homemaking, Kitchen Mobility, Laundry, Pat ient Education, Safety Awareness, Splinting - Positioning, Transfers(Toilet, Tub, Shower), and Wheel Chair Management Need for healthcare marketer - to improve, our occupation therapists will perform initial evaluation of pt's status upon admission and devise an individualized program for Caregiver Training Weakness - to improve, our occupation therapists will perform initial evaluation of pt's status upon admission and devise an individualized program for Aquatic Therapy, Balance, Endurance, UE ROM, and UE strengthening - Other See attached MAR (Medication Administration Record) - Diet Type Continue Regular - Diet - Liquid Texture Continue Regular - Tube Feed Continue N/A - Bladder care per protocol - Weight Bearing Precaution WBAT left LE - Skin care per protocol - Diet - Solid Texture Continue Regular - Shower allowing shower for Dementia, TBI, Stroke, or others FUNCTIONAL STATUS: UPDATED AT WEEKLY TEAM CONFERENCE - Walking Same score based on distance walked: 0(N/A) FUNCTIONAL STATUS: - Self-Care A. Eating Ridge B. Grooming Ridge C. Bathing modA D. Dressing - Upper Ridge E. Dressing - Lower modA F. Toileting Ridge - Sphincter Control G. Bladder control Alcira H. Bowel control Alcira - Transfers Control I. Bed/Chair/Wheelchair Ridge J. Toilet Ridge K. Tub/Shower Ridge - Locomotion L. Walk/Wheelchair (B) Ridge M. Stairs modA - Communication N. Comprehension (B) sup O. Expression (B) sup - Social Cognition P. Social Interaction sup Q. Problem Solving sup R. Memory sup - Endurance Fair - Balance Fair - Safety Awareness Fair QI SCORES: - Self-Care A. Eating 04-Supervision or touching assistance B. Oral hygiene 04-Supervision or touching assistance C. Toileting hygiene 03-Partial/moderate assistance E. Shower/bathe self 03-Partial/moderate assistance F. Upper body dressing 03-Partial/moderate assistance G. Lower body dressing 03-Partial/moderate assistance H. Putting on/taking off footwear 88-Not attempted due to medical condition or safety concerns - Mobility A. Roll left and right 03-Partial/moderate assistance B. Sit to lying 03-Partial/moderate assistance C. Lying to sitting on side of bed 03-Partial/moderate assistance D. Sit to stand 03-Partial/moderate assistance E. Chair/mts-la-kuzmh transfer 03-Partial/moderate assistance F. Toilet transfer 03-Partial/moderate assistance G. Car transfer 88-Not attempted due to medical condition or safety concerns I. Walk 10 feet 88-Not attempted due to medical condition or safety concerns J. Walk 50 feet with two turns 88-Not attempted due to medical condition or safety concerns K. Walk 150 feet 88-Not attempted due to medical condition or safety concerns L. Walking 10 feet on uneven surfaces 88-Not attempted due to medical condition or safety concerns M. 1 step (curb) 88-Not attempted due to medical condition or safety concerns N. 4 steps 88-Not attempted due to medical condition or safety concerns O. 12 steps 88-Not attempted due to medical condition or safety concerns P. Picking up object 01-Dependent R. Wheel 50 feet with two turns 88-Not attempted due to medical condition or safety concerns S. Wheel 150 feet 88-Not attempted due to medical condition or safety concerns - Bladder and Bowel Bladder continence 0-Always continent Bowel continence 0-Always continent - Endurance Poor - Balance Poor - Safety Awareness Poor CURRENT FUNC. DEFICITS: Self-Care, Mobility, Endurance, Balance, and Safety Awareness SIGNATURE PANEL: (CDT)
[2020-03-01] MEDS: MELATONIN 3 MG TABLET PO PRN (20:19)
[2020-03-01] MEDS: DOCUSATE NA/SENNA CONC 1 TAB PO PRN (20:20)
[2020-03-01] MEDS: LORATADINE 10 MG TAB PO SCH (20:21)
[2020-03-02] MEDS: ENOXAPARIN 40 MG/0.4 ML SQ SCH (07:40)
[2020-03-02] MEDS: MAGNESIUM OXIDE 400 MG TAB PO SCH (08:00)
[2020-03-02] MEDS: ENSURE PUDDING 4 OZ CUP PO SCH ×2 (08:00→19:19)
[2020-03-02] MEDS: carvediloL 6.25 MG TAB PO SCH ×2 (08:00→19:18)
[2020-03-02] MEDS: TRAMADOL HCL 50 MG TAB PO PRN (09:14)
[2020-03-02] MEDS: NYSTATIN 500,000 UNIT/5 ML UDC PO SCH ×3 (09:15→19:18)
[2020-03-02] MEDS: LIDOCAINE 4% PATCH TOP SCH (09:15)
[2020-03-02] MEDS: MEGESTROL 40 MG TAB PO SCH ×2 (09:16→19:18)
[2020-03-02] MEDS: SODIUM CHLORIDE 1 GM TAB PO SCH ×2 (09:16→17:05)
[2020-03-02] MEDS: modafiniL 100 MG TAB PO SCH (09:16)
[2020-03-02] MEDS: TAMSULOSIN 0.4 MG SR CAP PO SCH (09:16)
[2020-03-02] MEDS: AMANTADINE 100 MG CAP PO SCH (09:16)
[2020-03-02] MEDS: SMZ./TMP. 800/160 MG TABLET PO SCH (09:17)
[2020-03-02] MEDS: POTASSIUM 25 MEQ EFFERV TAB PO SCH (09:18)
[2020-03-02] MEDS: DULOXETINE 20 MG CAP PO SCH (09:18)
[2020-03-02] MEDS: LORATADINE 10 MG TAB PO SCH (09:18)
[2020-03-02] MEDS: PROMOD 30 ML DOSE PO SCH ×2 (10:07→19:19)
--- NOTE | 2020-03-02 12:43 | FAST ---
ENCOUNTER DATE AND TIME: 03/02/2020 08:00 (CDT) NAME JEREMY GROSS DATE OF : 1955 DATE OF ADMISSION: 02/22/2020 14:50 (CDT) PHONE: AGE: 64 N# [id number] GENDER: Female ENCOUNTER PHYSICIAN: Dr. Florentin Hoover M.D. ADMISSION DIAGNOSIS: - Stroke 01 - Left Body (Right Brain) (01.1) Subarachnoid hemorrhage. EATING: Not assessed/no information CODE: - ORAL HYGIENE: ORAL HYGIENE - STEP 1: Does the patient complete the activity by him/herself with no assistance (physical, verbal/nonverbal cueing, setup/clean-up)? No. ORAL HYGIENE - STEP 2: Does the patient need only setup/clean-up assistance from one helper? No. ORAL HYGIENE - STEP 3: Does the patient need only verbal/nonverbal cueing or touching/steadying/contact guard assistance fro m one helper? Yes. 1. [id number] ADMISSION PERFORMANCE: Supervision or touching assistance CODE: 04 TOILETING HYGIENE: Not assessed/no information CODE: - BATHING: SHOWER/BATHE SELF - STEP 1: Does the patient complete the activity by him/herself with no assistance (physical, verbal/nonverbal cueing, setup/clean-up)? No. SHOWER/BATHE SELF - STEP 2: Does the patient need only setup/clean-up assistance from one helper? No. SHOWER/BATHE SELF - STEP 3: Does the patient need only verbal/nonverbal cueing or touching/steadying/contact guard assistance fro m one helper? Yes. 1. [id number] ADMISSION PERFORMANCE: Supervision or touching assistance CODE: 04 DRESSING - UPPER BODY: DRESSING - UPPER BODY - STEP 1: Does the patient complete the activity by him/herself with no assistance (physical, verbal/nonverbal cueing, setup/clean-up)? No. DRESSING - UPPER BODY - STEP 2: Does the patient need only setup/clean-up assistance from one helper? No. DRESSING - UPPER BODY - STEP 3: Does the patient need only verbal/nonverbal cueing or touching/steadying/contact guard assistance fro m one helper? Yes. 1. [id number] ADMISSION PERFORMANCE: Supervision or touching assistance CODE: 04 DRESSING - LOWER BODY: DRESSING - LOWER BODY - STEP 1: Does the patient complete the activity by him/herself with no assistance (physical, verbal/nonverbal cueing, setup/clean-up)? No. DRESSING - LOWER BODY - STEP 2: Does the patient need only setup/clean-up assistance from one helper? No. DRESSING - LOWER BODY - STEP 3: Does the patient need only verbal/nonverbal cueing or touching/steadying/contact guard assistance fro m one helper? Yes. 1. [id number] ADMISSION PERFORMANCE: Supervision or touching assistance CODE: 04 PUTTING ON/TAKING OFF FOOTWEAR: FOOTWEAR - STEP 1: Does the patient complete the activity by him/herself with no assistance (physical, verbal/nonverbal cueing, setup/clean-up)? No. FOOTWEAR - STEP 2: Does the patient need only setup/clean-up assistance from one helper? No. FOOTWEAR - STEP 3: Does the patient need only verbal/nonverbal cueing or touching/steadying/contact guard assistance fro m one helper? Yes. 1. [id number] ADMISSION PERFORMANCE: Supervision or touching assistance CODE: 04 DOES THE PATIENT USE A WHEELCHAIR/SCOOTER? CODE: EXPR INDICATE THE TYPE OF WHEELCHAIR/SCOOTER USED: CODE: EXPR INDICATE THE TYPE OF WHEELCHAIR/SCOOTER USED: CODE: EXPR BLADDER AND BOWEL: CODE: EXPR CODE: EXPR SIGNATURE PANEL: The following modified sections: 1. [id number] Admission Performance, 1. [id number] Admission Performance, 1. [id number] Admission Performance, 1. [id number] Admission Performance, 1. [id number] Admission Performance were [electronically] signed by SKY Michelle on SatMar 02 2020 12:42:55 GMT-0500 (Central Daylight Time)
[2020-03-02] MEDS: MELATONIN 3 MG TABLET PO PRN (19:19)
[2020-03-03 06:20] LABS: Albumin 3.1 g/dL (3.4-5.0); Magnesium 2.2 mg/dL (1.8-2.4); Prealbumin 30.1 mg/dL (20-40)
[2020-03-03 06:37] LABS: Absolute Lymphocytes (CBC) 1.3 K/uL (0.7-4.9); Basophils % 0.5 % (0-1.3); Hematocrit 33.4 % (36.0-45.0)
[2020-03-03] MEDS: ENOXAPARIN 40 MG/0.4 ML SQ SCH (06:55)
[2020-03-03] MEDS: LIDOCAINE 4% PATCH TOP SCH (06:56)
[2020-03-03] MEDS: POTASSIUM 25 MEQ EFFERV TAB PO SCH (07:36)
[2020-03-03] MEDS: DULOXETINE 20 MG CAP PO SCH (07:37)
[2020-03-03] MEDS: carvediloL 6.25 MG TAB PO SCH ×2 (07:37→20:21)
[2020-03-03] MEDS: MEGESTROL 40 MG TAB PO SCH ×2 (07:38→20:21)
[2020-03-03] MEDS: LORATADINE 10 MG TAB PO SCH (07:38)
[2020-03-03] MEDS: MAGNESIUM OXIDE 400 MG TAB PO SCH (07:38)
[2020-03-03] MEDS: ENSURE PUDDING 4 OZ CUP PO SCH ×2 (07:39→20:00)
[2020-03-03] MEDS: TAMSULOSIN 0.4 MG SR CAP PO SCH (07:39)
[2020-03-03] MEDS: NYSTATIN 500,000 UNIT/5 ML UDC PO SCH ×2 (07:39→20:21)
[2020-03-03] MEDS: PROMOD 30 ML DOSE PO SCH ×2 (07:39→20:21)
[2020-03-03] MEDS: modafiniL 100 MG TAB PO SCH (07:42)
[2020-03-03] MEDS: SODIUM CHLORIDE 1 GM TAB PO SCH ×2 (07:43→17:00)
[2020-03-03] MEDS: AMANTADINE 100 MG CAP PO SCH (07:43)
[2020-03-03] MEDS: TRAMADOL HCL 50 MG TAB PO PRN ×2 (08:34→20:20)
--- NOTE | 2020-03-03 10:31 | FAST ---
SHIFT START DATE/TIME: 03/03/2020 07:00 (CDT) SHIFT END DATE/TIME: 03/03/2020 19:00 (CDT) NAME JEREMY GROSS DATE OF : 1955 DATE OF ADMISSION: 02/22/2020 14:50 (CDT) PHONE: AGE: 64 N# [id number] GENDER: Female ENCOUNTER PHYSICIAN: Dr. Florentin Hoover M.D. ADMISSION DIAGNOSIS: - Stroke 01 - Left Body (Right Brain) (01.1) Subarachnoid hemorrhage. EATING: EATING - STEP 1: Does the patient complete the activity by him/herself with no assistance (physical, verbal/nonverbal cueing, setup/clean-up)? No. EATING - STEP 2: Does the patient need only setup/clean-up assistance from one helper? No. EATING - STEP 3: Does the patient need only verbal/nonverbal cueing or touching/steadying/contact guard assistance fro m one helper? Yes. 1. [id number] ADMISSION PERFORMANCE: Supervision or touching assistance CODE: 04 ORAL HYGIENE: ORAL HYGIENE - STEP 1: Does the patient complete the activity by him/herself with no assistance (physical, verbal/nonverbal cueing, setup/clean-up)? No. ORAL HYGIENE - STEP 2: Does the patient need only setup/clean-up assistance from one helper? No. ORAL HYGIENE - STEP 3: Does the patient need only verbal/nonverbal cueing or touching/steadying/contact guard assistance fro m one helper? Yes. 1. [id number] ADMISSION PERFORMANCE: Supervision or touching assistance CODE: 04 TOILETING HYGIENE: TOILETING HYGIENE - STEP 1: Does the patient complete the activity by him/herself with no assistance (physical, verbal/nonverbal cueing, setup/clean-up)? No. TOILETING HYGIENE - STEP 2: Does the patient need only setup/clean-up assistance from one helper? No. TOILETING HYGIENE - STEP 3: Does the patient need only verbal/nonverbal cueing or touching/steadying/contact guard assistance fro m one helper? No. TOILETING HYGIENE - STEP 4: Does the patient need physical assistance - for example lifting or trunk support from one helper - wi th the helper providing less than half of the effort? Yes. 1. [id number] ADMISSION PERFORMANCE: Partial/moderate assistance CODE: 03 BATHING: Not assessed/no information CODE: - DRESSING - UPPER BODY: Not assessed/no information CODE: - DRESSING - LOWER BODY: Not assessed/no information CODE: - PUTTING ON/TAKING OFF FOOTWEAR: Not assessed/no information CODE: - ROLL LEFT AND RIGHT: ROLL LEFT AND RIGHT - STEP 1: Does the patient complete the activity by him/herself with no assistance (physical, verbal/nonverbal cueing, setup/clean-up)? No. ROLL LEFT AND RIGHT - STEP 2: Does the patient need only setup/clean-up assistance from one helper? No. ROLL LEFT AND RIGHT - STEP 3: Does the patient need only verbal/nonverbal cueing or touching/steadying/contact guard assistance fro m one helper? Yes. 1. [id number] ADMISSION PERFORMANCE: Supervision or touching assistance CODE: 04 SIT TO LYING: SIT TO LYING - STEP 1: Does the patient complete the activity by him/herself with no assistance (physical, verbal/nonverbal cueing, setup/clean-up)? No. SIT TO LYING - STEP 2: Does the patient need only setup/clean-up assistance from one helper? No. SIT TO LYING - STEP 3: Does the patient need only verbal/nonverbal cueing or touching/steadying/contact guard assistance fro m one helper? Yes. 1. [id number] ADMISSION PERFORMANCE: Supervision or touching assistance CODE: 04 LYING TO SITTING: Not assessed/no information CODE: - SIT TO STAND: SIT TO STAND - STEP 1: Does the patient complete the activity by him/herself with no assistance (physical, verbal/nonverbal cueing, setup/clean-up)? No. SIT TO STAND - STEP 2: Does the patient need only setup/clean-up assistance from one helper? No. SIT TO STAND - STEP 3: Does the patient need only verbal/nonverbal cueing or touching/steadying/contact guard assistance fro m one helper? Yes. 1. [id number] ADMISSION PERFORMANCE: Supervision or touching assistance CODE: 04 TRANSFERS: BED, CHAIR: CHAIR/[id number] TRANSFER - STEP 1: Does the patient complete the activity by him/herself with no assistance (physical, verbal/nonverbal cueing, setup/clean-up)? No. CHAIR/[id number] TRANSFER - STEP 2: Does the patient need only setup/clean-up assistance from one helper? No. CHAIR/[id number]-[id number] TRANSFER - STEP 3: Does the patient need only verbal/nonverbal cueing or touching/steadying/contact guard assistance fro m one helper? Yes. 1. [id number] ADMISSION PERFORMANCE: Supervision or touching assistance CODE: 04 TRANSFER TOILET: TOILET TRANSFER - STEP 1: Does the patient complete the activity by him/herself with no assistance (physical, verbal/nonverbal cueing, setup/clean-up)? No. TOILET TRANSFER - STEP 2: Does the patient need only setup/clean-up assistance from one helper? No. TOILET TRANSFER - STEP 3: Does the patient need only verbal/nonverbal cueing or touching/steadying/contact guard assistance fro m one helper? Yes. 1. [id number] ADMISSION PERFORMANCE: Supervision or touching assistance CODE: 04 TRANSFERS: CAR: Not assessed/no information CODE: - WALK 10 FEET: Not assessed/no information CODE: - 1 STEP (CURB): Not assessed/no information CODE: - PICKING UP OBJECT: Not assessed/no information CODE: - DOES THE PATIENT USE A WHEELCHAIR/SCOOTER? CODE: EXPR WHEEL 50 FEET WITH TWO TURNS: Not assessed/no information CODE: - INDICATE THE TYPE OF WHEELCHAIR/SCOOTER USED: CODE: EXPR WHEEL 150 FEET: Not assessed/no information CODE: - INDICATE THE TYPE OF WHEELCHAIR/SCOOTER USED: CODE: EXPR BLADDER AND BOWEL: H350. BLADDER CONTINENCE (3-DAY ASSESSMENT PERIOD): Always continent (no documented incontinence) CODE: 0 H400. BOWEL CONTINENCE (3-DAY ASSESSMENT PERIOD): Always continent CODE: 0 SIGNATURE PANEL: The following modified sections: 1. [id number] Admission Performance, 1. [id number] Admission Performance, 1. [id number] Admission Performance, 1. [id number] Admission Performance, 1. [id number] Admission Performance, 1. [id number] Admission Performance, 1. [id number] Admission Performance, 1. [id number] Admission Performance , Code, H350. Bladder Continence (3-day assessment period), H400. Bowel Continence (3-day assessment period) were [electronically] signed by Elroy Jacobson on SatMar 03 2020 10:30:14 T-0500 (Central Day ight Time)
[2020-03-03 10:49] LABS: Blood Morphology Comment NOT SEEN (NOT SEEN); Platelet Estimate ADEQ; Urine White Blood Cell Casts OK
--- NOTE | 2020-03-03 17:40 | R.PN ---
ENCOUNTER DATE AND TIME: 03/03/2020 17:33 (CDT) NAME JEREMY GROSS DATE OF : 1955 DATE OF ADMISSION: 02/22/2020 14:50 (CDT) Subarachnoid hemorrhageCHIEF COMPLAINT: Subarachnoid hemorrhage with dense left upper extremity weakness, depression SUBJECTIVE: Pt denied any depression. Pt denied any Shortness of Breath. Her dense left upper extremity weakness is unchanged at 1/5. Ambulated 750' with contact guard assist ance without an assistive device. She self-propelled a wheelchair 500' with standby assistance. She s tarted Cymbalta 20 mg daily for depression after stroke and her mood is improving. She has 4% lidoder m patches on her posterior neck and lower back for chronic pain. Project Manager/Design Manager 0.72, potassium 4.2. WBC 5.8, Hgb 11.0, prealbumin 30.1, UA positive nitrite, 1+ esterase, > 50 b acteria, urine cultures show 4+ E-Coli sensitive to bactrim. She completed Bactrim DS, bid for 7 days . VITAL SIGNS Temperature: 98.9 SBP/DBP: 107/68 Pulse: 94 Resp: 14 MEDICATION ALLERGIES: No Known Drug Allergies (NKDA) ENVIRONMENTAL ALLERGIES: - Substance Allergies None Known - Other Allergies None Known NURSING: - Shower allowing shower - Bladder care per protocol - Skin care per protocol PRECAUTIONS: - Weight Bearing Precaution WBAT left LE ACTIVITIES OOB only with supervision THERAPIES: - Occupational Therapy Cognitive Retraining. Visual Perceptual Training. - Dietary and Nutrition Adequate Nutrition. Nutritional Education. Nutritional Supplements. - Speech Therapy Cognitive Training. Expressive Language Skills. Memory Strategies. Receptive Language Skills. Speech Intelligibility Training. PHYSICAL EXAM - Gen Alert and awake Lying in bed No apparent distress Oriented to: person, time, and place - Skin No skin breakdown. Normacephalic - Eyes No abnormalities - ENMT No abnormalities - Neck No abnormalities - CVS RRR - Resp Clear to auscultation - Abd Soft - GI Non distended Deferred - No abnormalities - Ext No significant edema - MSK 0/5 weakness in left upper and 4+/5 in left lower extremity - Neuro 4/5 strength left upper and lower extremities. - Psych No abnormalities ASSESSMENT: Pt. is a 64 yo Right-handed white female.On 02/05/2020 she was admitted to [facility] with d iagnosis Subarachnoid hemorrhage.Her impairment category is Stroke 01 - Left Body (Right Brain) (01. 1).Pre-morbidly, Pt. was independent/mod-I in Transfers Control, Locomotion, and Self-Care; and she h ad good Balance, Safety Awareness, Social Cognition, Sphincter Control, and Communication.Currently, she has deficits of Transfers Control, Balance, Safety Awareness, and Self-Care.Pt. is now referred t [facility] for acute in-patient rehabilitation in order to maximize patient' s functional independence in activities of daily living, strength, ROM, and mobility.- Rehab Goal Patient has realistic goal of being discharged at assistance level 6-Alcira to reside at Home with Fam angelica/Relatives. MDM/PLAN: - Physical Therapy Gait dysfunction - to improve, our physical therapists will perform initial evaluation of pt's statu s upon admission and devise an individualized program for Gait Training, and Wheel Chair mobility Inability to transfer - to improve, our physical therapists will perform initial evaluation of pt's status upon admission and devise an individualized program for Bed mobility Need for home safety evaluation - to improve, our physical therapists will perform initial evaluatio n of pt's status upon admission and devise an individualized program for Home Evaluation Need in caregiver upon discharge - to improve, our physical therapists will perform initial evaluati on of pt's status upon admission and devise an individualized program for Caregiver Training Edema - to improve, our physical therapists will perform initial evaluation of pt's status upon admi ssion and devise an individualized program for Elevation Training, and Lymphedema Therapy New precaution - to improve, our physical therapists will perform initial evaluation of pt's status upon admission and devise an individualized program for Patient precaution education Poor balance - to improve, our physical therapists will perform initial evaluation of pt's status up on admission and devise an individualized program for Balance Training Weakness - to improve, our physical therapists will perform initial evaluation of pt's status upon a dmission and devise an individualized program for Aquatic Therapy, Neuromuscular Reeducation, and Str engthening Achieving independence - to improve, our physical therapists will perform initial evaluation of pt's status upon admission and devise an individualized program for Community Reintegration Activities - Occupational Therapy ADL deficits - to improve, our occupation therapists will perform initial evaluation of pt's status upon admission and devise an individualized program for Bathing, Bed mobility, Community Reintegratio n, Cooking, Dressing, Eating, Fine Motor Skills, Grooming, Homemaking, Kitchen Mobility, Laundry, Pat ient Education, Safety Awareness, Splinting - Positioning, Transfers(Toilet, Tub, Shower), and Wheel Chair Management Need for client care manager - to improve, our occupation therapists will perform initial evaluation of pt's status upon admission and devise an individualized program for Caregiver Training Weakness - to improve, our occupation therapists will perform initial evaluation of pt's status upon admission and devise an individualized program for Aquatic Therapy, Balance, Endurance, UE ROM, and UE strengthening - Other See attached MAR (Medication Administration Record) - Diet Type Continue Regular - Diet - Liquid Texture Continue Regular - Tube Feed Continue N/A - Bladder care per protocol - Weight Bearing Precaution WBAT left LE - Skin care per protocol - Diet - Solid Texture Continue Regular - Shower allowing shower for Dementia, TBI, Stroke, or others FUNCTIONAL STATUS: UPDATED AT WEEKLY TEAM CONFERENCE - Walking Same score based on distance walked: 0(N/A) FUNCTIONAL STATUS: - Self-Care A. Eating Ridge B. Grooming Ridge C. Bathing modA D. Dressing - Upper Ridge E. Dressing - Lower modA F. Toileting Ridge - Sphincter Control G. Bladder control Alcira H. Bowel control Alcira - Transfers Control I. Bed/Chair/Wheelchair Ridge J. Toilet Ridge K. Tub/Shower Ridge - Locomotion L. Walk/Wheelchair (B) Ridge M. Stairs modA - Communication N. Comprehension (B) sup O. Expression (B) sup - Social Cognition P. Social Interaction sup Q. Problem Solving sup R. Memory sup - Endurance Fair - Balance Fair - Safety Awareness Fair QI SCORES: - Self-Care A. Eating 04-Supervision or touching assistance B. Oral hygiene 04-Supervision or touching assistance C. Toileting hygiene 03-Partial/moderate assistance E. Shower/bathe self 03-Partial/moderate assistance F. Upper body dressing 03-Partial/moderate assistance G. Lower body dressing 03-Partial/moderate assistance H. Putting on/taking off footwear 88-Not attempted due to medical condition or safety concerns - Mobility A. Roll left and right 03-Partial/moderate assistance B. Sit to lying 03-Partial/moderate assistance C. Lying to sitting on side of bed 03-Partial/moderate assistance D. Sit to stand 03-Partial/moderate assistance E. Chair/ulj-gh-giujw transfer 03-Partial/moderate assistance F. Toilet transfer 03-Partial/moderate assistance G. Car transfer 88-Not attempted due to medical condition or safety concerns I. Walk 10 feet 88-Not attempted due to medical condition or safety concerns J. Walk 50 feet with two turns 88-Not attempted due to medical condition or safety concerns K. Walk 150 feet 88-Not attempted due to medical condition or safety concerns L. Walking 10 feet on uneven surfaces 88-Not attempted due to medical condition or safety concerns M. 1 step (curb) 88-Not attempted due to medical condition or safety concerns N. 4 steps 88-Not attempted due to medical condition or safety concerns O. 12 steps 88-Not attempted due to medical condition or safety concerns P. Picking up object 01-Dependent R. Wheel 50 feet with two turns 88-Not attempted due to medical condition or safety concerns S. Wheel 150 feet 88-Not attempted due to medical condition or safety concerns - Bladder and Bowel Bladder continence 0-Always continent Bowel continence 0-Always continent - Endurance Poor - Balance Poor - Safety Awareness Poor CURRENT FUNC. DEFICITS: Self-Care, Mobility, Endurance, Balance, and Safety Awareness SIGNATURE PANEL: (CDT)
[2020-03-04] MEDS: ENOXAPARIN 40 MG/0.4 ML SQ SCH (07:12)
[2020-03-04] MEDS: MAGNESIUM OXIDE 400 MG TAB PO SCH (08:00)
[2020-03-04] MEDS: ENSURE PUDDING 4 OZ CUP PO SCH ×2 (08:00→20:00)
[2020-03-04] MEDS: PROMOD 30 ML DOSE PO SCH ×2 (08:00→20:34)
[2020-03-04] MEDS: POTASSIUM 25 MEQ EFFERV TAB PO SCH (08:42)
[2020-03-04] MEDS: LIDOCAINE 4% PATCH TOP SCH (08:42)
[2020-03-04] MEDS: DULOXETINE 20 MG CAP PO SCH (08:43)
[2020-03-04] MEDS: modafiniL 100 MG TAB PO SCH (08:43)
[2020-03-04] MEDS: carvediloL 6.25 MG TAB PO SCH ×2 (08:43→20:00)
[2020-03-04] MEDS: TRAMADOL HCL 50 MG TAB PO PRN (08:44)
[2020-03-04] MEDS: LORATADINE 10 MG TAB PO SCH (08:44)
[2020-03-04] MEDS: SODIUM CHLORIDE 1 GM TAB PO SCH ×2 (08:44→17:09)
[2020-03-04] MEDS: TAMSULOSIN 0.4 MG SR CAP PO SCH (08:44)
[2020-03-04] MEDS: NYSTATIN 500,000 UNIT/5 ML UDC PO SCH ×2 (08:45→20:33)
[2020-03-04] MEDS: AMANTADINE 100 MG CAP PO SCH (08:45)
[2020-03-04] MEDS: MEGESTROL 40 MG TAB PO SCH ×2 (08:45→20:32)
--- NOTE | 2020-03-04 10:01 | P.RH.PN ---
Estimated Length of Stay: 19 Expected Discharge Date: 03/11/20 Discharge Disposition Plan: Home Family Support: Yes Half-Way Goal: Mobility, Transfers, Self Care Vital Signs: Last Vital Signs Temp 99 F 03/04/20 07:07 Pulse 100 H 03/04/20 08:43 Resp 16 03/04/20 08:44 BP 111/71 03/04/20 08:43 Pulse Ox 100 03/04/20 08:44 Laboratory: Laboratory Last Values WBC 5.8 K/uL (4.3-10.9) 03/03/20 05:51 RBC 3.50 M/uL (3.86-4.86) L 03/03/20 05:51 Hgb 11.0 g/dL (12.0-15.0) L 03/03/20 05:51 Hct 33.4 % (36.0-45.0) L D 03/03/20 05:51 MCV 95.5 fL (80-100) 03/03/20 05:51 MCH 31.3 pg (27.0-35.0) 03/03/20 05:51 MCHC 32.8 g/dL (32.0-36.0) 03/03/20 05:51 RDW 15.2 % (12.1-15.2) 03/03/20 05:51 Plt Count 270 K/uL (152-406) D 03/03/20 05:51 MPV 8.0 fL (7.6-11.3) D 03/03/20 05:51 Neutrophils % 65.8 % (41.7-73.7) 03/03/20 05:51 Lymphocytes % 23.0 % (15.3-44.8) 03/03/20 05:51 Monocytes % 7.8 % (3.3-12.3) 03/03/20 05:51 Eosinophils % 2.9 % (0-4.4) 03/03/20 05:51 Basophils % 0.5 % (0-1.3) 03/03/20 05:51 Absolute Neutrophils 3.8 K/uL (1.8-8.0) 03/03/20 05:51 Absolute Lymphocytes 1.3 K/uL (0.7-4.9) 03/03/20 05:51 Absolute Monocytes 0.4 K/uL (0.1-1.3) 03/03/20 05:51 Absolute Eosinophils 0.2 K/uL (0-0.5) 03/03/20 05:51 Absolute Basophils 0.0 K/uL (0-0.5) 03/03/20 05:51 Morphology Comment Not seen (NOT SEEN) 03/03/20 05:51 Sodium 141 mmol/L (136-145) 03/03/20 05:51 Potassium 4.0 mmol/L (3.5-5.1) 03/03/20 05:51 Chloride 108 mmol/L (98-107) H 03/03/20 05:51 Carbon Dioxide 26 mmol/L (21-32) 03/03/20 05:51 BUN 12 mg/dL (7-18) 03/03/20 05:51 Creatinine 0.76 mg/dL (0.55-1.3) 03/03/20 05:51 Estimated GFR 76 mL/min (=/>90) L 03/03/20 05:51 Glucose 101 mg/dL (74-106) 03/03/20 05:51 Calcium 9.2 mg/dL (8.5-10.1) 03/03/20 05:51 Magnesium 2.2 mg/dL (1.8-2.4) 03/03/20 05:51 Albumin 3.1 g/dL (3.4-5.0) L 03/03/20 05:51 Prealbumin 30.1 mg/dL (20-40) 03/03/20 05:51 Urine Color Yellow 02/22/20 16:30 Urine Appearance Cloudy 02/22/20 16:30 Urine pH 6.5 (5.0-7.0) 02/22/20 16:30 Ur Specific Dyer 1.020 (1.005-1.030) 02/22/20 16:30 Glucose (UA)(Auto) Negative (NEG) 02/22/20 16:30 Urine Ketones Trace (NEG) 02/22/20 16:30 Urine Blood 1+ (NEG) H 02/22/20 16:30 Urine Nitrite Positive (NEG) H 02/22/20 16:30 Urine Bilirubin Negative (NEG) 02/22/20 16:30 Urine Urobilinogen 2.0 mg/dL (0.2-1.0) H 02/22/20 16:30 Ur Leukocyte Esterase 1+ (NEG) H 02/22/20 16:30 Urine RBC 5-10 /HPF (NONE SEEN) H 02/22/20 16:30 Urine WBC 5-10 /HPF (<5) H 02/22/20 16:30 Ur Squamous Epith Cells <5 /HPF (NONE SEEN) 02/22/20 16:30 Urine Bacteria >50 /HPF (<20) H 02/22/20 16:30 Urine Mucus 2+ /HPF (NONE SEEN) 02/22/20 16:30 Urine Culture Reflexed Not needed 02/22/20 16:30 Urine Total Protein Negative (NEG) 02/22/20 16:30 Weight: 129 lb Wound Present: No Closed Surgical Incision Present: Yes Negative Pressure Wound Therapy Present: No Physician Update: Labs reviewed and are stable. She has more movement in the left forearm, hand and fingers. She is walking without an assistive device 250' and contact guard assistance. Her mood is improving slowly. Functional Improvement: Patient has met all short-term goals at this time, and is working toward long-term goals. Patient presents w/ slight lack of motivation due to aggravation. Patient follows commands well. Speech Therapy Update: Patient making excellent gains; diet was upgraded to mechancial soft - all foods ground with nectar thick liquids. Currently requires MIN A to Supervision for safety Summary: Patient's care plan and terminal operations supervisor goals have been reviewed and revised as necessary. Please see the Rehabilitation Signature page for all necessary signatures.
--- NOTE | 2020-03-04 15:20 | FAST ---
SHIFT START DATE/TIME: 03/04/2020 07:00 (CDT) SHIFT END DATE/TIME: 03/04/2020 19:00 (CDT) NAME JEREMY GROSS DATE OF : 1955 DATE OF ADMISSION: 02/22/2020 14:50 (CDT) PHONE: AGE: 64 N# [id number] GENDER: Female ENCOUNTER PHYSICIAN: Dr. Florentin Hoover M.D. ADMISSION DIAGNOSIS: - Stroke 01 - Left Body (Right Brain) (01.1) Subarachnoid hemorrhage. EATING: EATING - STEP 1: Does the patient complete the activity by him/herself with no assistance (physical, verbal/nonverbal cueing, setup/clean-up)? No. EATING - STEP 2: Does the patient need only setup/clean-up assistance from one helper? Yes. 1. [id number] ADMISSION PERFORMANCE: Setup or clean-up assistance CODE: 05 ORAL HYGIENE: ORAL HYGIENE - STEP 1: Does the patient complete the activity by him/herself with no assistance (physical, verbal/nonverbal cueing, setup/clean-up)? No. ORAL HYGIENE - STEP 2: Does the patient need only setup/clean-up assistance from one helper? No. ORAL HYGIENE - STEP 3: Does the patient need only verbal/nonverbal cueing or touching/steadying/contact guard assistance fro m one helper? No. ORAL HYGIENE - STEP 4: Does the patient need physical assistance - for example lifting or trunk support from one helper - wi th the helper providing less than half of the effort? Yes. 1. [id number] ADMISSION PERFORMANCE: Partial/moderate assistance CODE: 03 TOILETING HYGIENE: TOILETING HYGIENE - STEP 1: Does the patient complete the activity by him/herself with no assistance (physical, verbal/nonverbal cueing, setup/clean-up)? No. TOILETING HYGIENE - STEP 2: Does the patient need only setup/clean-up assistance from one helper? No. TOILETING HYGIENE - STEP 3: Does the patient need only verbal/nonverbal cueing or touching/steadying/contact guard assistance fro m one helper? Yes. 1. [id number] ADMISSION PERFORMANCE: Supervision or touching assistance CODE: 04 BATHING: Not assessed/no information CODE: - DRESSING - UPPER BODY: DRESSING - UPPER BODY - STEP 1: Does the patient complete the activity by him/herself with no assistance (physical, verbal/nonverbal cueing, setup/clean-up)? No. DRESSING - UPPER BODY - STEP 2: Does the patient need only setup/clean-up assistance from one helper? No. DRESSING - UPPER BODY - STEP 3: Does the patient need only verbal/nonverbal cueing or touching/steadying/contact guard assistance fro m one helper? Yes. 1. [id number] ADMISSION PERFORMANCE: Supervision or touching assistance CODE: 04 DRESSING - LOWER BODY: DRESSING - LOWER BODY - STEP 1: Does the patient complete the activity by him/herself with no assistance (physical, verbal/nonverbal cueing, setup/clean-up)? No. DRESSING - LOWER BODY - STEP 2: Does the patient need only setup/clean-up assistance from one helper? No. DRESSING - LOWER BODY - STEP 3: Does the patient need only verbal/nonverbal cueing or touching/steadying/contact guard assistance fro m one helper? Yes. 1. [id number] ADMISSION PERFORMANCE: Supervision or touching assistance CODE: 04 PUTTING ON/TAKING OFF FOOTWEAR: FOOTWEAR - STEP 1: Does the patient complete the activity by him/herself with no assistance (physical, verbal/nonverbal cueing, setup/clean-up)? No. FOOTWEAR - STEP 2: Does the patient need only setup/clean-up assistance from one helper? No. FOOTWEAR - STEP 3: Does the patient need only verbal/nonverbal cueing or touching/steadying/contact guard assistance fro m one helper? Yes. 1. [id number] ADMISSION PERFORMANCE: Supervision or touching assistance CODE: 04 ROLL LEFT AND RIGHT: ROLL LEFT AND RIGHT - STEP 1: Does the patient complete the activity by him/herself with no assistance (physical, verbal/nonverbal cueing, setup/clean-up)? No. ROLL LEFT AND RIGHT - STEP 2: Does the patient need only setup/clean-up assistance from one helper? No. ROLL LEFT AND RIGHT - STEP 3: Does the patient need only verbal/nonverbal cueing or touching/steadying/contact guard assistance fro m one helper? Yes. 1. [id number] ADMISSION PERFORMANCE: Supervision or touching assistance CODE: 04 SIT TO LYING: SIT TO LYING - STEP 1: Does the patient complete the activity by him/herself with no assistance (physical, verbal/nonverbal cueing, setup/clean-up)? No. SIT TO LYING - STEP 2: Does the patient need only setup/clean-up assistance from one helper? No. SIT TO LYING - STEP 3: Does the patient need only verbal/nonverbal cueing or touching/steadying/contact guard assistance fro m one helper? Yes. 1. [id number] ADMISSION PERFORMANCE: Supervision or touching assistance CODE: 04 LYING TO SITTING: LYING TO SITTING ON SIDE OF BED - STEP 1: Does the patient complete the activity by him/herself with no assistance (physical, verbal/nonverbal cueing, setup/clean-up)? No. LYING TO SITTING ON SIDE OF BED - STEP 2: Does the patient need only setup/clean-up assistance from one helper? No. LYING TO SITTING ON SIDE OF BED - STEP 3: Does the patient need only verbal/nonverbal cueing or touching/steadying/contact guard assistance fro m one helper? Yes. 1. [id number] ADMISSION PERFORMANCE: Supervision or touching assistance CODE: 04 SIT TO STAND: SIT TO STAND - STEP 1: Does the patient complete the activity by him/herself with no assistance (physical, verbal/nonverbal cueing, setup/clean-up)? No. SIT TO STAND - STEP 2: Does the patient need only setup/clean-up assistance from one helper? No. SIT TO STAND - STEP 3: Does the patient need only verbal/nonverbal cueing or touching/steadying/contact guard assistance fro m one helper? Yes. 1. [id number] ADMISSION PERFORMANCE: Supervision or touching assistance CODE: 04 TRANSFERS: BED, CHAIR: CHAIR/[id number] TRANSFER - STEP 1: Does the patient complete the activity by him/herself with no assistance (physical, verbal/nonverbal cueing, setup/clean-up)? No. CHAIR/[id number] TRANSFER - STEP 2: Does the patient need only setup/clean-up assistance from one helper? No. CHAIR/[id number] TRANSFER - STEP 3: Does the patient need only verbal/nonverbal cueing or touching/steadying/contact guard assistance fro m one helper? Yes. 1. [id number] ADMISSION PERFORMANCE: Supervision or touching assistance CODE: 04 TRANSFER TOILET: TOILET TRANSFER - STEP 1: Does the patient complete the activity by him/herself with no assistance (physical, verbal/nonverbal cueing, setup/clean-up)? No. TOILET TRANSFER - STEP 2: Does the patient need only setup/clean-up assistance from one helper? No. TOILET TRANSFER - STEP 3: Does the patient need only verbal/nonverbal cueing or touching/steadying/contact guard assistance fro m one helper? Yes. 1. [id number] ADMISSION PERFORMANCE: Supervision or touching assistance CODE: 04 TRANSFERS: CAR: Not assessed/no information CODE: - WALK 10 FEET: Not assessed/no information CODE: - 1 STEP (CURB): Not assessed/no information CODE: - PICKING UP OBJECT: Not assessed/no information CODE: - DOES THE PATIENT USE A WHEELCHAIR/SCOOTER? Q1. DOES THE PATIENT USE A WHEELCHAIR/SCOOTER?: No CODE: 0 INDICATE THE TYPE OF WHEELCHAIR/SCOOTER USED: CODE: EXPR INDICATE THE TYPE OF WHEELCHAIR/SCOOTER USED: CODE: EXPR BLADDER AND BOWEL: H350. BLADDER CONTINENCE (3-DAY ASSESSMENT PERIOD): Always continent (no documented incontinence) CODE: 0 H400. BOWEL CONTINENCE (3-DAY ASSESSMENT PERIOD): Occasionally incontinent (one episode of bowel incontinence) CODE: 1 SIGNATURE PANEL: The following modified sections: 1. [id number] Admission Performance, 1. [id number] Admission Performance, 1. [id number] Admission Performance, 1. [id number] Admission Performance, 1. [id number] Admission Performance, 1. [id number] Admission Performance, 1. [id number] Admission Performance, 1. [id number] Admission Performance , 1. [id number] Admission Performance, 1. [id number] Admission Performance, 1. [id number] Admission Performanc e, 1. [id number] Admission Performance, 1. [id number] Admission Performance, 1. [id number] Admission Performan ce, 1. [id number] Admission Performance, 1. [id number] Admission Performance, Q1. Does the patient use a wh eelchair/scooter?, H350. Bladder Continence (3-day assessment period), H400. Bowel Continence (3-day assessment period) were [electronically] signed by Shruthi Kolb C.N.A. on SatMar 04 2020 15:19:44 G MT-0500 (Central Daylight Time)
[2020-03-04] MEDS: FLUTICASONE 50MCG NASAL SPRAY NAS SCH (20:33)
[2020-03-04] MEDS: MELATONIN 3 MG TABLET PO PRN (20:33)
[2020-03-04 21:49] LABS: Urine Appearance CLEAR; Urine Bilirubin NEGATIVE (NEG); Urine Blood NEGATIVE (NEG); Urine Color YELLOW; Urine Glucose NEGATIVE (NEG); Urine Protein NEGATIVE (NEG); Urine Specific Gravity 1.025 (1.005-1.030); Urine pH 6.5 (5.0-7.0)
[2020-03-04 21:55] LABS: Urine Microscopic Reflex NO UMIC
[2020-03-05 05:43] VITALS: BMI 18.1
[2020-03-05] MEDS: ENOXAPARIN 40 MG/0.4 ML SQ SCH (07:00)
[2020-03-05] MEDS: LIDOCAINE 4% PATCH TOP SCH (07:01)
[2020-03-05] MEDS: PROMOD 30 ML DOSE PO SCH ×3 (08:00→19:49)
[2020-03-05] MEDS: FLUTICASONE 50MCG NASAL SPRAY NAS SCH ×2 (08:32→19:48)
[2020-03-05] MEDS: NYSTATIN 500,000 UNIT/5 ML UDC PO SCH ×2 (08:32→19:49)
[2020-03-05] MEDS: modafiniL 100 MG TAB PO SCH (08:32)
[2020-03-05] MEDS: SODIUM CHLORIDE 1 GM TAB PO SCH ×2 (08:33→17:05)
[2020-03-05] MEDS: AMANTADINE 100 MG CAP PO SCH (08:33)
[2020-03-05] MEDS: TAMSULOSIN 0.4 MG SR CAP PO SCH (08:33)
[2020-03-05] MEDS: DULOXETINE 20 MG CAP PO SCH (08:34)
[2020-03-05] MEDS: MAGNESIUM OXIDE 400 MG TAB PO SCH (08:34)
[2020-03-05] MEDS: POTASSIUM 25 MEQ EFFERV TAB PO SCH (08:34)
[2020-03-05] MEDS: LORATADINE 10 MG TAB PO SCH (08:34)
[2020-03-05] MEDS: carvediloL 6.25 MG TAB PO SCH ×2 (08:34→19:47)
[2020-03-05] MEDS: MEGESTROL 40 MG TAB PO SCH ×2 (08:34→19:48)
[2020-03-05] MEDS: ENSURE PUDDING 4 OZ CUP PO SCH ×2 (08:35→19:48)
[2020-03-05] MEDS: ACETAMINOPHEN 325 MG TABLET PO PRN (10:20)
[2020-03-06] MEDS: ENOXAPARIN 40 MG/0.4 ML SQ SCH (07:04)
[2020-03-06] MEDS: LIDOCAINE 4% PATCH TOP SCH (07:05)
[2020-03-06] MEDS: POTASSIUM 25 MEQ EFFERV TAB PO SCH (08:26)
[2020-03-06] MEDS: modafiniL 100 MG TAB PO SCH (08:26)
[2020-03-06] MEDS: MEGESTROL 40 MG TAB PO SCH ×2 (08:27→20:21)
[2020-03-06] MEDS: carvediloL 6.25 MG TAB PO SCH ×2 (08:27→20:21)
[2020-03-06] MEDS: NYSTATIN 500,000 UNIT/5 ML UDC PO SCH ×2 (08:27→20:21)
[2020-03-06] MEDS: DULOXETINE 20 MG CAP PO SCH (08:28)
[2020-03-06] MEDS: SODIUM CHLORIDE 1 GM TAB PO SCH ×2 (08:28→16:37)
[2020-03-06] MEDS: LORATADINE 10 MG TAB PO SCH (08:28)
[2020-03-06] MEDS: TAMSULOSIN 0.4 MG SR CAP PO SCH (08:28)
[2020-03-06] MEDS: ENSURE PUDDING 4 OZ CUP PO SCH ×2 (08:30→20:00)
[2020-03-06] MEDS: FLUTICASONE 50MCG NASAL SPRAY NAS SCH ×2 (08:30→20:00)
[2020-03-06] MEDS: PROMOD 30 ML DOSE PO SCH ×2 (08:31→20:21)
[2020-03-06] MEDS: MAGNESIUM OXIDE 400 MG TAB PO SCH (08:31)
[2020-03-06] MEDS: AMANTADINE 100 MG CAP PO SCH (08:32)
[2020-03-06] MEDS: ACETAMINOPHEN 325 MG TABLET PO PRN (08:45)
[2020-03-06] MEDS: MELATONIN 3 MG TABLET PO PRN (20:20)
[2020-03-07] MEDS: ENOXAPARIN 40 MG/0.4 ML SQ SCH (07:04)
[2020-03-07] MEDS: ENSURE PUDDING 4 OZ CUP PO SCH ×2 (08:00→20:00)
[2020-03-07] MEDS: LIDOCAINE 4% PATCH TOP SCH (09:04)
[2020-03-07] MEDS: NYSTATIN 500,000 UNIT/5 ML UDC PO SCH ×2 (09:04→20:35)
[2020-03-07] MEDS: LORATADINE 10 MG TAB PO SCH (09:05)
[2020-03-07] MEDS: TRAMADOL HCL 50 MG TAB PO PRN ×2 (09:06→15:08)
[2020-03-07] MEDS: modafiniL 100 MG TAB PO SCH (09:07)
[2020-03-07] MEDS: TAMSULOSIN 0.4 MG SR CAP PO SCH (09:07)
[2020-03-07] MEDS: DULOXETINE 20 MG CAP PO SCH (09:07)
[2020-03-07] MEDS: MAGNESIUM OXIDE 400 MG TAB PO SCH (09:07)
[2020-03-07] MEDS: AMANTADINE 100 MG CAP PO SCH (09:07)
[2020-03-07] MEDS: POTASSIUM 25 MEQ EFFERV TAB PO SCH (09:08)
[2020-03-07] MEDS: SODIUM CHLORIDE 1 GM TAB PO SCH ×2 (09:08→17:18)
[2020-03-07] MEDS: MEGESTROL 40 MG TAB PO SCH ×2 (09:08→20:34)
[2020-03-07] MEDS: carvediloL 6.25 MG TAB PO SCH ×2 (09:09→20:34)
[2020-03-07] MEDS: PROMOD 30 ML DOSE PO SCH ×2 (09:46→20:34)
[2020-03-07] MEDS: FLUTICASONE 50MCG NASAL SPRAY NAS SCH ×2 (12:01→20:35)
--- NOTE | 2020-03-07 14:42 | FAST ---
ENCOUNTER DATE AND TIME: 03/07/2020 08:00 (CDT) NAME JEREMY GROSS DATE OF : 1955 DATE OF ADMISSION: 02/22/2020 14:50 (CDT) PHONE: AGE: 64 N# [id number] GENDER: Female ENCOUNTER PHYSICIAN: Dr. Florentin Hoover M.D. ADMISSION DIAGNOSIS: - Stroke 01 - Left Body (Right Brain) (01.1) Subarachnoid hemorrhage. EATING: Not assessed/no information CODE: - ORAL HYGIENE: ORAL HYGIENE - STEP 1: Does the patient complete the activity by him/herself with no assistance (physical, verbal/nonverbal cueing, setup/clean-up)? Yes. 1. [id number] ADMISSION PERFORMANCE: Independent CODE: 06 TOILETING HYGIENE: Not assessed/no information CODE: - BATHING: SHOWER/BATHE SELF - STEP 1: Does the patient complete the activity by him/herself with no assistance (physical, verbal/nonverbal cueing, setup/clean-up)? No. SHOWER/BATHE SELF - STEP 2: Does the patient need only setup/clean-up assistance from one helper? No. SHOWER/BATHE SELF - STEP 3: Does the patient need only verbal/nonverbal cueing or touching/steadying/contact guard assistance fro m one helper? Yes. 1. [id number] ADMISSION PERFORMANCE: Supervision or touching assistance CODE: 04 DRESSING - UPPER BODY: DRESSING - UPPER BODY - STEP 1: Does the patient complete the activity by him/herself with no assistance (physical, verbal/nonverbal cueing, setup/clean-up)? No. DRESSING - UPPER BODY - STEP 2: Does the patient need only setup/clean-up assistance from one helper? No. DRESSING - UPPER BODY - STEP 3: Does the patient need only verbal/nonverbal cueing or touching/steadying/contact guard assistance fro m one helper? Yes. 1. [id number] ADMISSION PERFORMANCE: Supervision or touching assistance CODE: 04 DRESSING - LOWER BODY: DRESSING - LOWER BODY - STEP 1: Does the patient complete the activity by him/herself with no assistance (physical, verbal/nonverbal cueing, setup/clean-up)? No. DRESSING - LOWER BODY - STEP 2: Does the patient need only setup/clean-up assistance from one helper? No. DRESSING - LOWER BODY - STEP 3: Does the patient need only verbal/nonverbal cueing or touching/steadying/contact guard assistance fro m one helper? Yes. 1. [id number] ADMISSION PERFORMANCE: Supervision or touching assistance CODE: 04 PUTTING ON/TAKING OFF FOOTWEAR: FOOTWEAR - STEP 1: Does the patient complete the activity by him/herself with no assistance (physical, verbal/nonverbal cueing, setup/clean-up)? No. FOOTWEAR - STEP 2: Does the patient need only setup/clean-up assistance from one helper? No. FOOTWEAR - STEP 3: Does the patient need only verbal/nonverbal cueing or touching/steadying/contact guard assistance fro m one helper? Yes. 1. [id number] ADMISSION PERFORMANCE: Supervision or touching assistance CODE: 04 DOES THE PATIENT USE A WHEELCHAIR/SCOOTER? CODE: EXPR INDICATE THE TYPE OF WHEELCHAIR/SCOOTER USED: CODE: EXPR INDICATE THE TYPE OF WHEELCHAIR/SCOOTER USED: CODE: EXPR BLADDER AND BOWEL: CODE: EXPR CODE: EXPR SIGNATURE PANEL: The following modified sections: 1. [id number] Admission Performance, 1. [id number] Admission Performance, 1. RA4427i Admission Performance, 1. TL7116e Admission Performance, 1. VL2577i Admission Performance were [electronically] signed by SKY Michelle on SatMar 07 2020 14:41:52 GMT-0500 (Central Daylight Time)
[2020-03-07] MEDS: ONDANSETRON 4 MG (ODT) TAB PO PRN (17:18)
--- NOTE | 2020-03-07 17:34 | R.PN ---
ENCOUNTER DATE AND TIME: 03/07/2020 17:27 (CDT) NAME JEREMY GROSS DATE OF : 1955 DATE OF ADMISSION: 02/22/2020 14:50 (CDT) Subarachnoid hemorrhageCHIEF COMPLAINT: Subarachnoid hemorrhage with dense left upper extremity weakness, depression SUBJECTIVE: Pt denied any depression. Pt denied any Shortness of Breath. Substation Operator Transforming 0.72, potassium 4.2. WBC 5.8, Hgb 11.0, prealbumin 30.1, UA positive nitrite, 1+ esterase, > 50 b acteria, urine cultures show 4+ E-Coli sensitive to bactrim. She completed Bactrim DS, bid for 7 days . Her left upper extremity strength has improved to 3/5. She ambulated 1000' without an assistive devic e and contact guard assistance. Up and down 15 steps with contact guard assistance. VITAL SIGNS Temperature: 98.9 SBP/DBP: 117/77 Pulse: 95 Resp: 16 MEDICATION ALLERGIES: No Known Drug Allergies (NKDA) ENVIRONMENTAL ALLERGIES: - Substance Allergies None Known - Other Allergies None Known NURSING: - Shower allowing shower - Bladder care per protocol - Skin care per protocol PRECAUTIONS: - Weight Bearing Precaution WBAT left LE ACTIVITIES OOB only with supervision THERAPIES: - Occupational Therapy Cognitive Retraining. Visual Perceptual Training. - Dietary and Nutrition Adequate Nutrition. Nutritional Education. Nutritional Supplements. - Speech Therapy Cognitive Training. Expressive Language Skills. Memory Strategies. Receptive Language Skills. Speech Intelligibility Training. PHYSICAL EXAM - Gen Alert and awake Lying in bed No apparent distress Oriented to: person, time, and place - Skin No skin breakdown. Normacephalic - Eyes No abnormalities - ENMT No abnormalities - Neck No abnormalities - CVS RRR - Resp Clear to auscultation - Abd Soft - GI Non distended Deferred - No abnormalities - Ext No significant edema - MSK 0/5 weakness in left upper and 4+/5 in left lower extremity - Neuro 4/5 strength left upper and lower extremities. - Psych No abnormalities ASSESSMENT: Pt. is a 64 yo Right-handed white female.On 02/05/2020 she was admitted to [facility] hospital with d iagnosis Subarachnoid hemorrhage.Her impairment category is Stroke 01 - Left Body (Right Brain) (01. 1).Pre-morbidly, Pt. was independent/mod-I in Transfers Control, Locomotion, and Self-Care; and she h ad good Balance, Safety Awareness, Social Cognition, Sphincter Control, and Communication.Currently, she has deficits of Transfers Control, Balance, Safety Awareness, and Self-Care.Pt. is now referred t [facility] for acute in-patient rehabilitation in order to maximize patient' s functional independence in activities of daily living, strength, ROM, and mobility.- Rehab Goal Patient has realistic goal of being discharged at assistance level 6-Alcira to reside at Home with Fam angelica/Relatives. MDM/PLAN: - Physical Therapy Gait dysfunction - to improve, our physical therapists will perform initial evaluation of pt's statu s upon admission and devise an individualized program for Gait Training, and Wheel Chair mobility Inability to transfer - to improve, our physical therapists will perform initial evaluation of pt's status upon admission and devise an individualized program for Bed mobility Need for home safety evaluation - to improve, our physical therapists will perform initial evaluatio n of pt's status upon admission and devise an individualized program for Home Evaluation Need in caregiver upon discharge - to improve, our physical therapists will perform initial evaluati on of pt's status upon admission and devise an individualized program for Caregiver Training Edema - to improve, our physical therapists will perform initial evaluation of pt's status upon admi ssion and devise an individualized program for Elevation Training, and Lymphedema Therapy New precaution - to improve, our physical therapists will perform initial evaluation of pt's status upon admission and devise an individualized program for Patient precaution education Poor balance - to improve, our physical therapists will perform initial evaluation of pt's status up on admission and devise an individualized program for Balance Training Weakness - to improve, our physical therapists will perform initial evaluation of pt's status upon a dmission and devise an individualized program for Aquatic Therapy, Neuromuscular Reeducation, and Str engthening Achieving independence - to improve, our physical therapists will perform initial evaluation of pt's status upon admission and devise an individualized program for Community Reintegration Activities - Occupational Therapy ADL deficits - to improve, our occupation therapists will perform initial evaluation of pt's status upon admission and devise an individualized program for Bathing, Bed mobility, Community Reintegratio n, Cooking, Dressing, Eating, Fine Motor Skills, Grooming, Homemaking, Kitchen Mobility, Laundry, Pat ient Education, Safety Awareness, Splinting - Positioning, Transfers(Toilet, Tub, Shower), and Wheel Chair Management Need for medication care manager - to improve, our occupation therapists will perform initial evaluation of pt's status upon admission and devise an individualized program for Caregiver Training Weakness - to improve, our occupation therapists will perform initial evaluation of pt's status upon admission and devise an individualized program for Aquatic Therapy, Balance, Endurance, UE ROM, and UE strengthening - Other See attached MAR (Medication Administration Record) - Diet Type Continue Regular - Diet - Liquid Texture Continue Regular - Tube Feed Continue N/A - Bladder care per protocol - Weight Bearing Precaution WBAT left LE - Skin care per protocol - Diet - Solid Texture Continue Regular - Shower allowing shower for Dementia, TBI, Stroke, or others FUNCTIONAL STATUS: UPDATED AT WEEKLY TEAM CONFERENCE - Walking Same score based on distance walked: 0(N/A) FUNCTIONAL STATUS: - Self-Care A. Eating Ridge B. Grooming Ridge C. Bathing modA D. Dressing - Upper Ridge E. Dressing - Lower modA F. Toileting Ridge - Sphincter Control G. Bladder control Alcira H. Bowel control Alcira - Transfers Control I. Bed/Chair/Wheelchair Ridge J. Toilet Ridge K. Tub/Shower Ridge - Locomotion L. Walk/Wheelchair (B) Ridge M. Stairs modA - Communication N. Comprehension (B) sup O. Expression (B) sup - Social Cognition P. Social Interaction sup Q. Problem Solving sup R. Memory sup - Endurance Fair - Balance Fair - Safety Awareness Fair QI SCORES: - Self-Care A. Eating 04-Supervision or touching assistance B. Oral hygiene 04-Supervision or touching assistance C. Toileting hygiene 03-Partial/moderate assistance E. Shower/bathe self 03-Partial/moderate assistance F. Upper body dressing 03-Partial/moderate assistance G. Lower body dressing 03-Partial/moderate assistance H. Putting on/taking off footwear 88-Not attempted due to medical condition or safety concerns - Mobility A. Roll left and right 03-Partial/moderate assistance B. Sit to lying 03-Partial/moderate assistance C. Lying to sitting on side of bed 03-Partial/moderate assistance D. Sit to stand 03-Partial/moderate assistance E. Chair/tnh-[id number] transfer 03-Partial/moderate assistance F. Toilet transfer 03-Partial/moderate assistance G. Car transfer 88-Not attempted due to medical condition or safety concerns I. Walk 10 feet 88-Not attempted due to medical condition or safety concerns J. Walk 50 feet with two turns 88-Not attempted due to medical condition or safety concerns K. Walk 150 feet 88-Not attempted due to medical condition or safety concerns L. Walking 10 feet on uneven surfaces 88-Not attempted due to medical condition or safety concerns M. 1 step (curb) 88-Not attempted due to medical condition or safety concerns N. 4 steps 88-Not attempted due to medical condition or safety concerns O. 12 steps 88-Not attempted due to medical condition or safety concerns P. Picking up object 01-Dependent R. Wheel 50 feet with two turns 88-Not attempted due to medical condition or safety concerns S. Wheel 150 feet 88-Not attempted due to medical condition or safety concerns - Bladder and Bowel Bladder continence 0-Always continent Bowel continence 0-Always continent - Endurance Poor - Balance Poor - Safety Awareness Poor CURRENT FUNC. DEFICITS: Self-Care, Mobility, Endurance, Balance, and Safety Awareness SIGNATURE PANEL: (CDT)
[2020-03-07] MEDS: TOPIRAMATE 25 MG TAB PO SCH (20:35)
[2020-03-08] MEDS: ENOXAPARIN 40 MG/0.4 ML SQ SCH (06:54)
[2020-03-08] MEDS: LIDOCAINE 4% PATCH TOP SCH (06:55)
[2020-03-08] MEDS: TRAMADOL HCL 50 MG TAB PO PRN ×2 (08:11→19:47)
[2020-03-08] MEDS: modafiniL 100 MG TAB PO SCH (08:12)
[2020-03-08] MEDS: NYSTATIN 500,000 UNIT/5 ML UDC PO SCH ×2 (08:12→19:47)
[2020-03-08] MEDS: FLUTICASONE 50MCG NASAL SPRAY NAS SCH ×2 (08:12→19:49)
[2020-03-08] MEDS: MEGESTROL 40 MG TAB PO SCH ×2 (08:13→19:48)
[2020-03-08] MEDS: POTASSIUM 25 MEQ EFFERV TAB PO SCH (08:13)
[2020-03-08] MEDS: SODIUM CHLORIDE 1 GM TAB PO SCH ×2 (08:13→17:08)
[2020-03-08] MEDS: DULOXETINE 20 MG CAP PO SCH (08:14)
[2020-03-08] MEDS: AMANTADINE 100 MG CAP PO SCH (08:14)
[2020-03-08] MEDS: LORATADINE 10 MG TAB PO SCH (08:14)
[2020-03-08] MEDS: carvediloL 6.25 MG TAB PO SCH ×2 (08:14→19:47)
[2020-03-08] MEDS: TAMSULOSIN 0.4 MG SR CAP PO SCH (08:14)
[2020-03-08] MEDS: MAGNESIUM OXIDE 400 MG TAB PO SCH (08:15)
[2020-03-08] MEDS: PROMOD 30 ML DOSE PO SCH ×2 (08:15→19:49)
[2020-03-08] MEDS: ENSURE PUDDING 4 OZ CUP PO SCH ×2 (08:15→20:00)
--- NOTE | 2020-03-08 17:52 | R.PN ---
ENCOUNTER DATE AND TIME: 03/08/2020 17:48 (CDT) NAME JEREMY GROSS DATE OF : 1955 DATE OF ADMISSION: 02/22/2020 14:50 (CDT) Subarachnoid hemorrhageCHIEF COMPLAINT: Subarachnoid hemorrhage with dense left upper extremity weakness, depression SUBJECTIVE: Pt denied any depression. Pt denied any Shortness of Breath. Carton Forming Machine Tender 0.72, potassium 4.2. WBC 5.8, Hgb 11.0, prealbumin 30.1, UA positive nitrite, 1+ esterase, > 50 b acteria, urine cultures show 4+ E-Coli sensitive to bactrim. She completed Bactrim DS, bid for 7 days . Her left upper extremity strength has improved to 3/5. She ambulated 1250' without an assistive devic e and standby assistance. Up and down 15 steps with contact guard assistance. VITAL SIGNS Temperature: 98.8 F SBP/DBP: 109/69 Pulse: 99 Resp: 16 MEDICATION ALLERGIES: No Known Drug Allergies (NKDA) ENVIRONMENTAL ALLERGIES: - Substance Allergies None Known - Other Allergies None Known NURSING: - Shower allowing shower - Bladder care per protocol - Skin care per protocol PRECAUTIONS: - Weight Bearing Precaution WBAT left LE ACTIVITIES OOB only with supervision THERAPIES: - Occupational Therapy Cognitive Retraining. Visual Perceptual Training. - Dietary and Nutrition Adequate Nutrition. Nutritional Education. Nutritional Supplements. - Speech Therapy Cognitive Training. Expressive Language Skills. Memory Strategies. Receptive Language Skills. Speech Intelligibility Training. PHYSICAL EXAM - Gen Alert and awake Lying in bed No apparent distress Oriented to: person, time, and place - Skin No skin breakdown. Normacephalic - Eyes No abnormalities - ENMT No abnormalities - Neck No abnormalities - CVS RRR - Resp Clear to auscultation - Abd Soft - GI Non distended Deferred - No abnormalities - Ext No significant edema - MSK 0/5 weakness in left upper and 4+/5 in left lower extremity - Neuro 4/5 strength left upper and lower extremities. - Psych No abnormalities ASSESSMENT: Pt. is a 64 yo Right-handed white female.On 02/05/2020 she was admitted to [facility] hospital with d iagnosis Subarachnoid hemorrhage.Her impairment category is Stroke 01 - Left Body (Right Brain) (01. 1).Pre-morbidly, Pt. was independent/mod-I in Transfers Control, Locomotion, and Self-Care; and she h ad good Balance, Safety Awareness, Social Cognition, Sphincter Control, and Communication.Currently, she has deficits of Transfers Control, Balance, Safety Awareness, and Self-Care.Pt. is now referred t [facility] for acute in-patient rehabilitation in order to maximize patient' s functional independence in activities of daily living, strength, ROM, and mobility.- Rehab Goal Patient has realistic goal of being discharged at assistance level 6-Alcira to reside at Home with Fam angelica/Relatives. MDM/PLAN: - Physical Therapy Gait dysfunction - to improve, our physical therapists will perform initial evaluation of pt's statu s upon admission and devise an individualized program for Gait Training, and Wheel Chair mobility Inability to transfer - to improve, our physical therapists will perform initial evaluation of pt's status upon admission and devise an individualized program for Bed mobility Need for home safety evaluation - to improve, our physical therapists will perform initial evaluatio n of pt's status upon admission and devise an individualized program for Home Evaluation Need in caregiver upon discharge - to improve, our physical therapists will perform initial evaluati on of pt's status upon admission and devise an individualized program for Caregiver Training Edema - to improve, our physical therapists will perform initial evaluation of pt's status upon admi ssion and devise an individualized program for Elevation Training, and Lymphedema Therapy New precaution - to improve, our physical therapists will perform initial evaluation of pt's status upon admission and devise an individualized program for Patient precaution education Poor balance - to improve, our physical therapists will perform initial evaluation of pt's status up on admission and devise an individualized program for Balance Training Weakness - to improve, our physical therapists will perform initial evaluation of pt's status upon a dmission and devise an individualized program for Aquatic Therapy, Neuromuscular Reeducation, and Str engthening Achieving independence - to improve, our physical therapists will perform initial evaluation of pt's status upon admission and devise an individualized program for Community Reintegration Activities - Occupational Therapy ADL deficits - to improve, our occupation therapists will perform initial evaluation of pt's status upon admission and devise an individualized program for Bathing, Bed mobility, Community Reintegratio n, Cooking, Dressing, Eating, Fine Motor Skills, Grooming, Homemaking, Kitchen Mobility, Laundry, Pat ient Education, Safety Awareness, Splinting - Positioning, Transfers(Toilet, Tub, Shower), and Wheel Chair Management Need for gericare aide - to improve, our occupation therapists will perform initial evaluation of pt's status upon admission and devise an individualized program for Caregiver Training Weakness - to improve, our occupation therapists will perform initial evaluation of pt's status upon admission and devise an individualized program for Aquatic Therapy, Balance, Endurance, UE ROM, and UE strengthening - Other See attached MAR (Medication Administration Record) - Diet Type Continue Regular - Diet - Liquid Texture Continue Regular - Tube Feed Continue N/A - Bladder care per protocol - Weight Bearing Precaution WBAT left LE - Skin care per protocol - Diet - Solid Texture Continue Regular - Shower allowing shower for Dementia, TBI, Stroke, or others FUNCTIONAL STATUS: UPDATED AT WEEKLY TEAM CONFERENCE - Walking Same score based on distance walked: 0(N/A) FUNCTIONAL STATUS: - Self-Care A. Eating Ridge B. Grooming Ridge C. Bathing modA D. Dressing - Upper Ridge E. Dressing - Lower modA F. Toileting Ridge - Sphincter Control G. Bladder control Alcira H. Bowel control Alcira - Transfers Control I. Bed/Chair/Wheelchair Ridge J. Toilet Ridge K. Tub/Shower Ridge - Locomotion L. Walk/Wheelchair (B) Ridge M. Stairs modA - Communication N. Comprehension (B) sup O. Expression (B) sup - Social Cognition P. Social Interaction sup Q. Problem Solving sup R. Memory sup - Endurance Fair - Balance Fair - Safety Awareness Fair QI SCORES: - Self-Care A. Eating 04-Supervision or touching assistance B. Oral hygiene 04-Supervision or touching assistance C. Toileting hygiene 03-Partial/moderate assistance E. Shower/bathe self 03-Partial/moderate assistance F. Upper body dressing 03-Partial/moderate assistance G. Lower body dressing 03-Partial/moderate assistance H. Putting on/taking off footwear 88-Not attempted due to medical condition or safety concerns - Mobility A. Roll left and right 03-Partial/moderate assistance B. Sit to lying 03-Partial/moderate assistance C. Lying to sitting on side of bed 03-Partial/moderate assistance D. Sit to stand 03-Partial/moderate assistance E. Chair/ewf-[id number] transfer 03-Partial/moderate assistance F. Toilet transfer 03-Partial/moderate assistance G. Car transfer 88-Not attempted due to medical condition or safety concerns I. Walk 10 feet 88-Not attempted due to medical condition or safety concerns J. Walk 50 feet with two turns 88-Not attempted due to medical condition or safety concerns K. Walk 150 feet 88-Not attempted due to medical condition or safety concerns L. Walking 10 feet on uneven surfaces 88-Not attempted due to medical condition or safety concerns M. 1 step (curb) 88-Not attempted due to medical condition or safety concerns N. 4 steps 88-Not attempted due to medical condition or safety concerns O. 12 steps 88-Not attempted due to medical condition or safety concerns P. Picking up object 01-Dependent R. Wheel 50 feet with two turns 88-Not attempted due to medical condition or safety concerns S. Wheel 150 feet 88-Not attempted due to medical condition or safety concerns - Bladder and Bowel Bladder continence 0-Always continent Bowel continence 0-Always continent - Endurance Poor - Balance Poor - Safety Awareness Poor CURRENT FUNC. DEFICITS: Self-Care, Mobility, Endurance, Balance, and Safety Awareness SIGNATURE PANEL: (CDT)
[2020-03-08] MEDS: ACETAMINOPHEN 325 MG TABLET PO PRN (19:48)
[2020-03-08] MEDS: DOCUSATE NA/SENNA CONC 1 TAB PO PRN (19:49)
[2020-03-08] MEDS: TOPIRAMATE 25 MG TAB PO SCH (19:59)
[2020-03-08] MEDS: MELATONIN 3 MG TABLET PO PRN (19:59)
[2020-03-09] MEDS: PROMOD 30 ML DOSE PO SCH ×2 (08:00→20:07)
--- NOTE | 2020-03-09 08:59 | RAD REPORT ---
EXAM DESCRIPTION: RAD - Barium Swallow Modified - 03/09/2020 8:50 am CLINICAL HISTORY: CVA FINDINGS: LARYNGEAL PENETRATION: CLEARED , FLASH PENETRATION WITH TSP THIN AND THIN LIQUID VIA SIP C UP WHEN SWALLOWING BARIUM TABLET PHARYNGEAL RESIDUE: MILD - MOD VALLECULAR , PYRIFORM, POSTERIOR WALL OTHER: THERE IS MILD REDUCED ORAL TRANSIT WITH PUREED ONLY . SWALLOW ONSET IS TIMELY. THERE IS REDUCED BASE OF TONGUE RETRACTION , REDUCED LARYNGEAL ELEVATION AND REDUCED CONTRACTION OF T HE POSTERIOR PHARYNGEAL WALL. THERE IS MILD FLASH PENETRATION THAT CLEARS WITH INTAL TSP THIN AND WIT H CUP SIP OF THIN WHEN SWALLOWING BARIUM TABLET ONLY. THERE WAS NO ASPIRATION VIEWED WITH ANY CONSIST ENCY DURING THE STUDY. MILD TO MOD RESIDUAL WAS NOTED IN THE VALLECULAR PYRIFORM SINUSES AND THE POST ERIOR PHARYNGEAL WALL. THIS WAS REDUCED WITH A RESWALLOW AND OR LIQUID WASH. THE BARIUM TABLET REMAINED IN THE VALLECULAR AND THEN THE PYRIFORMS MOMENTARILY , IT WAS PASSED WITH ADD LIQUIDS. THERE WAS MOD TO SIGN ESOPHAGEAL STASIS NOTED WITH FINAL PUREED SOME REFLUX NOTED . Sixteen fluoroscopic spot images. Fluoroscopy time 4.5 minutes
[2020-03-09] MEDS: ENSURE PUDDING 4 OZ CUP PO SCH ×3 (09:00→20:08)
[2020-03-09] MEDS: FLUTICASONE 50MCG NASAL SPRAY NAS SCH ×2 (09:20→20:00)
[2020-03-09] MEDS: ENOXAPARIN 40 MG/0.4 ML SQ SCH (09:20)
[2020-03-09] MEDS: NYSTATIN 500,000 UNIT/5 ML UDC PO SCH ×2 (09:21→20:07)
[2020-03-09] MEDS: MAGNESIUM OXIDE 400 MG TAB PO SCH ×2 (09:21→09:22)
[2020-03-09] MEDS: LIDOCAINE 4% PATCH TOP SCH (09:21)
[2020-03-09] MEDS: POTASSIUM 25 MEQ EFFERV TAB PO SCH (09:21)
[2020-03-09] MEDS: TAMSULOSIN 0.4 MG SR CAP PO SCH (09:22)
[2020-03-09] MEDS: AMANTADINE 100 MG CAP PO SCH (09:22)
[2020-03-09] MEDS: modafiniL 100 MG TAB PO SCH (09:22)
[2020-03-09] MEDS: DULOXETINE 20 MG CAP PO SCH (09:22)
[2020-03-09] MEDS: ACETAMINOPHEN 325 MG TABLET PO PRN (09:22)
[2020-03-09] MEDS: LORATADINE 10 MG TAB PO SCH (09:23)
[2020-03-09] MEDS: carvediloL 6.25 MG TAB PO SCH ×2 (09:24→20:10)
[2020-03-09] MEDS: SODIUM CHLORIDE 1 GM TAB PO SCH ×2 (09:24→17:15)
[2020-03-09] MEDS: MEGESTROL 40 MG TAB PO SCH ×2 (09:25→20:09)
--- NOTE | 2020-03-09 14:05 | RAD REPORT ---
EXAM DESCRIPTION: RAD - Sacrum - 03/09/2020 1:57 pm CLINICAL HISTORY: pain COMPARISON: No comparisons TECHNIQUE: Lateral and 15 degree cephalad views were obtained. FINDINGS: Lateral view shows no evidence for fracture. No displacement or angulation abnormality of the coccygeal segments. There is no presacral soft tissue thickening seen. No pathologic bone process . SI joint degenerative change is very minimal. No acute sacral ala finding. Much of the sacrum and a ll of the coccyx are obscured on the AP projection due to contrast within the rectosigmoid colon. Lower lumbar facet joint degenerative changes are present spanning L3-S1. IMPRESSION: Exam is somewhat limited as detailed. No acute sacrum or coccyx finding identifiable. Lower lumbar degenerative change in the facet joints L3-S1.
--- NOTE | 2020-03-09 14:06 | RAD REPORT ---
EXAM DESCRIPTION: RAD - Lumbar Spine 3 Views - 03/09/2020 1:58 pm CLINICAL HISTORY: pain COMPARISON: Barium Swallow Modified dated 03/09/2020; Barium Swallow Modified dated 02/23/2020 FINDINGS: A three-view lumbar spine examination was performed. Lumbar bodies are normal in height and normal in AP alignment. There is a very minimal left convex cu rvature. No fracture or acute bony process seen. L4-5 and L5-S1 facet joint degenerative changes are present along with disc space narrowing. L3-4 facet joint degenerative changes are present. No other significant findings. No pars defects identified. There is a large amount of contrast in the colon. This partially obscures the lumbar spine. IMPRESSION: Degenerative disc disease present L4-5 and L5-S1. Degenerative facet joint changes L3-S1. No acute findings seen.
--- NOTE | 2020-03-09 14:22 | FAST ---
ENCOUNTER DATE AND TIME: 03/09/2020 08:00 (CDT) NAME JEREMY GROSS DATE OF : 1955 DATE OF ADMISSION: 02/22/2020 14:50 (CDT) PHONE: AGE: 64 N# [id number] GENDER: Female ENCOUNTER PHYSICIAN: Dr. Florentin Hoover M.D. ADMISSION DIAGNOSIS: - Stroke 01 - Left Body (Right Brain) (01.1) Subarachnoid hemorrhage. EATING: Not assessed/no information CODE: - ORAL HYGIENE: ORAL HYGIENE - STEP 1: Does the patient complete the activity by him/herself with no assistance (physical, verbal/nonverbal cueing, setup/clean-up)? No. ORAL HYGIENE - STEP 2: Does the patient need only setup/clean-up assistance from one helper? No. ORAL HYGIENE - STEP 3: Does the patient need only verbal/nonverbal cueing or touching/steadying/contact guard assistance fro m one helper? Yes. 1. [id number] ADMISSION PERFORMANCE: Supervision or touching assistance CODE: 04 TOILETING HYGIENE: Not assessed/no information CODE: - BATHING: SHOWER/BATHE SELF - STEP 1: Does the patient complete the activity by him/herself with no assistance (physical, verbal/nonverbal cueing, setup/clean-up)? No. SHOWER/BATHE SELF - STEP 2: Does the patient need only setup/clean-up assistance from one helper? No. SHOWER/BATHE SELF - STEP 3: Does the patient need only verbal/nonverbal cueing or touching/steadying/contact guard assistance fro m one helper? Yes. 1. [id number] ADMISSION PERFORMANCE: Supervision or touching assistance CODE: 04 DRESSING - UPPER BODY: DRESSING - UPPER BODY - STEP 1: Does the patient complete the activity by him/herself with no assistance (physical, verbal/nonverbal cueing, setup/clean-up)? No. DRESSING - UPPER BODY - STEP 2: Does the patient need only setup/clean-up assistance from one helper? No. DRESSING - UPPER BODY - STEP 3: Does the patient need only verbal/nonverbal cueing or touching/steadying/contact guard assistance fro m one helper? Yes. 1. [id number] ADMISSION PERFORMANCE: Supervision or touching assistance CODE: 04 DRESSING - LOWER BODY: DRESSING - LOWER BODY - STEP 1: Does the patient complete the activity by him/herself with no assistance (physical, verbal/nonverbal cueing, setup/clean-up)? No. DRESSING - LOWER BODY - STEP 2: Does the patient need only setup/clean-up assistance from one helper? No. DRESSING - LOWER BODY - STEP 3: Does the patient need only verbal/nonverbal cueing or touching/steadying/contact guard assistance fro m one helper? Yes. 1. [id number] ADMISSION PERFORMANCE: Supervision or touching assistance CODE: 04 PUTTING ON/TAKING OFF FOOTWEAR: FOOTWEAR - STEP 1: Does the patient complete the activity by him/herself with no assistance (physical, verbal/nonverbal cueing, setup/clean-up)? No. FOOTWEAR - STEP 2: Does the patient need only setup/clean-up assistance from one helper? No. FOOTWEAR - STEP 3: Does the patient need only verbal/nonverbal cueing or touching/steadying/contact guard assistance fro m one helper? Yes. 1. [id number] ADMISSION PERFORMANCE: Supervision or touching assistance CODE: 04 DOES THE PATIENT USE A WHEELCHAIR/SCOOTER? CODE: EXPR INDICATE THE TYPE OF WHEELCHAIR/SCOOTER USED: CODE: EXPR INDICATE THE TYPE OF WHEELCHAIR/SCOOTER USED: CODE: EXPR BLADDER AND BOWEL: CODE: EXPR CODE: EXPR SIGNATURE PANEL: The following modified sections: 1. [id number] Admission Performance, 1. [id number] Admission Performance, 1. [id number] Admission Performance, 1. [id number] Admission Performance, 1. [id number] Admission Performance were [electronically] signed by SKY Michelle on SatMar 09 2020 14:21:34 GMT-0500 (Central Daylight Time)
--- NOTE | 2020-03-09 17:15 | R.PN ---
ENCOUNTER DATE AND TIME: 03/09/2020 17:12 (CDT) NAME JEREMY GROSS DATE OF : 1955 DATE OF ADMISSION: 02/22/2020 14:50 (CDT) Subarachnoid hemorrhageCHIEF COMPLAINT: Subarachnoid hemorrhage with dense left upper extremity weakness, depression SUBJECTIVE: Pt denied any depression. Pt denied any Shortness of Breath. Beam Dyer Recessed Vat 0.72, potassium 4.2. WBC 5.8, Hgb 11.0, prealbumin 30.1, UA positive nitrite, 1+ esterase, > 50 b acteria, urine cultures show 4+ E-Coli sensitive to bactrim. She completed Bactrim DS, bid for 7 days . Her left upper extremity strength has improved to 3/5. She ambulated 1250' without an assistive devic e and standby assistance. Up and down 15 steps with contact guard assistance. Self-propelled wheelcha ir 250' with independence. VITAL SIGNS Temperature: 98.3 F SBP/DBP: 111/72 Pulse: 93 Resp: 16 MEDICATION ALLERGIES: No Known Drug Allergies (NKDA) ENVIRONMENTAL ALLERGIES: - Substance Allergies None Known - Other Allergies None Known NURSING: - Shower allowing shower - Bladder care per protocol - Skin care per protocol PRECAUTIONS: - Weight Bearing Precaution WBAT left LE ACTIVITIES OOB only with supervision THERAPIES: - Occupational Therapy Cognitive Retraining. Visual Perceptual Training. - Dietary and Nutrition Adequate Nutrition. Nutritional Education. Nutritional Supplements. - Speech Therapy Cognitive Training. Expressive Language Skills. Memory Strategies. Receptive Language Skills. Speech Intelligibility Training. PHYSICAL EXAM - Gen Alert and awake Lying in bed No apparent distress Oriented to: person, time, and place - Skin No skin breakdown. Normacephalic - Eyes No abnormalities - ENMT No abnormalities - Neck No abnormalities - CVS RRR - Resp Clear to auscultation - Abd Soft - GI Non distended Deferred - No abnormalities - Ext No significant edema - MSK 0/5 weakness in left upper and 4+/5 in left lower extremity - Neuro 4/5 strength left upper and lower extremities. - Psych No abnormalities ASSESSMENT: Pt. is a 64 yo Right-handed white female.On 02/05/2020 she was admitted to [facility] hospital with d iagnosis Subarachnoid hemorrhage.Her impairment category is Stroke 01 - Left Body (Right Brain) (01. 1).Pre-morbidly, Pt. was independent/mod-I in Transfers Control, Locomotion, and Self-Care; and she h ad good Balance, Safety Awareness, Social Cognition, Sphincter Control, and Communication.Currently, she has deficits of Transfers Control, Balance, Safety Awareness, and Self-Care.Pt. is now referred t [facility] for acute in-patient rehabilitation in order to maximize patient' s functional independence in activities of daily living, strength, ROM, and mobility.- Rehab Goal Patient has realistic goal of being discharged at assistance level 6-Alcira to reside at Home with Fam angelica/Relatives. MDM/PLAN: - Physical Therapy Gait dysfunction - to improve, our physical therapists will perform initial evaluation of pt's statu s upon admission and devise an individualized program for Gait Training, and Wheel Chair mobility Inability to transfer - to improve, our physical therapists will perform initial evaluation of pt's status upon admission and devise an individualized program for Bed mobility Need for home safety evaluation - to improve, our physical therapists will perform initial evaluatio n of pt's status upon admission and devise an individualized program for Home Evaluation Need in caregiver upon discharge - to improve, our physical therapists will perform initial evaluati on of pt's status upon admission and devise an individualized program for Caregiver Training Edema - to improve, our physical therapists will perform initial evaluation of pt's status upon admi ssion and devise an individualized program for Elevation Training, and Lymphedema Therapy New precaution - to improve, our physical therapists will perform initial evaluation of pt's status upon admission and devise an individualized program for Patient precaution education Poor balance - to improve, our physical therapists will perform initial evaluation of pt's status up on admission and devise an individualized program for Balance Training Weakness - to improve, our physical therapists will perform initial evaluation of pt's status upon a dmission and devise an individualized program for Aquatic Therapy, Neuromuscular Reeducation, and Str engthening Achieving independence - to improve, our physical therapists will perform initial evaluation of pt's status upon admission and devise an individualized program for Community Reintegration Activities - Occupational Therapy ADL deficits - to improve, our occupation therapists will perform initial evaluation of pt's status upon admission and devise an individualized program for Bathing, Bed mobility, Community Reintegratio n, Cooking, Dressing, Eating, Fine Motor Skills, Grooming, Homemaking, Kitchen Mobility, Laundry, Pat ient Education, Safety Awareness, Splinting - Positioning, Transfers(Toilet, Tub, Shower), and Wheel Chair Management Need for child care center administrator - to improve, our occupation therapists will perform initial evaluation of pt's status upon admission and devise an individualized program for Caregiver Training Weakness - to improve, our occupation therapists will perform initial evaluation of pt's status upon admission and devise an individualized program for Aquatic Therapy, Balance, Endurance, UE ROM, and UE strengthening - Other See attached MAR (Medication Administration Record) - Diet Type Continue Regular - Diet - Liquid Texture Continue Regular - Tube Feed Continue N/A - Bladder care per protocol - Weight Bearing Precaution WBAT left LE - Skin care per protocol - Diet - Solid Texture Continue Regular - Shower allowing shower for Dementia, TBI, Stroke, or others FUNCTIONAL STATUS: UPDATED AT WEEKLY TEAM CONFERENCE - Walking Same score based on distance walked: 0(N/A) FUNCTIONAL STATUS: - Self-Care A. Eating Ridge B. Grooming Ridge C. Bathing modA D. Dressing - Upper Ridge E. Dressing - Lower modA F. Toileting Ridge - Sphincter Control G. Bladder control Alcira H. Bowel control Alcira - Transfers Control I. Bed/Chair/Wheelchair Ridge J. Toilet Ridge K. Tub/Shower Ridge - Locomotion L. Walk/Wheelchair (B) Ridge M. Stairs modA - Communication N. Comprehension (B) sup O. Expression (B) sup - Social Cognition P. Social Interaction sup Q. Problem Solving sup R. Memory sup - Endurance Fair - Balance Fair - Safety Awareness Fair QI SCORES: - Self-Care A. Eating 04-Supervision or touching assistance B. Oral hygiene 04-Supervision or touching assistance C. Toileting hygiene 03-Partial/moderate assistance E. Shower/bathe self 03-Partial/moderate assistance F. Upper body dressing 03-Partial/moderate assistance G. Lower body dressing 03-Partial/moderate assistance H. Putting on/taking off footwear 88-Not attempted due to medical condition or safety concerns - Mobility A. Roll left and right 03-Partial/moderate assistance B. Sit to lying 03-Partial/moderate assistance C. Lying to sitting on side of bed 03-Partial/moderate assistance D. Sit to stand 03-Partial/moderate assistance E. Chair/[id number]-cxsur transfer 03-Partial/moderate assistance F. Toilet transfer 03-Partial/moderate assistance G. Car transfer 88-Not attempted due to medical condition or safety concerns I. Walk 10 feet 88-Not attempted due to medical condition or safety concerns J. Walk 50 feet with two turns 88-Not attempted due to medical condition or safety concerns K. Walk 150 feet 88-Not attempted due to medical condition or safety concerns L. Walking 10 feet on uneven surfaces 88-Not attempted due to medical condition or safety concerns M. 1 step (curb) 88-Not attempted due to medical condition or safety concerns N. 4 steps 88-Not attempted due to medical condition or safety concerns O. 12 steps 88-Not attempted due to medical condition or safety concerns P. Picking up object 01-Dependent R. Wheel 50 feet with two turns 88-Not attempted due to medical condition or safety concerns S. Wheel 150 feet 88-Not attempted due to medical condition or safety concerns - Bladder and Bowel Bladder continence 0-Always continent Bowel continence 0-Always continent - Endurance Poor - Balance Poor - Safety Awareness Poor CURRENT FUNC. DEFICITS: Self-Care, Mobility, Endurance, Balance, and Safety Awareness SIGNATURE PANEL: (CDT)
[2020-03-09] MEDS: MELATONIN 3 MG TABLET PO PRN (20:07)
[2020-03-09] MEDS: TOPIRAMATE 25 MG TAB PO SCH (20:07)
[2020-03-09] MEDS: TRAMADOL HCL 50 MG TAB PO PRN (20:09)
[2020-03-10 05:57] LABS: Absolute Lymphocytes (CBC) 1.5 K/uL (0.7-4.9); Basophils % 0.4 % (0-1.3); Hematocrit 30.7 % (36.0-45.0); Lymphocytes % 33.8 % (15.3-44.8); MPV 7.7 fL (7.6-11.3); RBC Red Blood Cell Count 3.18 M/uL (3.86-4.86)
[2020-03-10 06:03] LABS: Albumin 2.8 g/dL (3.4-5.0); BUN Blood Urea Nitrogen 6 mg/dL (7-18); Bicarbonate 25 mmol/L (21-32); Glucose Level 92 mg/dL (74-106); Magnesium 2.3 mg/dL (1.8-2.4); Potassium 3.8 mmol/L (3.5-5.1); Prealbumin 26.7 mg/dL (20-40); Sodium Level 143 mmol/L (136-145)
[2020-03-10] MEDS: FLUTICASONE 50MCG NASAL SPRAY NAS SCH ×2 (07:02→20:00)
[2020-03-10] MEDS: ENOXAPARIN 40 MG/0.4 ML SQ SCH (07:03)
[2020-03-10] MEDS: LIDOCAINE 4% PATCH TOP SCH (07:03)
[2020-03-10] MEDS: SODIUM CHLORIDE 1 GM TAB PO SCH ×2 (07:09→16:35)
[2020-03-10] MEDS: NYSTATIN 500,000 UNIT/5 ML UDC PO SCH ×2 (07:09→20:58)
[2020-03-10] MEDS: POTASSIUM 25 MEQ EFFERV TAB PO SCH (07:10)
[2020-03-10] MEDS: MEGESTROL 40 MG TAB PO SCH ×2 (07:10→20:58)
[2020-03-10] MEDS: carvediloL 6.25 MG TAB PO SCH ×2 (07:12→20:00)
[2020-03-10] MEDS: PROMOD 30 ML DOSE PO SCH ×2 (07:12→20:59)
[2020-03-10] MEDS: DULOXETINE 20 MG CAP PO SCH (07:16)
[2020-03-10] MEDS: TAMSULOSIN 0.4 MG SR CAP PO SCH (07:16)
[2020-03-10] MEDS: LORATADINE 10 MG TAB PO SCH (07:16)
[2020-03-10] MEDS: AMANTADINE 100 MG CAP PO SCH (07:16)
[2020-03-10] MEDS: modafiniL 100 MG TAB PO SCH (07:17)
[2020-03-10] MEDS: ENSURE PUDDING 4 OZ CUP PO SCH ×3 (07:18→20:59)
[2020-03-10] MEDS: MAGNESIUM OXIDE 400 MG TAB PO SCH (07:19)
[2020-03-10] MEDS: ONDANSETRON 4 MG (ODT) TAB PO PRN (07:58)
[2020-03-10] MEDS: TRAMADOL HCL 50 MG TAB PO PRN ×2 (08:52→20:59)
--- NOTE | 2020-03-10 17:03 | R.PN ---
ENCOUNTER DATE AND TIME: 03/10/2020 16:59 (CDT) NAME JEREMY GROSS DATE OF : 1955 DATE OF ADMISSION: 02/22/2020 14:50 (CDT) Subarachnoid hemorrhageCHIEF COMPLAINT: Subarachnoid hemorrhage with dense left upper extremity weakness, depression SUBJECTIVE: Pt denied any depression. Pt denied any Shortness of Breath. Starch Cooker 0.59, potassium 4.2. WBC 4.5, Hgb 10.2, prealbumin 26.7, UA positive nitrite, 1+ esterase, > 50 b acteria, urine cultures show 4+ E-Coli sensitive to bactrim. She completed Bactrim DS, bid for 7 days . Her left upper extremity strength has improved to 3/5. She ambulated 1500' without an assistive devic e and standby assistance. Up and down 22 steps with contact guard assistance. Self-propelled wheelcha ir 250' with independence. VITAL SIGNS Temperature: 98.9 F SBP/DBP: 109/69 Pulse: 98 Resp: 18 MEDICATION ALLERGIES: No Known Drug Allergies (NKDA) ENVIRONMENTAL ALLERGIES: - Substance Allergies None Known - Other Allergies None Known NURSING: - Shower allowing shower - Bladder care per protocol - Skin care per protocol PRECAUTIONS: - Weight Bearing Precaution WBAT left LE ACTIVITIES OOB only with supervision THERAPIES: - Occupational Therapy Cognitive Retraining. Visual Perceptual Training. - Dietary and Nutrition Adequate Nutrition. Nutritional Education. Nutritional Supplements. - Speech Therapy Cognitive Training. Expressive Language Skills. Memory Strategies. Receptive Language Skills. Speech Intelligibility Training. PHYSICAL EXAM - Gen Alert and awake Lying in bed No apparent distress Oriented to: person, time, and place - Skin No skin breakdown. Normacephalic - Eyes No abnormalities - ENMT No abnormalities - Neck No abnormalities - CVS RRR - Resp Clear to auscultation - Abd Soft - GI Non distended Deferred - No abnormalities - Ext No significant edema - MSK 0/5 weakness in left upper and 4+/5 in left lower extremity - Neuro 4/5 strength left upper and lower extremities. - Psych No abnormalities ASSESSMENT: Pt. is a 64 yo Right-handed white female.On 02/05/2020 she was admitted to [facility] hospital with d iagnosis Subarachnoid hemorrhage.Her impairment category is Stroke 01 - Left Body (Right Brain) (01. 1).Pre-morbidly, Pt. was independent/mod-I in Transfers Control, Locomotion, and Self-Care; and she h ad good Balance, Safety Awareness, Social Cognition, Sphincter Control, and Communication.Currently, she has deficits of Transfers Control, Balance, Safety Awareness, and Self-Care.Pt. is now referred t [facility] for acute in-patient rehabilitation in order to maximize patient' s functional independence in activities of daily living, strength, ROM, and mobility.- Rehab Goal Patient has realistic goal of being discharged at assistance level 6-Alcira to reside at Home with Fam angelica/Relatives. MDM/PLAN: - Physical Therapy Gait dysfunction - to improve, our physical therapists will perform initial evaluation of pt's statu s upon admission and devise an individualized program for Gait Training, and Wheel Chair mobility Inability to transfer - to improve, our physical therapists will perform initial evaluation of pt's status upon admission and devise an individualized program for Bed mobility Need for home safety evaluation - to improve, our physical therapists will perform initial evaluatio n of pt's status upon admission and devise an individualized program for Home Evaluation Need in caregiver upon discharge - to improve, our physical therapists will perform initial evaluati on of pt's status upon admission and devise an individualized program for Caregiver Training Edema - to improve, our physical therapists will perform initial evaluation of pt's status upon admi ssion and devise an individualized program for Elevation Training, and Lymphedema Therapy New precaution - to improve, our physical therapists will perform initial evaluation of pt's status upon admission and devise an individualized program for Patient precaution education Poor balance - to improve, our physical therapists will perform initial evaluation of pt's status up on admission and devise an individualized program for Balance Training Weakness - to improve, our physical therapists will perform initial evaluation of pt's status upon a dmission and devise an individualized program for Aquatic Therapy, Neuromuscular Reeducation, and Str engthening Achieving independence - to improve, our physical therapists will perform initial evaluation of pt's status upon admission and devise an individualized program for Community Reintegration Activities - Occupational Therapy ADL deficits - to improve, our occupation therapists will perform initial evaluation of pt's status upon admission and devise an individualized program for Bathing, Bed mobility, Community Reintegratio n, Cooking, Dressing, Eating, Fine Motor Skills, Grooming, Homemaking, Kitchen Mobility, Laundry, Pat ient Education, Safety Awareness, Splinting - Positioning, Transfers(Toilet, Tub, Shower), and Wheel Chair Management Need for rn acute care - to improve, our occupation therapists will perform initial evaluation of pt's status upon admission and devise an individualized program for Caregiver Training Weakness - to improve, our occupation therapists will perform initial evaluation of pt's status upon admission and devise an individualized program for Aquatic Therapy, Balance, Endurance, UE ROM, and UE strengthening - Other See attached MAR (Medication Administration Record) - Diet Type Continue Regular - Diet - Liquid Texture Continue Regular - Tube Feed Continue N/A - Bladder care per protocol - Weight Bearing Precaution WBAT left LE - Skin care per protocol - Diet - Solid Texture Continue Regular - Shower allowing shower for Dementia, TBI, Stroke, or others FUNCTIONAL STATUS: UPDATED AT WEEKLY TEAM CONFERENCE - Walking Same score based on distance walked: 0(N/A) FUNCTIONAL STATUS: - Self-Care A. Eating Ridge B. Grooming Ridge C. Bathing modA D. Dressing - Upper Ridge E. Dressing - Lower modA F. Toileting Ridge - Sphincter Control G. Bladder control Alcira H. Bowel control Alcira - Transfers Control I. Bed/Chair/Wheelchair Ridge J. Toilet Ridge K. Tub/Shower Ridge - Locomotion L. Walk/Wheelchair (B) Ridge M. Stairs modA - Communication N. Comprehension (B) sup O. Expression (B) sup - Social Cognition P. Social Interaction sup Q. Problem Solving sup R. Memory sup - Endurance Fair - Balance Fair - Safety Awareness Fair QI SCORES: - Self-Care A. Eating 04-Supervision or touching assistance B. Oral hygiene 04-Supervision or touching assistance C. Toileting hygiene 03-Partial/moderate assistance E. Shower/bathe self 03-Partial/moderate assistance F. Upper body dressing 03-Partial/moderate assistance G. Lower body dressing 03-Partial/moderate assistance H. Putting on/taking off footwear 88-Not attempted due to medical condition or safety concerns - Mobility A. Roll left and right 03-Partial/moderate assistance B. Sit to lying 03-Partial/moderate assistance C. Lying to sitting on side of bed 03-Partial/moderate assistance D. Sit to stand 03-Partial/moderate assistance E. Chair/vjw-tk-[id number] transfer 03-Partial/moderate assistance F. Toilet transfer 03-Partial/moderate assistance G. Car transfer 88-Not attempted due to medical condition or safety concerns I. Walk 10 feet 88-Not attempted due to medical condition or safety concerns J. Walk 50 feet with two turns 88-Not attempted due to medical condition or safety concerns K. Walk 150 feet 88-Not attempted due to medical condition or safety concerns L. Walking 10 feet on uneven surfaces 88-Not attempted due to medical condition or safety concerns M. 1 step (curb) 88-Not attempted due to medical condition or safety concerns N. 4 steps 88-Not attempted due to medical condition or safety concerns O. 12 steps 88-Not attempted due to medical condition or safety concerns P. Picking up object 01-Dependent R. Wheel 50 feet with two turns 88-Not attempted due to medical condition or safety concerns S. Wheel 150 feet 88-Not attempted due to medical condition or safety concerns - Bladder and Bowel Bladder continence 0-Always continent Bowel continence 0-Always continent - Endurance Poor - Balance Poor - Safety Awareness Poor CURRENT FUNC. DEFICITS: Self-Care, Mobility, Endurance, Balance, and Safety Awareness SIGNATURE PANEL: (CDT)
[2020-03-10] MEDS: DOCUSATE NA/SENNA CONC 1 TAB PO PRN (20:58)
[2020-03-10] MEDS: MELATONIN 3 MG TABLET PO PRN (20:59)
[2020-03-10] MEDS: TOPIRAMATE 25 MG TAB PO SCH (20:59)
[2020-03-11 07:23] VITALS: BP 110/72; TEMP 98.9
[2020-03-11] MEDS: FLUTICASONE 50MCG NASAL SPRAY NAS SCH (08:53)
[2020-03-11] MEDS: ACETAMINOPHEN 325 MG TABLET PO PRN (08:54)
[2020-03-11] MEDS: POTASSIUM 25 MEQ EFFERV TAB PO SCH (08:55)
[2020-03-11] MEDS: NYSTATIN 500,000 UNIT/5 ML UDC PO SCH (08:55)
[2020-03-11] MEDS: ENOXAPARIN 40 MG/0.4 ML SQ SCH (08:55)
[2020-03-11] MEDS: SODIUM CHLORIDE 1 GM TAB PO SCH (08:56)
[2020-03-11] MEDS: TAMSULOSIN 0.4 MG SR CAP PO SCH (08:56)
[2020-03-11] MEDS: MEGESTROL 40 MG TAB PO SCH (08:56)
[2020-03-11] MEDS: modafiniL 100 MG TAB PO SCH (08:56)
[2020-03-11] MEDS: LORATADINE 10 MG TAB PO SCH (08:57)
[2020-03-11] MEDS: DULOXETINE 20 MG CAP PO SCH (08:57)
[2020-03-11] MEDS: AMANTADINE 100 MG CAP PO SCH (08:57)
[2020-03-11] MEDS: MAGNESIUM OXIDE 400 MG TAB PO SCH (08:58)
[2020-03-11] MEDS: LIDOCAINE 4% PATCH TOP SCH (08:59)
[2020-03-11] MEDS: ENSURE PUDDING 4 OZ CUP PO SCH (09:00)
[2020-03-11] MEDS: carvediloL 6.25 MG TAB PO SCH (09:34)
[2020-03-11] MEDS: PROMOD 30 ML DOSE PO SCH (09:35)
--- NOTE | 2020-03-11 10:02 | P.RH.PN ---
Estimated Length of Stay: 19 Expected Discharge Date: 03/11/20 Discharge Disposition Plan: Home Family Support: Yes Group Home Goal: Mobility, Transfers, Self Care Vital Signs: Last Vital Signs Temp 98.9 F 03/11/20 07:20 Pulse 97 H 03/11/20 09:34 Resp 16 03/11/20 07:20 BP 110/72 03/11/20 09:34 Pulse Ox 98 03/11/20 07:20 Laboratory: Laboratory Last Values WBC 4.5 K/uL (4.3-10.9) D 03/10/20 05:29 RBC 3.18 M/uL (3.86-4.86) L 03/10/20 05:29 Hgb 10.2 g/dL (12.0-15.0) L 03/10/20 05:29 Hct 30.7 % (36.0-45.0) L 03/10/20 05:29 MCV 96.6 fL (80-100) 03/10/20 05:29 MCH 32.2 pg (27.0-35.0) 03/10/20 05:29 MCHC 33.4 g/dL (32.0-36.0) 03/10/20 05:29 RDW 15.1 % (12.1-15.2) 03/10/20 05:29 Plt Count 235 K/uL (152-406) 03/10/20 05:29 MPV 7.7 fL (7.6-11.3) 03/10/20 05:29 Neutrophils % 54.9 % (41.7-73.7) 03/10/20 05:29 Lymphocytes % 33.8 % (15.3-44.8) 03/10/20 05:29 Monocytes % 8.2 % (3.3-12.3) 03/10/20 05:29 Eosinophils % 2.7 % (0-4.4) 03/10/20 05:29 Basophils % 0.4 % (0-1.3) 03/10/20 05:29 Absolute Neutrophils 2.5 K/uL (1.8-8.0) 03/10/20 05:29 Absolute Lymphocytes 1.5 K/uL (0.7-4.9) 03/10/20 05:29 Absolute Monocytes 0.4 K/uL (0.1-1.3) 03/10/20 05:29 Absolute Eosinophils 0.1 K/uL (0-0.5) 03/10/20 05:29 Absolute Basophils 0.0 K/uL (0-0.5) 03/10/20 05:29 Morphology Comment Not seen (NOT SEEN) 03/03/20 05:51 Sodium 143 mmol/L (136-145) 03/10/20 05:29 Potassium 3.8 mmol/L (3.5-5.1) 03/10/20 05:29 Chloride 113 mmol/L (98-107) H 03/10/20 05:29 Carbon Dioxide 25 mmol/L (21-32) 03/10/20 05:29 BUN 6 mg/dL (7-18) L 03/10/20 05:29 Creatinine 0.59 mg/dL (0.55-1.3) 03/10/20 05:29 Estimated GFR > 90 mL/min (=/>90) 03/10/20 05:29 Glucose 92 mg/dL (74-106) 03/10/20 05:29 Calcium 8.7 mg/dL (8.5-10.1) 03/10/20 05:29 Magnesium 2.3 mg/dL (1.8-2.4) 03/10/20 05:29 Albumin 2.8 g/dL (3.4-5.0) L 03/10/20 05:29 Prealbumin 26.7 mg/dL (20-40) 03/10/20 05:29 Urine Color Cancelled 03/04/20 21:18 Urine Appearance Cancelled 03/04/20 21:18 Urine pH Cancelled 03/04/20 21:18 Ur Specific [place] Cancelled 03/04/20 21:18 Glucose (UA)(Auto) Cancelled 03/04/20 21:18 Urine Ketones Cancelled 03/04/20 21:18 Urine Blood Cancelled 03/04/20 21:18 Urine Nitrite Cancelled 03/04/20 21:18 Urine Bilirubin Cancelled 03/04/20 21:18 Urine Urobilinogen Cancelled 03/04/20 21:18 Ur Leukocyte Esterase Cancelled 03/04/20 21:18 Urine RBC Cancelled 03/04/20 21:18 Urine WBC Cancelled 03/04/20 21:18 Ur Squamous Epith Cells Cancelled 03/04/20 21:18 Ur Urothelial Cells Cancelled 03/04/20 21:18 Calcium Oxalate Crystal Cancelled 03/04/20 21:18 Uric Acid Crystals Cancelled 03/04/20 21:18 Triple Phos Crystals Cancelled 03/04/20 21:18 Other Crystals Cancelled 03/04/20 21:18 Amorphous Sediment Cancelled 03/04/20 21:18 Glitter Cells Cancelled 03/04/20 21:18 Urine Bacteria Cancelled 03/04/20 21:18 Hyaline Casts Cancelled 03/04/20 21:18 Fine Granular Casts Cancelled 03/04/20 21:18 Coarse Granular Casts Cancelled 03/04/20 21:18 Waxy Casts Cancelled 03/04/20 21:18 RBC Casts Cancelled 03/04/20 21:18 WBC Casts Cancelled 03/04/20 21:18 Urine Mucus Cancelled 03/04/20 21:18 Urine Other Cancelled 03/04/20 21:18 Urine Trichomonas Cancelled 03/04/20 21:18 Urine Yeast Cancelled 03/04/20 21:18 Ur Yeast w Hyphae Cancelled 03/04/20 21:18 Urine Yeast (Budding) Cancelled 03/04/20 21:18 Urine Sperm Cancelled 03/04/20 21:18 Urine Culture Reflexed Cancelled 03/04/20 21:18 Urine Total Volume Cancelled 03/04/20 21:18 Urine Total Protein Cancelled 03/04/20 21:18 Weight: 122 lb 12.8 oz Wound Present: No Closed Surgical Incision Present: Yes Negative Pressure Wound Therapy Present: No Physician Update: Her labs were reviewed and are stable. She will be discharged home today with out patient PT/OT/speech therapy at the [facility]. She is independent with all activities including transfers. Functional Improvement: pt has demonstrated progress throughout the week and has met her functional goals. pt is Independent with functional mobility and ambulation. pt is set for discharge. Speech Therapy Update: Mild cognitive impairment and mild oropharyngeal dysphagia; now on mechanical soft and regular liquids Summary: Patient's care plan and jail goals have been reviewed and revised as necessary. Please see the Rehabilitation Signature page for all necessary signatures.
--- NOTE | 2020-03-11 12:14 | FAST ---
ENCOUNTER DATE AND TIME: 03/11/2020 08:00 (CDT) NAME JEREMY GROSS DATE OF : 1955 DATE OF ADMISSION: 02/22/2020 14:50 (CDT) PHONE: AGE: 64 N# [id number] GENDER: Female ENCOUNTER PHYSICIAN: Dr. Florentin Hoover M.D. ADMISSION DIAGNOSIS: - Stroke 01 - Left Body (Right Brain) (01.1) Subarachnoid hemorrhage. EATING: Not assessed/no information CODE: - ORAL HYGIENE: ORAL HYGIENE - STEP 1: Does the patient complete the activity by him/herself with no assistance (physical, verbal/nonverbal cueing, setup/clean-up)? Yes. 1. [id number] ADMISSION PERFORMANCE: Independent CODE: 06 TOILETING HYGIENE: TOILETING HYGIENE - STEP 1: Does the patient complete the activity by him/herself with no assistance (physical, verbal/nonverbal cueing, setup/clean-up)? Yes. 1. [id number] ADMISSION PERFORMANCE: Independent CODE: 06 BATHING: SHOWER/BATHE SELF - STEP 1: Does the patient complete the activity by him/herself with no assistance (physical, verbal/nonverbal cueing, setup/clean-up)? Yes. 1. [id number] ADMISSION PERFORMANCE: Independent CODE: 06 DRESSING - UPPER BODY: DRESSING - UPPER BODY - STEP 1: Does the patient complete the activity by him/herself with no assistance (physical, verbal/nonverbal cueing, setup/clean-up)? No. DRESSING - UPPER BODY - STEP 2: Does the patient need only setup/clean-up assistance from one helper? No. DRESSING - UPPER BODY - STEP 3: Does the patient need only verbal/nonverbal cueing or touching/steadying/contact guard assistance fro m one helper? Yes. 1. [id number] ADMISSION PERFORMANCE: Supervision or touching assistance CODE: 04 DRESSING - LOWER BODY: DRESSING - LOWER BODY - STEP 1: Does the patient complete the activity by him/herself with no assistance (physical, verbal/nonverbal cueing, setup/clean-up)? Yes. 1. [id number] ADMISSION PERFORMANCE: Independent CODE: 06 PUTTING ON/TAKING OFF FOOTWEAR: FOOTWEAR - STEP 1: Does the patient complete the activity by him/herself with no assistance (physical, verbal/nonverbal cueing, setup/clean-up)? Yes. 1. [id number] ADMISSION PERFORMANCE: Independent CODE: 06 DOES THE PATIENT USE A WHEELCHAIR/SCOOTER? CODE: EXPR INDICATE THE TYPE OF WHEELCHAIR/SCOOTER USED: CODE: EXPR INDICATE THE TYPE OF WHEELCHAIR/SCOOTER USED: CODE: EXPR BLADDER AND BOWEL: CODE: EXPR CODE: EXPR SIGNATURE PANEL: The following modified sections: 1. [id number] Admission Performance, 1. [id number] Admission Performance, 1. [id number] Admission Performance, 1. [id number] Admission Performance, 1. [id number] Admission Performance, 1. [id number] Admission Performance, 1. [id number] Admission Performance, 1. [id number] Admission Performance , 1. [id number] Admission Performance were [electronically] signed by SKY Michelle on SatMar 11 2020 12:12:58 GMT-0500 (Central Daylight Time)
== END 2020-03-11 14:25 | disposition home or self-care (01) | DRG 57 ==
LOC: 5TH 02-22 14:50
PROVIDERS: ADMIT Psychiatry & Neurology Neurology with Special Qualifications in Child Neurology; ATTEND Psychiatry & Neurology Neurology with Special Qualifications in Child Neurology
DX: I69.054 Hemiplegia and hemiparesis following nontraumatic subarachnoid hemorrhage affecting left non-dominant side (principal); F32.9 Major depressive disorder, single episode, unspecified; B96.20 Unspecified Escherichia coli [E. coli] as the cause of diseases classified elsewhere
CPT/HCPCS: 36415; 72100; 72220; 74230; 80048; 81001; 81003; 82040; 83735; 84134; 85025; 87077; 87086; 87088; 87186; 92507; 92523; 92526; 92611; 97110; 97112; 97116; 97124; 97161; 97530; J1650; J7030